=== PATIENT | male | born 1990 | race Caucasian/White ===

== ENCOUNTER → 2016-12-30 | Outpatient (CLI) | payer MEDICARE, OTHER ==
--- NOTE | 2016-12-30 11:53 | FL ---
EXAMINATION TYPE: FL barium swallow w video DATE OF EXAM ORDERED: 12/30/2016 HISTORY: R13.10 dysphagia. COMPARISON: None. TECHNIQUE: The patient was challenged with varying food substances ranging from thin liquids through solids. FINDINGS: The patient handled all foodstuffs well. There is no penetration or aspiration. IMPRESSION: NORMAL MODIFIED BARIUM SWALLOW.
== END | disposition home or self-care (01) ==
LOC: RADFLMAIN 11:03
PROVIDERS: ATTEND Internal Medicine
DX: R13.10 Dysphagia, unspecified (principal)
CPT/HCPCS: 74230

== ENCOUNTER 2020-10-28 09:23 | Inpatient (IN) | payer MEDICARE, OTHER ==
[2020-10-28 09:34] LABS: Glucose,Whole Blood 112 mg/dL (75-99)
[2020-10-28] MEDS ORDERED: SODIUM CHLORIDE 0.9% 1,000 ML IV ONE (09:34)
[2020-10-28] MEDS ORDERED: SODIUM CHLORIDE 0.9% 500 ML 500 ML IV ONE (09:34)
[2020-10-28 09:40] LABS: Basophils % (A) 1 %; Eosinophils % (A) 1 %; HCT 42.7 % (39.0-53.0); HGB 14.8 gm/dL (13.0-17.5); Lymphocytes # (A) 1.2 k/uL (1.0-4.8); Lymphocytes % (A) 25 %; MCHC 34.7 g/dL (31.0-37.0); MCV 86.6 fL (80.0-100.0); Mean Platelet Volume 7.4; Monocytes # (A) 0.3 k/uL (0-1.0); Monocytes % (A) 7 %; Neutrophils # (A) 3.1 k/uL (1.3-7.7); Neutrophils % (A) 65 %; Platelet Count 215 k/uL (150-450); RBC 4.93 m/uL (4.30-5.90); RDW 11.7 % (11.5-15.5); WBC 4.8 k/uL (3.8-10.6)
--- NOTE | 2020-10-28 09:47 | ED ---
General Adult HPI - General Chief complaint: Altered Mental Status Stated complaint: altered mental status Time Seen by Provider: 10/28/20 09:26 Source: EMS, RN notes reviewed, old records reviewed Mode of arrival: EMS Limitations: language barrier, altered mental status, physical limitation - History of Present Illness Initial comments: 30-year-old male presenting with EMS with altered mental status. Patient is coming from a alf, history of cerebral palsy. This morning the patient had been administered the wrong patient's medications which included fluphenazine, Pepcid, Claritin, and Lamictal. He was given these medications instead of his own. He was found to be more lethargic and was transported by EMS for evaluation. During transport he was lethargic, maintaining his airway with mild cough. Stable vitals. - Related Data Home Medications Medication Instructions Recorded Confirmed Albuterol Sulfate [Ventolin HFA] 2 puff INHALATION RT-QID PRN 10/28/20 10/28/20 Baclofen [Lioresal] 50 mg PO BID@0600,199910/28/20 10/28/20 Bismuth Subsalicylate 1 dose PO DIRECTED PRN 10/28/20 10/28/20 [Pepto-Bismol] Chlorhexidine Gluconate [Peridex] 15 ml PO BID@0800,199910/28/20 10/28/20 Cholecalciferol [Vitamin D3 (25 25 mcg PO DAILY@59910/28/20 10/28/20 Mcg = 1000 Iu)] Denta Paste 1 dose DENTAL BID@0800,199910/28/20 10/28/20 HYDROcodone/APAP 5-325MG [[place] 1 tab PO QID PRN 10/28/20 10/28/20 5-325] Hydrocortisone Cream 1 applic TOPICAL DIRECTED PRN 10/28/20 10/28/20 [Hydrocortisone 1% Cream] Ibuprofen [Motrin Ib] 200 mg PO TID PRN 10/28/20 10/28/20 Loperamide [Imodium] 2 - 4 mg PO DIRECTED PRN 10/28/20 10/28/20 Magnesium Hydroxide [Milk of 2,400 mg PO Q72H PRN 10/28/20 10/28/20 Magnesia] Omeprazole 20 mg PO DAILY@59910/28/20 10/28/20 Pseudoephedrine [Sudafed] 30 - 60 mg PO Q6H PRN 10/28/20 10/28/20 diphenhydrAMINE [Benadryl] 25 mg PO DIRECTED PRN 10/28/20 10/28/20 lisinopriL [Zestril] 10 mg PO DAILY@0600 10/28/20 10/28/20 tiZANidine [Zanaflex] 4 mg PO BID@599,199910/28/20 10/28/20 Allergies Allergy/AdvReac Type Severity Reaction Status Date / Time No Known Allergies Allergy Verified 10/28/20 10:00 Review of Systems ROS Statement: Those systems with pertinent positive or pertinent negative responses have been documented in the HPI. ROS Other: All systems not noted in ROS Statement are negative. Past Medical History Past Medical History: Unable to Obtain Additional Past Medical History / Comment(s): mentally challenged, cerbral palsy History of Any Multi-Drug Resistant Organisms: Unobtainable Past Surgical History: Unable to Obtain Past Psychological History: Unable to Obtain Smoking Status: Unknown if ever smoked Past Alcohol Use History: Unable to Obtain Past Drug Use History: Unable to Obtain General Exam Limitations: language barrier, altered mental status, physical limitation General appearance: in no apparent distress, obtunded Head exam: Present: atraumatic, normocephalic Eye exam: Present: normal appearance, PERRL ENT exam: Present: mucous membranes dry Neck exam: Present: normal inspection. Absent: tenderness, meningismus Respiratory exam: Present: rales, rhonchi. Absent: respiratory distress Cardiovascular Exam: Present: normal rhythm, tachycardia GI/Abdominal exam: Present: soft. Absent: distended, tenderness, guarding, r ebound Extremities exam: Present: other (Contracted extremities) Skin exam: Present: warm, dry, intact Course Vital Signs 10/28/20 10/28/20 09:25 09:34 Temperature 97.7 F Pulse Rate 112 H Respiratory 18 Rate Blood Pressure 124/89 O2 Sat by Pulse 94 L 92 L Oximetry EKG Findings - EKG Comments: EKG Findings:: EKG: Normal sinus rhythm, rate 97, [place] interval 126, QRS duration 92, QTC 419, no ST segment elevation. Medical Decision Making - Medical Decision Making 30 -year-old male with cerebral palsy, presents with decreased level consciousness, altered mental status after being administered the antipsychotic fluphenazine and Lamictal which are not his normal medications. He did have some tachypnea and hypoxia likely secondary to sedation. He has a strong gag reflex and a good cough. He does not require intubation while in the emergency department. He had been administered these medications at approximately 6 AM. Patient has normal laboratory testing. The chest x-ray does reveal severe scoliosis and a large hiatal hernia with no focal pneumonia no pneumothorax. He will be admitted for close observation. Case discussed with Dr. An who will admit. - Lab Data Result diagrams: 10/28/20 09:36 10/28/20 09:36 Lab Results 10/28/20 10/28/20 10/28/20 Range/Units 09:28 09:36 09:36 WBC 4.8 (3.8-10.6) k/uL RBC 4.93 (4.30-5.90) m/uL Hgb 14.8 (13.0-17.5) gm/dL Hct 42.7 (39.0-53.0) % MCV 86.6 (80.0-100.0) fL MCH 30.0 (25.0-35.0) pg MCHC 34.7 (31.0-37.0) g/dL RDW 11.7 (11.5-15.5) % Plt Count 215 (150-450) k/uL MPV 7.4 Neutrophils % 65 % Lymphocytes % 25 % Monocytes % 7 % Eosinophils % 1 % Basophils % 1 % Neutrophils # 3.1 (1.3-7.7) k/uL Lymphocytes # 1.2 (1.0-4.8) k/uL Monocytes # 0.3 (0-1.0) k/uL Eosinophils # 0.0 (0-0.7) k/uL Basophils # 0.0 (0-0.2) k/uL PT 11.5 (9.0-12.0) sec INR 1.1 (<1.2) APTT 23.6 (22.0-30.0) sec Sodium (137-145) mmol/L Potassium (3.5-5.1) mmol/L Chloride (98-107) mmol/L Carbon Dioxide (22-30) mmol/L Anion Gap mmol/L BUN (9-20) mg/dL Creatinine (0.66-1.25) mg/dL Est GFR (CKD-EPI)AfAm (>60 ml/min/1.73 sqM) Est GFR (CKD-EPI)NonAf (>60 ml/min/1.73 sqM) Glucose (74-99) mg/dL POC Glucose (mg/dL) 112 H (75-99) mg/dL POC Glu Inpatient Coder ID Mckenzie Cook Calcium (8.4-10.2) mg/dL Total Bilirubin (0.2-1.3) mg/dL AST (17-59) U/L ALT (4-49) U/L Alkaline Phosphatase (38-126) U/L Total Protein (6.3-8.2) g/dL Albumin (3.5-5.0) g/dL Urine Color Urine Appearance (Clear) Urine pH (5.0-8.0) Ur Specific [place] (1.001-1.035) Urine Protein (Negative) Urine Glucose (UA) (Negative) Urine Ketones (Negative) Urine Blood (Negative) Urine Nitrite (Negative) Urine Bilirubin (Negative) Urine Urobilinogen (<2.0) mg/dL Ur Leukocyte Esterase (Negative) Urine Opiates Screen (NotDetected) Ur Oxycodone Screen (NotDetected) Urine Methadone Screen (NotDetected) Ur Propoxyphene Screen (NotDetected) Ur Barbiturates Screen (NotDetected) U Tricyclic Antidepress (NotDetected) Ur Phencyclidine Scrn (NotDetected) Ur Amphetamines Screen (NotDetected) U Methamphetamines Scrn (NotDetected) U Benzodiazepines Scrn (NotDetected) Urine Cocaine Screen (NotDetected) U Marijuana (THC) Screen (NotDetected) 10/28/20 10/28/20 Range/Units 09:36 09:42 WBC (3.8-10.6) k/uL RBC (4.30-5.90) m/uL Hgb (13.0-17.5) gm/dL Hct (39.0-53.0) % MCV (80.0-100.0) fL MCH (25.0-35.0) pg MCHC (31.0-37.0) g/dL RDW (11.5-15.5) % Plt Count (150-450) k/uL MPV Neutrophils % % Lymphocytes % % Monocytes % % Eosinophils % % Basophils % % Neutrophils # (1.3-7.7) k/uL Lymphocytes # (1.0-4.8) k/uL Monocytes # (0-1.0) k/uL Eosinophils # (0-0.7) k/uL Basophils # (0-0.2) k/uL PT (9.0-12.0) sec INR (<1.2) APTT (22.0-30.0) sec Sodium 139 (137-145) mmol/L Potassium 4.0 (3.5-5.1) mmol/L Chloride 105 (98-107) mmol/L Carbon Dioxide 28 (22-30) mmol/L Anion Gap 6 mmol/L BUN 19 (9-20) mg/dL Creatinine 0.52 L (0.66-1.25) mg/dL Est GFR (CKD-EPI)AfAm >90 (>60 ml/min/1.73 sqM) Est GFR (CKD-EPI)NonAf >90 (>60 ml/min/1.73 sqM) Glucose 126 H (74-99) mg/dL POC Glucose (mg/dL) (75-99) mg/dL POC Glu Inpatient Coder ID Calcium 8.9 (8.4-10.2) mg/dL Total Bilirubin 0.5 (0.2-1.3) mg/dL AST 25 (17-59) U/L ALT 25 (4-49) U/L Alkaline Phosphatase 73 (38-126) U/L Total Protein 6.6 (6.3-8.2) g/dL Albumin 4.2 (3.5-5.0) g/dL Urine Color Yellow Urine Appearance Clear (Clear) Urine pH 6.5 (5.0-8.0) Ur Specific [place] 1.027 (1.001-1.035) Urine Protein Negative (Negative) Urine Glucose (UA) Negative (Negative) Urine Ketones Negative (Negative) Urine Blood Negative (Negative) Urine Nitrite Negative (Negative) Urine Bilirubin Negative (Negative) Urine Urobilinogen 3.0 (<2.0) mg/dL Ur Leukocyte Esterase Negative (Negative) Urine Opiates Screen Not Detected (NotDetected) Ur Oxycodone Screen Not Detected (NotDetected) Urine Methadone Screen Not Detected (NotDetected) Ur Propoxyphene Screen Not Detected (NotDetected) Ur Barbiturates Screen Not Detected (NotDetected) U Tricyclic Antidepress Not Detected (NotDetected) Ur Phencyclidine Scrn Not Detected (NotDetected) Ur Amphetamines Screen Not Detected (NotDetected) U Methamphetamines Scrn Not Detected (NotDetected) U Benzodiazepines Scrn Not Detected (NotDetected) Urine Cocaine Screen Not Detected (NotDetected) U Marijuana (THC) Screen Detected H (NotDetected) Disposition Clinical Impression: Altered mental status, Medication administered in error Disposition: ADMITTED IP TO THIS [facility] Condition: Stable Is patient prescribed a controlled substance at d/c from ED?: No Referrals: Javon Gunter MD [Primary Care Provider] - 1-2 days Decision to Admit Reason: Admit from EC Decision Date: 10/28/20 Decision Time: 10:34
[2020-10-28 09:49] LABS: ALT 25 U/L (4-49); AST 25 U/L (17-59); African American GFR (CKD) >90 (>60 ml/min/1.73 sqM); Albumin 4.2 g/dL (3.5-5.0); Alkaline Phosphatase 73 U/L (38-126); Anion Gap 6 mmol/L; Blood Urea Nitrogen 19 mg/dL (9-20); Calcium 8.9 mg/dL (8.4-10.2); Carbon Dioxide 28 mmol/L (22-30); Chloride 105 mmol/L (98-107); Glucose 126 mg/dL (74-99); Non-African American GFR(CKD) >90 (>60 ml/min/1.73 sqM); Sodium 139 mmol/L (137-145); Total Bilirubin 0.5 mg/dL (0.2-1.3); Total Protein 6.6 g/dL (6.3-8.2)
[2020-10-28 09:51] LABS: Appearance,Urine Clear (Clear); Bilirubin,Urine Negative (Negative); Blood,Urine Negative (Negative); Color,Urine Yellow; Glucose,Urine (UA) Negative (Negative); Ketones,Urine Negative (Negative); Leukocyte Esterase,Urine Negative (Negative); Nitrite,Urine Negative (Negative); PH, Urine 6.5 (5.0-8.0); Protein,Urine Negative (Negative); Specific Gravity,Urine 1.027 (1.001-1.035)
[2020-10-28 09:53] LABS: INR 1.1 (<1.2); Partial Thromboplastin Time 23.6 sec (22.0-30.0); Prothrombin Time 11.5 sec (9.0-12.0)
[2020-10-28 10:04] LABS: Amphetamine Screen,Urine Not Detected (NotDetected); Barbiturate Screen,Urine Not Detected (NotDetected); Benzodiazepines Screen,Urine Not Detected (NotDetected); Cocaine Screen,Urine Not Detected (NotDetected); Methadone Screen, Urine Not Detected (NotDetected); Opiate Screen,Urine Not Detected (NotDetected); Oxycodone Screen, Urine Not Detected (NotDetected); Phencyclidine Screen,Urine Not Detected (NotDetected); Tricyclic Antidepressant,Urine Not Detected (NotDetected); Urn Cannabinoid Scrn Detected (NotDetected)
--- NOTE | 2020-10-28 10:07 | XR ---
EXAMINATION TYPE: XR chest 1V portable DATE OF EXAM: 10/28/2020 COMPARISON: 06/02/2018 HISTORY: Altered mental status TECHNIQUE: Single frontal view of the chest is obtained. FINDINGS: Large hiatal hernia. There is a severe scoliosis. Coarsened interstitium seen. No pleural effusion or pneumothorax. No focal pneumonia. Heart is enlarged. IMPRESSION: 1. Severe rotatory scoliosis with a large hiatal hernia.
[2020-10-28] MEDS ORDERED: NALOXONE 0.4 MG/ML 1 ML VIAL IV PRN ×2 (10:34→14:46)
[2020-10-28 12:53] LABS: ABG Base Excess -0.3 mmol/L; ABG HCO3 25 mmol/L (21-25); ABG Oxygen Saturation 91.9 % (94-97); ABG PCO2 42 mmHg (35-45); ABG PH 7.38 (7.35-7.45); ABG PO2 62 mmHg (83-108); ABG TCO2 26 mmol/L (19-24); Allen Test Performed? Yes
[2020-10-28] MEDS: SODIUM CHLORIDE 0.9% 1,000 ML IV SCH (13:25)
[2020-10-28] MEDS ORDERED: ACETAMINOPHEN TAB 325 MG TAB PO PRN (14:46)
[2020-10-28] MEDS ORDERED: MAGNESIUM HYDROXIDE 2,400 MG/10 ML CUP PO PRN (14:48)
[2020-10-28] MEDS ORDERED: HYDROcodone/APAP 5-325MG 1 EACH TAB PO PRN (14:48)
[2020-10-28] MEDS ORDERED: PSEUDOEPHEDRINE 30 MG TAB PO PRN (14:48)
[2020-10-28] MEDS ORDERED: IBUPROFEN 200 MG TAB PO PRN (14:48)
[2020-10-28] MEDS ORDERED: LOPERAMIDE 2 MG CAP PO PRN (14:48)
[2020-10-28] MEDS ORDERED: BISMUTH SUBSALICYLATE 4,192 MG/240 ML BOTTLE PO PRN (14:48)
[2020-10-28] MEDS ORDERED: ALBUTEROL HFA INHALER INHALATION PRN (14:48)
[2020-10-28] MEDS ORDERED: HYDROCORTISONE 1% CREAM 30 GM TUBE TOPICAL PRN (14:48)
[2020-10-28] MEDS ORDERED: diphenhydrAMINE 25 MG CAP PO PRN (14:48)
--- NOTE | 2020-10-28 15:47 | P.HPIM ---
History of Present Illness H&P Date: 10/28/20 Chief Complaint: Somnolence 30 year old man with cerebral palsy and quadriparesis presented for somnolence. He lives in a senior living and was in his usual state of health when he was given the wrong medication by care staff. Patient subsequently became altered and difficult to arouse, resulting in EMS being called. He was BIBA for medical observation and was noted to have new oxygen requirement. He was arousable to painful stimulus only. He took 20mg famotidine, 5mg fluphenazine, and 350mg lamictal. He did not take his own medications as a consequence, which were b aclofen, tizanidine, atenolol, glimepiride, levothyroxine. Patient is not able to particpate in ROS of interview due to somnolence. Review of Systems See HPI Past Medical History Past Medical History: Unable to Obtain Additional Past Medical History / Comment(s): mentally challenged, cerbral palsy History of Any Multi-Drug Resistant Organisms: Unobtainable Past Surgical History: Unable to Obtain Past Psychological History: Unable to Obtain Smoking Status: Unknown if ever smoked Past Alcohol Use History: Unable to Obtain Past Drug Use History: Unable to Obtain Medications and Allergies Home Medications Medication Instructions Recorded Confirmed Type Albuterol Sulfate [Ventolin HFA] 2 puff INHALATION RT-QID PRN 10/28/20 10/28/20 History Baclofen [Lioresal] 50 mg PO BID@0600,199910/28/20 10/28/20 History Bismuth Subsalicylate 1 dose PO DIRECTED PRN 10/28/20 10/28/20 History [Pepto-Bismol] Chlorhexidine Gluconate [Peridex] 15 ml PO BID@0800,199910/28/20 10/28/20 History Cholecalciferol [Vitamin D3 (25 25 mcg PO DAILY@59910/28/20 10/28/20 History Mcg = 1000 Iu)] Denta Paste 1 dose DENTAL BID@0800,199910/28/20 10/28/20 History HYDROcodone/APAP 5-325MG [[place] 1 tab PO QID PRN 10/28/20 10/28/20 History 5-325] Hydrocortisone Cream 1 applic TOPICAL DIRECTED PRN 10/28/20 10/28/20 History [Hydrocortisone 1% Cream] Ibuprofen [Motrin Ib] 200 mg PO TID PRN 10/28/20 10/28/20 History Loperamide [Imodium] 2 - 4 mg PO DIRECTED PRN 10/28/20 10/28/20 History Magnesium Hydroxide [Milk of 2,400 mg PO Q72H PRN 10/28/20 10/28/20 History Magnesia] Omeprazole 20 mg PO DAILY@59910/28/20 10/28/20 History Pseudoephedrine [Sudafed] 30 - 60 mg PO Q6H PRN 10/28/20 10/28/20 History diphenhydrAMINE [Benadryl] 25 mg PO DIRECTED PRN 10/28/20 10/28/20 History lisinopriL [Zestril] 10 mg PO DAILY@59910/28/20 10/28/20 History tiZANidine [Zanaflex] 4 mg PO BID@599,199910/28/20 10/28/20 History Allergies Allergy/AdvReac Type Severity Reaction Status Date / Time No Known Allergies Allergy Verified 10/28/20 10:00 Physical Exam Osteopathic Statement: *. No significant issues noted on an osteopathic structural exam other than those noted in the History and Physical/Consult. Vitals: Vital Signs Temp Pulse Resp BP Pulse Ox 10/28/20 12:30 118 H 129/81 10/28/20 12:08 94 L 10/28/20 12:00 106 H 20 138/97 94 L 10/28/20 11:30 117 H 20 164/92 10/28/20 11:00 117 H 20 150/92 98 10/28/20 10:30 99 20 116/76 98 10/28/20 10:05 98 10/28/20 10:00 101 H 18 113/66 10/28/20 09:34 92 L 10/28/20 09:30 109 H 20 135/89 88 L 10/28/20 09:25 97.7 F 112 H 18 124/89 94 L Intake and Output 10/28/20 10/28/20 10/28/20 06:59 14:59 22:59 Other: Weight 43.091 kg Gen: Arousable to painful stimulus only HEENT: normocephalic, atraumatic, good hearing acuity, moist mucous membranes Resp: good air exchange, breathing comfortably with no accessory muscle use CVS: good distal perfusion x 4, GI: soft, NTTP, ND : no SPT, no CVAT, mccrary catheter is present MSK: no pitting edema, no clubbing Neuro: Cachectic lower and upper extremities, not following commands Results CBC & Chem 7: 10/28/20 09:36 10/28/20 09:36 Labs: Abnormal Lab Results - Last 24 Hours (Table) 10/28/20 10/28/20 10/28/20 Range/Units 09:28 09:36 09:42 ABG pO2 (83-108) mmHg ABG Total CO2 (19-24) mmol/L ABG O2 Saturation (94-97) % Creatinine 0.52 L (0.66-1.25) mg/dL Glucose 126 H (74-99) mg/dL POC Glucose (mg/dL) 112 H (75-99) mg/dL U Marijuana (THC) Screen Detected H (NotDetected) 10/28/20 Range/Units 12:50 ABG pO2 62 L (83-108) mmHg ABG Total CO2 26 H (19-24) mmol/L ABG O2 Saturation 91.9 L (94-97) % Creatinine (0.66-1.25) mg/dL Glucose (74-99) mg/dL POC Glucose (mg/dL) (75-99) mg/dL U Marijuana (THC) Screen (NotDetected) Assessment and Plan Assessment: Acute hypoxemic respiratory failure Acute toxic/metabolic encephalopathy -Admit to observation -Oxygen when necessary -ABG demonstrates hypoxemic respiratory failure without hypercarbia -Hold home tizanidine, baclofen -Repeat chest x-ray tomorrow a.m. to ensure no aspiration -For now, patient is protecting his airway, reassess frequently Cerebral palsy Hypothyroidism Chronic pain -Home medications reviewed and reconciled -Hold home glimepiride; qAC/HS sugar checks, low-dose sliding scale insulin -Hold home tizanidine, baclofen, [place] -Continue home atenolol, levothyroxine Patient is a full code Heparin 3 times a day for DVT prophylaxis
[2020-10-28] MEDS ORDERED: [UNRECOGNIZED DRUG - OTHER] DENTAL SCH (20:00)
[2020-10-28] MEDS ORDERED: ACETAMINOPHEN IV (For NPO) 1,000 MG in EMPTY BAG 1 BAG IVPB STA (22:48)
[2020-10-28] MEDS ORDERED: ACETAMINOPHEN IV (For NPO) 500 MG in EMPTY BAG 1 BAG IVPB STA (22:49)
[2020-10-29] MEDS ORDERED: SODIUM CHLORIDE 0.9% 500 ML 500 ML IV ONE (06:04)
[2020-10-29] MEDS: SODIUM CHLORIDE 0.9% 1,000 ML IV SCH ×2 (09:15→18:01)
[2020-10-29] MEDS: CHOLECALCIFEROL 25 MCG (1000 IU) TABLET PO SCH (09:16)
[2020-10-29] MEDS: PANTOPRAZOLE 40 MG TABLET PO SCH (09:16)
[2020-10-29] MEDS: lisinopriL 10 MG TAB PO SCH (09:16)
[2020-10-29 10:20] LABS: Basophils # (A) 0.03 X 10*3/uL (0.00-0.10); Basophils % (A) 0.2 %; Eosinophils # (A) 0 X 10*3/uL (0.04-0.35); Eosinophils % (A) 0 %; HCT 42.9 % (39.6-50.0); HGB 14.4 g/dL (13.0-17.0); Lymphocytes # (A) 0.66 X 10*3/uL (0.90-5.00); Lymphocytes % (A) 5.5 %; MCH 29.7 pg (27.0-32.0); MCHC 33.6 g/dL (32.0-37.0); MCV 88.5 fL (80.0-97.0); Mean Platelet Volume 10.9 fL (9.5-12.2); Monocytes # (A) 0.69 X 10*3/uL (0.20-1.00); Monocytes % (A) 5.7 %; Neutrophils # (A) 10.67 X 10*3/uL (1.80-7.70); Neutrophils % (A) 88.4 %; Platelet Count 205 X 10*3/uL (140-440); RBC 4.85 X 10*6/uL (4.40-5.60); RDW 11.9 % (11.5-14.5); WBC 12.08 X 10*3/uL (4.50-10.00)
[2020-10-29 10:55] LABS: African American GFR (CKD) 148.8 (60.0-200.0); Anion Gap 13.3 mmol/L (4.00-12.00); BUN/Creat Ratio 18.57 Ratio (12.00-20.00); Calcium 8.7 mg/dL (8.7-10.3); Carbon Dioxide 20.7 mmol/L (21.6-31.8); Magnesium 1.7 mg/dL (1.5-2.4); Non-African American GFR(CKD) 128.4 (60.0-200.0); Potassium 3.8 mmol/L (3.5-5.5)
--- NOTE | 2020-10-29 11:29 | XR ---
EXAMINATION TYPE: XR chest 1V portable DATE OF EXAM: 10/29/2020 COMPARISON: 10/28/2020 HISTORY: Fever TECHNIQUE: Single frontal view of the chest is obtained. FINDINGS: There is new patchy infiltrate in the left perihilar region. Nodule in the right upper lob e measuring 8 mm now seen on today's exam but not clearly seen on prior exam. Therefore could be jesus factual related to chest lead. Severe rotatory scoliosis. Large hiatal hernia cardiomegaly stable. IMPRESSION: 1. Interval development of patchy left upper lobe infiltrate correlate for developing pneumonia. 2. 8 mm nodule right upper lobe was not seen on recent previous exam could be artifactual. Follow-up chest x-ray recommended short-term basis.
[2020-10-29] MEDS ORDERED: SODIUM CHLORIDE 0.9% 1,000 ML IV ONE ×2 (11:39→11:40)
[2020-10-29 11:50] LABS: Appearance,Urine Clear (Clear); Bacteria,Urine Rare /hpf; Bilirubin,Urine Negative (Negative); Blood,Urine Moderate (Negative); Color,Urine Light Yellow; Glucose,Urine (UA) 3+ (Negative); Ketones,Urine 1+ (Negative); Leukocyte Esterase,Urine Moderate (Negative); Mucus,Urine Rare /hpf; Nitrite,Urine Negative (Negative); PH, Urine 7.5 (5.0-8.0); Protein,Urine Negative (Negative); RBC,Urine 3 /hpf (0-5); Urobilinogen,Urine <2.0 mg/dL (<2.0); WBC,Urine 16 /hpf (0-5)
[2020-10-29] MEDS: AZITHROMYCIN 500 MG in SODIUM CHLORIDE 0.9% 250 ML IVPB SCH (14:13)
--- NOTE | 2020-10-29 18:34 | P.PN ---
<Tito Canseco - Last Filed: 10/29/20 18:22> Subjective Progress Note Date: 10/29/20 Hospital course: Patient is a very pleasant 30-year-old male with a past medical history of cer ebral palsy with quadriparesis, developmentally delayed, hypothyroidism, and hypertension. Patient presented on 10/28/20 from a snf secondary to chief complaint of somnolence after reportedly receiving the wrong medication by care staff. Patient was reportedly given famotidine, fluphenazine, and Lamictal and was later found difficult to arouse resulting in EMS being called out to the snf. Upon arrival to Hospital patient was found to have significant new oxygen requirement and was arousable only to painful stimuli. Physical exam: Upon arrival to the bedside this morning patient was found to be awake and alert able to answer simple yes and no questions. Patient was found to be tachycardic with heart rate in 140s, diaphoretic, febrile, and upon examination had noted diffuse rhonchi. Orders placed for a lactate, chest x-ray, blood cultures, and urine culture. Lamictal and TSH levels also drawn. Lactate 2.6. Patient was given a 2 L bolus along with Tylenol for fever. Repeat lactate 1.6. Chest x- ray resulted revealing development of patchy left upper lobe infiltrate correlated for developing pneumonia along with 8 mm nodule in right upper lobe that was not seen on previous exam and could be identified as artifact as a repeat follow-up x-ray as recommended. Patient started on IV antibiotics azithromycin and Rocephin. He remains on 6 L O2 via nasal cannula with SpO2 of 95%. Patient denies having any headache, chest pain, palpitations, or feeling short of breath. General: non toxic, no distress, appears at stated age Derm: warm, dry Head: atraumatic, normocephalic, symmetric Eyes: EOMI, no lid lag, anicteric sclera Mouth: no lip lesion, mucus membranes moist Cardiovascular: S1S2 reg, no murmur, positive posterior tibial pulse bilateral, Lungs: CTA bilateral, no rhonchi, no rales , no accessory muscle use Abdominal: soft, nontender to palpation, no guarding, no appreciable organomegaly Ext: no gross muscle atrophy, no edema, no contractures Neuro: CN II-XI grossly intact, no focal neuro deficits Psych: Alert, oriented, appropriate affect Plan of care: Sepsis secondary to Left upper lobe pneumonia -Patient received sepsis bolus followed by maintenance infusion of IV fluids. -IV antibiotics: Rocephin and azithromycin. -Symptomatic care and pain management. -Tylenol for fever. Acute toxic/metabolic encephalopathy with somnolence possibly secondary to acute infection versus adverse medication reaction, resolved Cerebral palsy with quadriparesis -Resume baclofen and Zanaflex -Safe and supportive measures. Provide assistance as needed. -Aspiration precautions, one-to-one feed. Hypothyroidism -Continue daily medication regimen. CODE STATUS: Full code DVT prophylaxis: SCDs Discussed with: Patient and RN Anticipated discharge date: Clinical course to determine Anticipated discharge place: Back to snf A total of 45 minutes was spent on the care of this complex patient more than 50% of the time was spent in counseling and care coordination. Objective - Vital Signs Vital signs: Vital Signs Temp 98.9 F 10/29/20 09:46 Pulse 141 H 10/29/20 08:00 Resp 18 10/29/20 08:00 BP 147/112 10/29/20 08:00 Pulse Ox 96 10/29/20 08:59 Intake & Output 10/28/20 10/29/20 10/29/20 18:59 06:59 18:59 Intake Total 100 Output Total 400 700 400 Balance -400 -700 -300 Weight 43.091 kg 42 kg Intake: Oral 100 Output: Urine 400 700 400 Uretheral (Vu) 400 Other: Voiding Method Indwelling Catheter Indwelling Catheter - Labs CBC & Chem 7: 10/29/20 06:04 10/29/20 06:04 Labs: Abnormal Lab Results - Last 24 Hours (Table) 10/28/20 10/29/20 10/29/20 Range/Units 12:50 06:04 06:04 WBC 12.08 H (4.50-10.00) X 10*3/uL Neutrophils # 10.67 H (1.80-7.70) X 10*3/uL Lymphocytes # 0.66 L (0.90-5.00) X 10*3/uL Eosinophils # 0 L (0.04-0.35) X 10*3/uL ABG pO2 62 L (83-108) mmHg ABG Total CO2 26 H (19-24) mmol/L ABG O2 Saturation 91.9 L (94-97) % Carbon Dioxide 20.7 L (21.6-31.8) mmol/L Anion Gap 13.30 H (4.00-12.00) mmol/L Plasma Lactic Acid [place] (0.7-2.0) mmol/L Urine Glucose (UA) (Negative) Urine Ketones (Negative) Urine Blood (Negative) Ur Leukocyte Esterase (Negative) Urine WBC (0-5) /hpf Urine Bacteria (None) /hpf Urine Mucus (None) /hpf 10/29/20 10/29/20 Range/Units 10:09 11:00 WBC (4.50-10.00) X 10*3/uL Neutrophils # (1.80-7.70) X 10*3/uL Lymphocytes # (0.90-5.00) X 10*3/uL Eosinophils # (0.04-0.35) X 10*3/uL ABG pO2 (83-108) mmHg ABG Total CO2 (19-24) mmol/L ABG O2 Saturation (94-97) % Carbon Dioxide (21.6-31.8) mmol/L Anion Gap (4.00-12.00) mmol/L Plasma Lactic Acid [place] 2.6 H* (0.7-2.0) mmol/L Urine Glucose (UA) 3+ H (Negative) Urine Ketones 1+ H (Negative) Urine Blood Moderate H (Negative) Ur Leukocyte Esterase Moderate H (Negative) Urine WBC 16 H (0-5) /hpf Urine Bacteria Rare H (None) /hpf Urine Mucus Rare H (None) /hpf <Esther Guevara - Last Filed: 10/29/20 19:52> Objective - Vital Signs Vital signs: Vital Signs Temp 98.8 F 10/29/20 19:44 Pulse 127 H 10/29/20 19:44 Resp 18 10/29/20 19:44 BP 137/90 10/29/20 19:44 Pulse Ox 98 10/29/20 19:44 Intake & Output 10/29/20 10/29/20 10/30/20 06:59 18:59 06:59 Intake Total 100 Output Total 700 1900 Balance -700 -1800 Weight 42 kg 42 kg Intake: Oral 100 Output: Urine 700 1900 Other: Voiding Method Indwelling Catheter Indwelling Catheter - Labs CBC & Chem 7: 10/29/20 06:04 10/29/20 06:04 Labs: Abnormal Lab Results - Last 24 Hours (Table) 10/29/20 10/29/20 10/29/20 Range/Units 06:04 06:04 10:09 WBC 12.08 H (4.50-10.00) X 10*3/uL Neutrophils # 10.67 H (1.80-7.70) X 10*3/uL Lymphocytes # 0.66 L (0.90-5.00) X 10*3/uL Eosinophils # 0 L (0.04-0.35) X 10*3/uL Carbon Dioxide 20.7 L (21.6-31.8) mmol/L Anion Gap 13.30 H (4.00-12.00) mmol/L Plasma Lactic Acid [place] 2.6 H* (0.7-2.0) mmol/L Urine Glucose (UA) (Negative) Urine Ketones (Negative) Urine Blood (Negative) Ur Leukocyte Esterase (Negative) Urine WBC (0-5) /hpf Urine Bacteria (None) /hpf Urine Mucus (None) /hpf 10/29/20 Range/Units 11:00 WBC (4.50-10.00) X 10*3/uL Neutrophils # (1.80-7.70) X 10*3/uL Lymphocytes # (0.90-5.00) X 10*3/uL Eosinophils # (0.04-0.35) X 10*3/uL Carbon Dioxide (21.6-31.8) mmol/L Anion Gap (4.00-12.00) mmol/L Plasma Lactic Acid [place] (0.7-2.0) mmol/L Urine Glucose (UA) 3+ H (Negative) Urine Ketones 1+ H (Negative) Urine Blood Moderate H (Negative) Ur Leukocyte Esterase Moderate H (Negative) Urine WBC 16 H (0-5) /hpf Urine Bacteria Rare H (None) /hpf Urine Mucus Rare H (None) /hpf Assessment and Plan Assessment: Patient seen and examined independently. Patient was also seen by Tito Canseco NP and case was discussed. I am in agreement with subjective, physical exam, assessment and plan as written above and amended below. He denies any pain or shortness of breath. His never been hospitalized overn [facility] before. He states he got his tattoo for his birthday. Check Lamictal and TSH levels General: non toxic, no distress, appears at stated age Derm: warm, dry Head: atraumatic, normocephalic, symmetric Eyes: EOMI, no lid lag, anicteric sclera Mouth: no lip lesion, mucus membranes dry Cardiovascular: S1S2 reg, no murmur, positive posterior tibial pulse bilateral, Lungs: Decreased breath sounds bilateral, no rhonchi, no rales , no accessory muscle use Abdominal: soft, nontender to palpation, no guarding, no appreciable organomegaly Ext: no gross muscle atrophy, no edema, no contractures Neuro: CN II-XI grossly intact, bilateral upper and lower extremity contractures Psych: Alert, oriented, appropriate affect
[2020-10-29] MEDS: BACLOFEN 10 MG TAB PO SCH (20:10)
[2020-10-29] MEDS: tiZANidine 4 MG TAB PO SCH (20:11)
[2020-10-30] MEDS: tiZANidine 4 MG TAB PO SCH ×2 (05:45→19:33)
[2020-10-30] MEDS: SODIUM CHLORIDE 0.9% 1,000 ML IV SCH (05:45)
[2020-10-30] MEDS: BACLOFEN 10 MG TAB PO SCH ×2 (05:45→19:33)
[2020-10-30] MEDS: CHOLECALCIFEROL 25 MCG (1000 IU) TABLET PO SCH (07:34)
[2020-10-30] MEDS: lisinopriL 10 MG TAB PO SCH (07:34)
[2020-10-30] MEDS: PANTOPRAZOLE 40 MG TABLET PO SCH (07:34)
[2020-10-30] MEDS: AZITHROMYCIN 500 MG in SODIUM CHLORIDE 0.9% 250 ML IVPB SCH (08:19)
[2020-10-30 11:05] LABS: HCT 38.1 % (39.6-50.0); HGB 12.6 g/dL (13.0-17.0); MCHC 33.1 g/dL (32.0-37.0); MCV 90.7 fL (80.0-97.0); Mean Platelet Volume 10.9 fL (9.5-12.2); Platelet Count 212 X 10*3/uL (140-440); RDW 12.2 % (11.5-14.5); WBC 10.68 X 10*3/uL (4.50-10.00)
[2020-10-30 11:11] LABS: African American GFR (CKD) 148.8 (60.0-200.0); Anion Gap 9.2 mmol/L (4.00-12.00); BUN/Creat Ratio 11.43 Ratio (12.00-20.00); Calcium 8.3 mg/dL (8.7-10.3); Carbon Dioxide 23.8 mmol/L (21.6-31.8); Non-African American GFR(CKD) 128.4 (60.0-200.0); Potassium 3.8 mmol/L (3.5-5.5)
--- NOTE | 2020-10-30 11:16 | P.PN ---
<Tito Canseco - Last Filed: 10/30/20 12:30> Subjective Progress Note Date: 10/30/20 Hospital course: Patient is a very pleasant 30-year-old male with a past medical history of cer ebral palsy with quadriparesis, developmentally delayed, hypothyroidism, and hypertension. Patient presented on 10/28/20 from a retirement secondary to chief complaint of somnolence after reportedly receiving the wrong medication by care staff. Patient was reportedly given famotidine, fluphenazine, and Lamictal and was later found difficult to arouse resulting in EMS being called out to the retirement. Upon arrival to Hospital patient was found to have significant new oxygen requirement and was arousable only to painful stimuli. His urine drug screen was positive for marijuana. 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 He was admitted under our services for acute toxic/metabolic encephalopathy and later found to have signs and symptoms of sepsis with elevated lactate and repeat chest x-ray revealing development of patchy left upper lobe infiltrate correlating for developing pneumonia. Patient given sepsis bolus and started on azithromycin and Rocephin at this time. Blood cultures and urine cultures obtained. Lamictal level at 6.5. Physical exam: Upon arrival to the bedside this morning patient appears to be doing much better this morning. Tachycardia significantly improved from previous 140s and heart rate now down to 90s to 110s. He remains on 6 L O2 via nasal cannula will attempt to wean down as his SpO2 is 96%. He has remained afebrile for 24 hours since initiation of antibiotics and WBC count decreasing from 12.08-10.68. Patient with good appetite and eating breakfast via one-to-one feed and is doing well. Patient smiling and answering yes and no questions and continues to deny having any complaints including headache, chest pain, palpitations, or feeling short of breath. General: non toxic, no distress, appears at stated age Derm: warm, dry Head: atraumatic, normocephalic, symmetric Eyes: EOMI, no lid lag, anicteric sclera Mouth: no lip lesion, mucus membranes moist Cardiovascular: S1S2 reg, no murmur, positive posterior tibial pulse bilateral, Lungs: CTA bilateral, no rhonchi, no rales, or wheezes noted this morning. No accessory muscle use Abdominal: soft, nontender to palpation, no guarding, no appreciable organomegaly Ext: no gross muscle atrophy, no edema, no contractures Neuro: CN II-XI grossly intact, no focal neuro deficits Psych: Alert, oriented, appropriate affect Plan of care: Sepsis secondary to Left upper lobe pneumonia -Patient received sepsis bolus followed by maintenance infusion of IV fluids. -IV antibiotics: Rocephin and azithromycin. -Symptomatic care and pain management. -Tylenol as needed for fever. -Pulmonology consulted for possible aspiration pneumonia. Acute toxic/metabolic encephalopathy with somnolence possibly secondary to acute infection versus adverse medication reaction, resolved Cerebral palsy with quadriparesis -Continue baclofen and Zanaflex -Safe and supportive measures. Provide assistance as needed. -Aspiration precautions, one-to-one feed. Hypothyroidism -Continue daily medication regimen. CODE STATUS: Full code DVT prophylaxis: SCDs Discussed with: Patient and RN Anticipated discharge date: Clinical course to determine Anticipated discharge place: Back to retirement A total of 45 minutes was spent on the care of this complex patient more than 50% of the time was spent in counseling and care coordination. Objective - Vital Signs Vital signs: Vital Signs Temp 98.8 F 10/30/20 07:55 Pulse 97 10/30/20 07:55 Resp 15 10/30/20 07:55 BP 97/63 10/30/20 07:55 Pulse Ox 98 10/30/20 07:55 Intake & Output 10/29/20 10/30/20 10/30/20 18:59 06:59 18:59 Intake Total 100 300 Output Total 1900 Balance -1800 300 Weight 42 kg 42.2 kg Intake: Intake, IV Titration 300 Amount Azithromycin 500 mg In 250 Sodium Chloride 0.9% 250 ml @ 250 mls/hr IVPB DAILY [facility] Rx#:[id number] cefTRIAXone 1 gm In 50 Sodium Chloride 0.9% 50 ml @ 100 mls/hr IVPB Q24HR [facility] Rx#:[id number] Oral 100 Output: Urine 1900 Other: Voiding Method Indwelling Catheter Diaper Diaper Incontinent Incontinent # Voids 1 # Bowel Movements 1 - Labs CBC & Chem 7: 10/29/20 06:04 10/29/20 06:04 Labs: Abnormal Lab Results - Last 24 Hours (Table) 10/29/20 Range/Units 11:00 Urine Glucose (UA) 3+ H (Negative) Urine Ketones 1+ H (Negative) Urine Blood Moderate H (Negative) Ur Leukocyte Esterase Moderate H (Negative) Urine WBC 16 H (0-5) /hpf Urine Bacteria Rare H (None) /hpf Urine Mucus Rare H (None) /hpf Microbiology - Last 24 Hours (Table) 10/29/20 11:00 Urine Culture - Preliminary Urine,Voided <Edison An - Last Filed: 10/30/20 14:17> Objective - Vital Signs Vital signs: Vital Signs Temp 98.8 F 10/30/20 07:55 Pulse 97 10/30/20 07:55 Resp 15 10/30/20 07:55 BP 97/63 10/30/20 07:55 Pulse Ox 98 10/30/20 07:55 Intake & Output 10/29/20 10/30/20 10/30/20 18:59 06:59 18:59 Intake Total 100 300 Output Total 1900 Balance -1800 300 Weight 42 kg 42.2 kg Intake: Intake, IV Titration 300 Amount Azithromycin 500 mg In 250 Sodium Chloride 0.9% 250 ml @ 250 mls/hr IVPB DAILY [facility] Rx#:[id number] cefTRIAXone 1 gm In 50 Sodium Chloride 0.9% 50 ml @ 100 mls/hr IVPB Q24HR [facility] Rx#:[id number] Oral 100 Output: Urine 1900 Other: Voiding Method Indwelling Catheter Diaper Diaper Incontinent Incontinent # Voids 1 # Bowel Movements 1 - Labs CBC & Chem 7: 10/30/20 06:44 10/30/20 06:44 Labs: Abnormal Lab Results - Last 24 Hours (Table) 10/30/20 10/30/20 Range/Units 06:44 06:44 WBC 10.68 H (4.50-10.00) X 10*3/uL RBC 4.20 L (4.40-5.60) X 10*6/uL Hgb 12.6 L (13.0-17.0) g/dL Hct 38.1 L (39.6-50.0) % BUN 8.0 L (9.0-27.0) mg/dL BUN/Creatinine Ratio 11.43 L (12.00-20.00) Ratio Glucose 149 H (70-110) mg/dL Calcium 8.3 L (8.7-10.3) mg/dL Microbiology - Last 24 Hours (Table) 10/29/20 10:09 Blood Culture - Preliminary Blood No Growth after 24 hours 10/29/20 11:00 Urine Culture - Preliminary Urine,Voided Assessment and Plan Assessment: I reviewed the documentation as provided by the YUNG above, who is the original author of this note. I agree with the documented assessment and plan, with the following changes: none
--- NOTE | 2020-10-30 11:40 | P.CNPUL ---
History of Present Illness Consult date: 10/30/20 Reason for consult: cough, hypoxemia, pneumonia Chief complaint: Altered mental status History of present illness: Patient is a 30-year-old with cerebral palsy resident of [facility] brought into emergency department with altered mental status thought to be medication effect, review of the chart revealed that mental status alteration were related to medication not of his on, due to increased lethargy eventually transported to emergency department of further evaluation, patient on arrival noted to have slight cough congestion, with stable vitals, he does have prior history of bronchial asthma cerebral palsy mentally challenged, hypertension and GERD generalized aches and pains, admit x-ray shows scoliosis with large hiatal hernia no focal infiltrate was seen white cell count at that time 48,000 BUN/creatinine were normal sugars were stable 126, in-hospital patient was more arousable and awake however noted to be desaturating currently on 6 L oxygen, a follow-up chest x-ray showed developing left upper lobe infiltrate and nodule in right upper lobe could be artifact not seen in prior x-rays, patient has been started on IV Rocephin, tachycardia has improved white cell count also improved as well, he is arousable opens eyes follow simple commands, denies any chest pain does have cough and mild shortness of breath Review of Systems All systems: negative Past Medical History Past Medical History: Unable to Obtain Additional Past Medical History / Comment(s): mentally challenged, cerbral palsy History of Any Multi-Drug Resistant Organisms: Unobtainable Past Surgical History: Unable to Obtain Past Psychological History: Unable to Obtain Smoking Status: Unknown if ever smoked Past Alcohol Use History: Unable to Obtain Past Drug Use History: Unable to Obtain Medications and Allergies Home Medications Medication Instructions Recorded Confirmed Type Albuterol Sulfate [Ventolin HFA] 2 puff INHALATION RT-QID PRN 10/28/20 10/28/20 History Baclofen [Lioresal] 50 mg PO BID@0600,199910/28/20 10/28/20 History Bismuth Subsalicylate 1 dose PO DIRECTED PRN 10/28/20 10/28/20 History [Pepto-Bismol] Chlorhexidine Gluconate [Peridex] 15 ml PO BID@0800,199910/28/20 10/28/20 History Cholecalciferol [Vitamin D3 (25 25 mcg PO DAILY@00 10/28/20 10/28/20 History Mcg = 1000 Iu)] Denta Paste 1 dose DENTAL BID@799,199910/28/20 10/28/20 History HYDROcodone/APAP 5-325MG [Mobile 1 tab PO QID PRN 10/28/20 10/28/20 History 5-325] Hydrocortisone Cream 1 applic TOPICAL DIRECTED PRN 10/28/20 10/28/20 History [Hydrocortisone 1% Cream] Ibuprofen [Motrin Ib] 200 mg PO TID PRN 10/28/20 10/28/20 History Loperamide [Imodium] 2 - 4 mg PO DIRECTED PRN 10/28/20 10/28/20 History Magnesium Hydroxide [Milk of 2,400 mg PO Q72H PRN 10/28/20 10/28/20 History Magnesia] Omeprazole 20 mg PO DAILY@59910/28/20 10/28/20 History Pseudoephedrine [Sudafed] 30 - 60 mg PO Q6H PRN 10/28/20 10/28/20 History diphenhydrAMINE [Benadryl] 25 mg PO DIRECTED PRN 10/28/20 10/28/20 History lisinopriL [Zestril] 10 mg PO DAILY@59910/28/20 10/28/20 History tiZANidine [Zanaflex] 4 mg PO BID@599,199910/28/20 10/28/20 History Allergies Allergy/AdvReac Type Severity Reaction Status Date / Time No Known Allergies Allergy Verified 10/28/20 10:00 Physical Exam Vitals: Vital Signs Temp Pulse Resp BP Pulse Ox 10/30/20 07:55 98.8 F 97 15 97/63 98 10/30/20 02:48 98.9 F 111 H 19 125/63 96 10/29/20 19:44 98.8 F 127 H 18 137/90 98 10/29/20 15:03 99.6 F 135 H 18 167/113 91 L 10/29/20 12:47 136 H Intake and Output 10/29/20 10/30/20 10/30/20 22:59 06:59 14:59 Intake Total 300 Output Total 1100 Balance -1100 300 Intake: Intake, IV Titration 300 Amount Azithromycin 500 mg In 250 Sodium Chloride 0.9% 250 ml @ 250 mls/hr IVPB DAILY [facility] Rx#:[id number] cefTRIAXone 1 gm In 50 Sodium Chloride 0.9% 50 ml @ 100 mls/hr IVPB Q24HR [facility] Rx#:[id number] Output: Urine 1100 Other: Voiding Method Diaper Diaper Incontinent Incontinent # Voids 1 1 # Bowel Movements 1 Weight 42.2 kg - Constitutional General appearance: cooperative, disheveled - EENT Eyes: EOMI, PERRLA Ears: bilateral: normal - Neck Carotids: bilateral: upstroke normal - Respiratory Respiratory: bilateral: diminished - Cardiovascular Rhythm: regular Heart sounds: normal: S1, S2 - Gastrointestinal General gastrointestinal: normal bowel sounds, soft - Integumentary Integumentary: normal turgor - Musculoskeletal Unable to assess full neurological system, contractures of all 4 extremity, however more awake and alert and following simple commands Musculoskeletal: generalized weakness Results - Laboratory Findings CBC and BMP: 10/30/20 06:44 10/30/20 06:44 ABG ABG pH 7.38 (7.35-7.45) 10/28/20 12:50 ABG pCO2 42 mmHg (35-45) 10/28/20 12:50 ABG pO2 62 mmHg (83-108) L 10/28/20 12:50 ABG O2 Saturation 91.9 % (94-97) L 10/28/20 12:50 PT/INR, D-dimer PT 11.5 sec (9.0-12.0) 10/28/20 09:36 INR 1.1 (<1.2) 10/28/20 09:36 Abnormal lab findings: Abnormal Labs 10/28/20 10/28/20 10/28/20 09:28 09:36 09:42 WBC RBC Hgb Hct Neutrophils # Lymphocytes # Eosinophils # ABG pO2 ABG Total CO2 ABG O2 Saturation Carbon Dioxide Anion Gap BUN Creatinine 0.52 L BUN/Creatinine Ratio Glucose 126 H POC Glucose (mg/dL) 112 H Plasma Lactic Acid Amando Calcium Urine Glucose (UA) Urine Ketones Urine Blood Ur Leukocyte Esterase Urine WBC Urine Bacteria Urine Mucus U Marijuana (THC) Screen Detected H 10/28/20 10/29/20 10/29/20 12:50 06:04 06:04 WBC 12.08 H RBC Hgb Hct Neutrophils # 10.67 H Lymphocytes # 0.66 L Eosinophils # 0 L ABG pO2 62 L ABG Total CO2 26 H ABG O2 Saturation 91.9 L Carbon Dioxide 20.7 L Anion Gap 13.30 H BUN Creatinine BUN/Creatinine Ratio Glucose POC Glucose (mg/dL) Plasma Lactic Acid Amando Calcium Urine Glucose (UA) Urine Ketones Urine Blood Ur Leukocyte Esterase Urine WBC Urine Bacteria Urine Mucus U Marijuana (THC) Screen 10/29/20 10/29/20 10/30/20 10:09 11:00 06:44 WBC 10.68 H RBC 4.20 L Hgb 12.6 L Hct 38.1 L Neutrophils # Lymphocytes # Eosinophils # ABG pO2 ABG Total CO2 ABG O2 Saturation Carbon Dioxide Anion Gap BUN Creatinine BUN/Creatinine Ratio Glucose POC Glucose (mg/dL) Plasma Lactic Acid Amando 2.6 H* Calcium Urine Glucose (UA) 3+ H Urine Ketones 1+ H Urine Blood Moderate H Ur Leukocyte Esterase Moderate H Urine WBC 16 H Urine Bacteria Rare H Urine Mucus Rare H U Marijuana (THC) Screen 10/30/20 06:44 WBC RBC Hgb Hct Neutrophils # Lymphocytes # Eosinophils # ABG pO2 ABG Total CO2 ABG O2 Saturation Carbon Dioxide Anion Gap BUN 8.0 L Creatinine BUN/Creatinine Ratio 11.43 L Glucose 149 H POC Glucose (mg/dL) Plasma Lactic Acid Amando Calcium 8.3 L Urine Glucose (UA) Urine Ketones Urine Blood Ur Leukocyte Esterase Urine WBC Urine Bacteria Urine Mucus U Marijuana (THC) Screen - Diagnostic Findings Chest x-ray: report reviewed, image reviewed (As noted above) Assessment and Plan Assessment: Sepsis related to aspiration pneumonia involving left upper lobe Acute hypoxic respiratory failure due to above and left upper lobe pneumonia Left upper lobe pneumonia aspiration related appropriately being treated with supplemental oxygen broad-spectrum IV antibiotics however we will add Flagyl also Altered mental status encephalopathy multifactorial appeared to be predominantly related to medication affect however continued patient from pneumonia cannot be excluded Right upper lobe nodule versus artifact subcentimeter in size Cerebral palsy with quadriplegia Hypertension Hypothyroidism Plan: Plan as dictated above continue 6 L oxygen slowly titrated down to keep saturati on above 90-92%, aspiration precautions, broad-spectrum antibiotics follow clinical course closely we'll repeat chest x-ray in next 24-48 hours Time with Patient: Greater than 30
[2020-10-30] MEDS: metroNIDAZOLE-NS PMX 500 MG in SALINE 1 100ML.BAG IVPB SCH ×2 (15:25→23:27)
[2020-10-31] MEDS: SODIUM CHLORIDE 0.9% 1,000 ML IV SCH (05:45)
[2020-10-31] MEDS: BACLOFEN 10 MG TAB PO SCH ×2 (05:45→20:36)
[2020-10-31] MEDS: tiZANidine 4 MG TAB PO SCH ×2 (05:46→20:36)
[2020-10-31] MEDS: metroNIDAZOLE-NS PMX 500 MG in SALINE 1 100ML.BAG IVPB SCH ×2 (07:29→16:20)
[2020-10-31] MEDS: PANTOPRAZOLE 40 MG TABLET PO SCH (07:30)
[2020-10-31] MEDS: CHOLECALCIFEROL 25 MCG (1000 IU) TABLET PO SCH (07:30)
[2020-10-31] MEDS: lisinopriL 10 MG TAB PO SCH (07:30)
[2020-10-31 08:26] LABS: Basophils % (A) 0 %; Eosinophils # (A) 0.2 k/uL (0-0.7); Eosinophils % (A) 2 %; HCT 38.1 % (39.0-53.0); HGB 13.2 gm/dL (13.0-17.5); Lymphocytes # (A) 0.7 k/uL (1.0-4.8); Lymphocytes % (A) 9 %; MCH 30.5 pg (25.0-35.0); MCHC 34.6 g/dL (31.0-37.0); MCV 88.2 fL (80.0-100.0); Mean Platelet Volume 7.5; Monocytes # (A) 0.5 k/uL (0-1.0); Monocytes % (A) 6 %; Neutrophils % (A) 82 %; Platelet Count 186 k/uL (150-450); RBC 4.33 m/uL (4.30-5.90); WBC 7.4 k/uL (3.8-10.6)
[2020-10-31 08:45] LABS: African American GFR (CKD) >90 (>60 ml/min/1.73 sqM); Anion Gap 8 mmol/L; Blood Urea Nitrogen 14 mg/dL (9-20); Calcium 8.8 mg/dL (8.4-10.2); Carbon Dioxide 25 mmol/L (22-30); Chloride 104 mmol/L (98-107); Glucose 103 mg/dL (74-99); Non-African American GFR(CKD) >90 (>60 ml/min/1.73 sqM); Potassium 3.9 mmol/L (3.5-5.1); Sodium 137 mmol/L (137-145)
--- NOTE | 2020-10-31 09:06 | P.PN ---
<Tito Canseco - Last Filed: 10/31/20 14:22> Subjective Progress Note Date: 10/31/20 Hospital course: Patient is a very pleasant 30-year-old male with a past medical history of cer ebral palsy with quadriparesis, developmentally delayed, hypothyroidism, and hypertension. [facility] to chief complaint of somnolence after reportedly receiving the wrong medication by care staff. Patient was reportedly given famotidine, fluphenazine, and Lamictal and was later found difficult to arouse resulting in EMS being called [facility] to the [facility]. Upon arrival to Hospital patient was found to have significant new oxygen requirement and was arousable only to painful stimuli. His urine drug screen was positive for marijuana. 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 He was admitted under our services for acute toxic/metabolic encephalopathy and later found to have signs and symptoms of sepsis with elevated lactate and repeat chest x-ray revealing development of patchy left upper lobe infiltrate correlating for developing pneumonia. Patient was given sepsis bolus and started on IV antibiotics: azithromycin and Rocephin. Blood cultures and urine cultures obtained. Lamictal level at 6.5. Blood cultures showing no growth after 48 hours. Urine culture positive for gram- negative bacilli, patient currently on Rocephin which provides cross coverage for pneumonia and UTI. Physical exam: Patient seen and fully evaluated at the bedside this morning. He appears to be in good spirits smiling and states he is looking forward to going back to his home. Patient denies having any headache, chest pain, palpitations, shortness of breath, or cough. General: non toxic, no distress Derm: warm, dry Head: atraumatic, normocephalic, symmetric Eyes: EOMI, no lid lag, anicteric sclera Mouth: no lip lesion, mucus membranes moist Cardiovascular: S1S2 reg, no murmur, positive posterior tibial pulse bilateral, Lungs: CTA bilateral, no rhonchi, no rales, or wheezes noted this morning. No accessory muscle use Abdominal: soft, nontender to palpation, no guarding, no appreciable organomegaly Ext: Muscle atrrophy with underdeveloped lower exremities and upper extremity contractures. No edema. Neuro: CN II-XI grossly intact, no focal neuro deficits Psych: Alert, oriented, appropriate affect Plan of care: Sepsis secondary to Left upper lobe pneumonia -Patient received sepsis bolus followed by maintenance infusion of IV fluids. -IV antibiotics: Rocephin and azithromycin. -Symptomatic care and pain management. -Tylenol as needed for fever. -Pulmonology consulted for possible aspiration pneumonia. -Continue to wean off oxygen, currently on 2 L. Acute toxic/metabolic encephalopathy with somnolence possibly secondary to acute infection versus adverse medication reaction, resolved Cerebral palsy with quadriparesis -Continue baclofen and Zanaflex -Safe and supportive measures. Provide assistance as needed. -Aspiration precautions, one-to-one feed. Hypothyroidism -Continue daily medication regimen. CODE STATUS: Full code DVT prophylaxis: SCDs Discussed with: Patient and RN Anticipated discharge date: Possibly tomorrow Anticipated discharge place: Back to [facility]it[facility]iary A total of 45 minutes was spent on the care of this complex patient more than 50% of the time was spent in counseling and care coordination. Objective - Vital Signs Vital signs: Vital Signs Temp 98.4 F 10/31/20 08:00 Pulse 85 10/31/20 08:00 Resp 18 10/31/20 08:00 BP 100/69 10/31/20 08:00 Pulse Ox 98 10/31/20 08:18 Intake & Output 10/30/20 10/31/20 10/31/20 18:59 06:59 18:59 Intake Total 300 Balance 300 Intake: Intake, IV Titration 300 Amount Azithromycin 500 mg In 250 Sodium Chloride 0.9% 250 ml @ 250 mls/hr IVPB DAILY [facility] Rx#:[id number] cefTRIAXone 1 gm In 50 Sodium Chloride 0.9% 50 ml @ 100 mls/hr IVPB Q24HR [facility] Rx#:[id number] Other: Voiding Method Diaper Diaper Incontinent Incontinent # Voids 4 3 # Bowel Movements 1 1 - Labs CBC & Chem 7: 10/31/20 07:55 10/31/20 07:55 Labs: Abnormal Lab Results - Last 24 Hours (Table) 10/30/20 10/30/20 10/31/20 Range/Units 06:44 06:44 07:55 WBC 10.68 H (4.50-10.00) X 10*3/uL RBC 4.20 L (4.40-5.60) X 10*6/uL Hgb 12.6 L (13.0-17.0) g/dL Hct 38.1 L 38.1 L (39.6-50.0) % Lymphocytes # 0.7 L (1.0-4.8) k/uL BUN 8.0 L (9.0-27.0) mg/dL Creatinine (0.66-1.25) mg/dL BUN/Creatinine Ratio 11.43 L (12.00-20.00) Ratio Glucose 149 H (70-110) mg/dL Calcium 8.3 L (8.7-10.3) mg/dL 10/31/20 Range/Units 07:55 WBC (4.50-10.00) X 10*3/uL RBC (4.40-5.60) X 10*6/uL Hgb (13.0-17.0) g/dL Hct (39.6-50.0) % Lymphocytes # (1.0-4.8) k/uL BUN (9.0-27.0) mg/dL Creatinine 0.51 L (0.66-1.25) mg/dL BUN/Creatinine Ratio (12.00-20.00) Ratio Glucose 103 H (70-110) mg/dL Calcium (8.7-10.3) mg/dL Microbiology - Last 24 Hours (Table) 10/29/20 11:00 Urine Culture - Preliminary Urine,Voided Gram Neg Bacilli 10/29/20 13:10 Blood Culture - Preliminary Blood No Growth after 24 hours 10/29/20 10:09 Blood Culture - Preliminary Blood No Growth after 24 hours <Esther Guevara - Last Filed: 10/31/20 18:15> Objective - Vital Signs Vital signs: Vital Signs Temp 99.1 F 10/31/20 14:00 Pulse 110 H 10/31/20 14:00 Resp 20 10/31/20 14:00 BP 111/63 10/31/20 14:00 Pulse Ox 96 10/31/20 14:00 Intake & Output 10/30/20 10/31/20 10/31/20 18:59 06:59 18:59 Intake Total 300 400 Balance 300 400 Weight 42.2 kg Intake: Intake, IV Titration 300 400 Amount Azithromycin 500 mg In 250 250 Sodium Chloride 0.9% 250 ml @ 250 mls/hr IVPB DAILY [facility] Rx#:[id number] cefTRIAXone 1 gm In 50 50 Sodium Chloride 0.9% 50 ml @ 100 mls/hr IVPB Q24HR [facility] Rx#:[id number] metroNIDAZOLE-NS PMX 500 100 mg In Saline 1 100ml.bag @ 100 mls/hr IVPB Q8HR [facility] Rx#:[id number] Other: Voiding Method Diaper Diaper Diaper Incontinent Incontinent Incontinent # Voids 4 3 # Bowel Movements 1 1 - Labs CBC & Chem 7: 10/31/20 07:55 10/31/20 07:55 Labs: Abnormal Lab Results - Last 24 Hours (Table) 10/31/20 10/31/20 Range/Units 07:55 07:55 Hct 38.1 L (39.0-53.0) % Lymphocytes # 0.7 L (1.0-4.8) k/uL Creatinine 0.51 L (0.66-1.25) mg/dL Glucose 103 H (74-99) mg/dL Microbiology - Last 24 Hours (Table) 10/29/20 13:10 Blood Culture - Preliminary Blood No Growth after 48 hours 10/29/20 10:09 Blood Culture - Preliminary Blood No Growth after 48 hours 10/29/20 11:00 Urine Culture - Preliminary Urine,Voided Gram Neg Bacilli Assessment and Plan Assessment: Patient seen and examined independently. Patient was also seen by Tito Canseco NP and case was discussed. I am in agreement with subjective, physical exam, assessment and plan as written above and amended below. He denies pain and shortness of breath, appears happy and without complaints. General: non toxic, no distress, appears at stated age Derm: warm, dry Head: atraumatic, normocephalic, symmetric Eyes: EOMI, no lid lag, anicteric sclera Mouth: no lip lesion, mucus membranes moist Cardiovascular: S1S2 reg, no murmur, positive posterior tibial pulse bilateral, Lungs: Course bs bilateral, no rhonchi, no rales , no accessory muscle use Abdominal: soft, nontender to palpation, no guarding, no appreciable organomegaly Ext: + gross muscle atrophy, no edema, + contractures Psych: awake, happy
--- NOTE | 2020-10-31 09:22 | XR ---
EXAMINATION TYPE: XR chest 1V portable DATE OF EXAM: 10/31/2020 COMPARISON: 10/29/2020 HISTORY: Cough TECHNIQUE: Single frontal view of the chest is obtained. FINDINGS: Large hiatal hernia. There is a severe scoliosis. Coarsened interstitium seen. No pleural effusion or pneumothorax. No focal pneumonia. Heart is enlarged. IMPRESSION: Patchy left upper lobe infiltrate stable.
[2020-10-31] MEDS: AZITHROMYCIN 500 MG in SODIUM CHLORIDE 0.9% 250 ML IVPB SCH (09:40)
--- NOTE | 2020-10-31 10:51 | P.PN ---
Subjective Progress Note Date: 10/31/20 Principal diagnosis: Sepsis related to aspiration pneumonia involving left upper lobe Acute hypoxic respiratory failure due to above and left upper lobe pneumonia Left upper lobe pneumonia aspiration related appropriately being treated with supplemental oxygen broad-spectrum IV antibiotics however we will add Flagyl also Altered mental status encephalopathy multifactorial appeared to be predominantly related to medication affect however continued patient from pneumonia cannot be excluded Right upper lobe nodule versus artifact subcentimeter in size Cerebral palsy with quadriplegia Hypertension Hypothyroidism 10/31/2020, patient seen eval examined during the rounds labs reviewed medications reviewed, respiratory status significantly improved chest x-ray on Tuesday this morning reviewed left upper lobe infiltrates are stable, white cell count decreased, no artifact or nodule seen on this chest x-ray Patient is a 30-year-old with cerebral palsy resident of [facility] brought into emergency department with altered mental status thought to be medication effect, review of the chart revealed that mental status alteration were related to medication not of his on, due to increased lethargy eventually transported to emergency department of further evaluation, patient on arrival noted to have slight cough congestion, with stable vitals, he does have prior history of bronchial asthma cerebral palsy mentally challenged, hypertension and GERD generalized aches and pains, admit x-ray shows scoliosis with large hiatal hernia no focal infiltrate was seen white cell count at that time 48,000 BUN/creatinine were normal sugars were stable 126, in-hospital patient was more arousable and awake however noted to be desaturating currently on 6 L oxygen, a follow-up chest x-ray showed developing left upper lobe infiltrate and nodule in right upper lobe could be artifact not seen in prior x-rays, patient has been started on IV Rocephin, tachycardia has improved white cell count also improved as well, he is arousable opens eyes follow simple commands, denies any chest pain does have cough and mild shortness of breath Objective - Vital Signs Vital signs: Vital Signs Temp 98.4 F 10/31/20 08:00 Pulse 85 10/31/20 08:00 Resp 18 10/31/20 08:00 BP 100/69 10/31/20 08:00 Pulse Ox 98 10/31/20 08:18 Intake & Output 10/30/20 10/31/20 10/31/20 18:59 06:59 18:59 Intake Total 300 Balance 300 Intake: Intake, IV Titration 300 Amount Azithromycin 500 mg In 250 Sodium Chloride 0.9% 250 ml @ 250 mls/hr IVPB DAILY [facility] Rx#:[id number] cefTRIAXone 1 gm In 50 Sodium Chloride 0.9% 50 ml @ 100 mls/hr IVPB Q24HR [facility] Rx#:[id number] Other: Voiding Method Diaper Diaper Incontinent Incontinent # Voids 4 3 # Bowel Movements 1 1 - Exam - Constitutional General appearance: cooperative, disheveled - EENT Eyes: EOMI, PERRLA Ears: bilateral: normal - Neck Carotids: bilateral: upstroke normal - Respiratory Respiratory: bilateral: diminished - Cardiovascular Rhythm: regular Heart sounds: normal: S1, S2 - Gastrointestinal General gastrointestinal: normal bowel sounds, soft - Integumentary Integumentary: normal turgor - Musculoskeletal Unable to assess full neurological system, contractures of all 4 extremity, however more awake and alert and following simple commands Musculoskeletal: generalized weakness - Labs CBC & Chem 7: 10/31/20 07:55 10/31/20 07:55 Labs: Abnormal Lab Results - Last 24 Hours (Table) 10/30/20 10/30/20 10/31/20 Range/Units 06:44 06:44 07:55 WBC 10.68 H (4.50-10.00) X 10*3/uL RBC 4.20 L (4.40-5.60) X 10*6/uL Hgb 12.6 L (13.0-17.0) g/dL Hct 38.1 L 38.1 L (39.6-50.0) % Lymphocytes # 0.7 L (1.0-4.8) k/uL BUN 8.0 L (9.0-27.0) mg/dL Creatinine (0.66-1.25) mg/dL BUN/Creatinine Ratio 11.43 L (12.00-20.00) Ratio Glucose 149 H (70-110) mg/dL Calcium 8.3 L (8.7-10.3) mg/dL 10/31/20 Range/Units 07:55 WBC (4.50-10.00) X 10*3/uL RBC (4.40-5.60) X 10*6/uL Hgb (13.0-17.0) g/dL Hct (39.6-50.0) % Lymphocytes # (1.0-4.8) k/uL BUN (9.0-27.0) mg/dL Creatinine 0.51 L (0.66-1.25) mg/dL BUN/Creatinine Ratio (12.00-20.00) Ratio Glucose 103 H (70-110) mg/dL Calcium (8.7-10.3) mg/dL Microbiology - Last 24 Hours (Table) 10/29/20 11:00 Urine Culture - Preliminary Urine,Voided Gram Neg Bacilli 10/29/20 13:10 Blood Culture - Preliminary Blood No Growth after 24 hours 10/29/20 10:09 Blood Culture - Preliminary Blood No Growth after 24 hours Assessment and Plan Assessment: Sepsis related to aspiration pneumonia involving left upper lobe Acute hypoxic respiratory failure due to above and left upper lobe pneumonia Left upper lobe pneumonia aspiration related appropriately being treated with supplemental oxygen broad-spectrum IV antibiotics however we will add Flagyl also Altered mental status encephalopathy multifactorial appeared to be predominantly related to medication affect however continued patient from pneumonia cannot be excluded Right upper lobe nodule versus artifact subcentimeter in size Cerebral palsy with quadriplegia Hypertension Hypothyroidism Plan: Plan as dictated above continue titrated down to keep saturation above 90-92% as tolerated, aspiration precautions, broad-spectrum antibiotics follow clinical course closely repeat chest x-ray performed this morning reviewed once patient is on room air agree with discharge planning on oral antibiotics Time with Patient: Greater than 30
--- NOTE | 2020-10-31 12:33 | CDI ---
Documentation Clarification Form Date: 10/31/2020 12:22:25 PM From: Julia Domingo RN, CCDS Admit Date: 10/29/2020 01:24:00 PM Patient Name: Martin Lombardi Visit Number: [id number] ATTENTION: The Clinical Documentation Specialists (CDI) and [facility] Coding Staff appreciate your assistance in clarifying documentation. Please respond to the clarification below the line at the bottom and electronically sign. The CDI & [facility] Coding staff will review the response and follow-up if needed. Please note: Queries are made part of the Legal Health Record. If you have any questions, please contact the author of this message via ITS. Dr. Esther Guevara The Registered Dietitian assessment on 10/29 indicates this patient meets criteria for an additional diagnosis. Based on this information and the findings below, is there an additional diagnosis that is clinically appropriate for this patient? History/Risk Factors: CP, Quadriplegia, Encephalopathy, Sepsis Clinical Indicators: RD Consult Assessment: Completed 10/29- see comments and recommendations in below body of query Current BMI: 15.9 Insufficient energy intake: "Difficulty Swallowing with aspiration pneumonia, decreased appetite, AMS" 10/29 Dietary Consult: Loss muscle mass: "Moderate temporalis and pectoralis muscle wasting, legs curled up and small" 10/29 Dietary Consult Loss of subcutaneous fat: "Underweight, emaciated" Decreased hand marine consultant strength: paralysis w/ atrophy and contractures per nursing assessments Treatment: Dietary Consult: completed 10/29 Supplements: Magic cups TID Lab monitoring: AM daily 1:1 Feed Is there an additional diagnosis that is clinically appropriate for this patient? [ ] Mild Protein-Calorie Malnutrition [ ] Moderate Protein-Calorie Malnutrition [ ] Severe Protein-Calorie Malnutrition [ ] Other condition, please specify [ ] Unable to Determine (Template Last Revised: June 2020) Moderate Protein-Calorie Malnutrition MTDD
[2020-10-31 13:05] VITALS: BMI 16.0
[2020-11-01] MEDS: metroNIDAZOLE-NS PMX 500 MG in SALINE 1 100ML.BAG IVPB SCH ×2 (00:13→07:53)
[2020-11-01] MEDS: BACLOFEN 10 MG TAB PO SCH (05:45)
[2020-11-01] MEDS: tiZANidine 4 MG TAB PO SCH (05:46)
[2020-11-01] MEDS: SODIUM CHLORIDE 0.9% 1,000 ML IV SCH (05:58)
[2020-11-01] MEDS: lisinopriL 10 MG TAB PO SCH (07:53)
[2020-11-01] MEDS: CHOLECALCIFEROL 25 MCG (1000 IU) TABLET PO SCH (07:53)
[2020-11-01] MEDS: PANTOPRAZOLE 40 MG TABLET PO SCH (07:53)
[2020-11-01 08:12] VITALS: BP 112/72; PULSE 89; RESP 18; TEMP 98.6
[2020-11-01] MEDS: AZITHROMYCIN 500 MG in SODIUM CHLORIDE 0.9% 250 ML IVPB SCH (09:24)
--- NOTE | 2020-11-01 11:24 | P.DS ---
<Tito Canseco - Last Filed: 11/01/20 12:18> Providers Expected date of discharge: 11/01/20 Hospital Course: Discharge Diagnosis: Sepsis secondary to Left upper lobe pneumonia UTI with culture positive for Proteus mirabilis Acute toxic/metabolic encephalopathy with somnolence possibly secondary to acute infection versus adverse medication reaction, resolved Cerebral palsy with quadriparesis Hypothyroidism Hospital Course: Patient is a very pleasant 30-year-old male with a past medical history of cerebral palsy with quadriparesis, developmentally delayed, hypothyroidism, and hypertension. Patient presented on 10/28/20 from a detention secondary to chief complaint of somnolence after reportedly receiving the wrong medication by care staff. Patient was reportedly given famotidine, fluphenazine, and Lamictal and was later found difficult to arouse resulting in EMS being called out to the detention. Upon arrival to Hospital patient was found to have significant new oxygen requirement and was arousable only to painful stimuli. His urine drug screen was positive for marijuana. 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 He was admitted under our services for acute toxic/metabolic encephalopathy and later found to have signs and symptoms of sepsis with elevated lactate and repeat chest x-ray revealing development of patchy left upper lobe infiltrate correlating for developing pneumonia. Patient was given sepsis bolus and started on IV antibiotics: azithromycin and Rocephin. Blood cultures and urine cultures obtained. Lamictal level at 6.5. Blood c ultures showing no growth after 48 hours. Urine culture positive for Proteus mirabilis. Patient's condition improving daily. Leukocytosis resolved WBC count of 7.4. Patient has remained afebrile for greater than 72 hours and has been weaned completely off of oxygen and now on room air. Vital signs stable. Patient is stable for discharge back to detention. Patient is being discharged home on Ceftin and Vibramycin 4 days totaling 7 days of antibiotic coverage for treatment of his pneumonia and UTI. Physical exam: Patient seen and fully evaluated at the bedside this morning. He appears to be in good spirits smiling and states he is looking forward to going back to his home. Patient denies having any headache, chest pain, palpitations, shortness of breath, or cough. General: non toxic, no distress Derm: warm, dry Head: atraumatic, normocephalic, symmetric Eyes: EOMI, no lid lag, anicteric sclera Mouth: no lip lesion, mucus membranes moist Cardiovascular: S1S2 reg, no murmur, positive posterior tibial pulse bilateral, Lungs: CTA bilateral, no rhonchi, no rales, or wheezes noted this morning. No accessory muscle use Abdominal: soft, nontender to palpation, no guarding, no appreciable organomegaly Ext: Muscle atrrophy with underdeveloped lower exremities and upper extremity contractures. No edema. Neuro: CN II-XI grossly intact, no focal neuro deficits Psych: Alert, oriented, appropriate affect A total of 45 minutes of time were spent preparing this complex discharge summary. Patient Condition at Discharge: Stable Plan - Discharge Summary Discharge Rx Participant: No New Discharge Prescriptions: New Cefuroxime [Ceftin] 500 mg PO BID 4 Days #8 tab Doxycycline [Vibramycin] 100 mg PO BID 4 Days #2 capsule Continue Pseudoephedrine [Sudafed] 30 - 60 mg PO Q6H PRN PRN Reason: Cold Symptoms Hydrocortisone Cream [Hydrocortisone 1% Cream] 1 applic TOPICAL DIRECTED PRN PRN Reason: INSECT BITES Loperamide [Imodium] 2 - 4 mg PO DIRECTED PRN PRN Reason: Loose Stool diphenhydrAMINE [Benadryl] 25 mg PO DIRECTED PRN PRN Reason: Allergy Symptoms Magnesium Hydroxide [Milk of Magnesia] 2,400 mg PO Q72H PRN PRN Reason: Constipation tiZANidine [Zanaflex] 4 mg PO BID@599,1999 Cholecalciferol [Vitamin D3 (25 Mcg = 1000 Iu)] 25 mcg PO DAILY@0600 lisinopriL [Zestril] 10 mg PO DAILY@0600 Omeprazole 20 mg PO DAILY@0600 Chlorhexidine Gluconate [Peridex] 15 ml PO BID@08,1999 Baclofen [Lioresal] 50 mg PO BID@599,1999 Denta Paste 1 dose DENTAL BID@00,1999 Bismuth Subsalicylate [Pepto-Bismol] 1 dose PO DIRECTED PRN PRN Reason: Vomiting Albuterol Sulfate [Ventolin HFA] 2 puff INHALATION RT-QID PRN PRN Reason: Shortness Of Breath Ibuprofen [Motrin Ib] 200 mg PO TID PRN PRN Reason: LOWER BACK PAIN HYDROcodone/APAP 5-325MG [Howe 5-325] 1 tab PO QID PRN PRN Reason: BACK PAIN Discharge Medication List Albuterol Sulfate [Ventolin HFA] 2 puff INHALATION RT-QID PRN 10/28/20 [History] Baclofen [Lioresal] 50 mg PO BID@599,199910/28/20 [History] Bismuth Subsalicylate [Pepto-Bismol] 1 dose PO DIRECTED PRN 10/28/20 [History] Chlorhexidine Gluconate [Peridex] 15 ml PO BID@799,199910/28/20 [History] Cholecalciferol [Vitamin D3 (25 Mcg = 1000 Iu)] 25 mcg PO DAILY@59910/28/20 [History] Denta Paste 1 dose DENTAL BID@799,199910/28/20 [History] HYDROcodone/APAP 5-325MG [Howe 5-325] 1 tab PO QID PRN 10/28/20 [History] Hydrocortisone Cream [Hydrocortisone 1% Cream] 1 applic TOPICAL DIRECTED PRN 10/28/20 [History] Ibuprofen [Motrin Ib] 200 mg PO TID PRN 10/28/20 [History] Loperamide [Imodium] 2 - 4 mg PO DIRECTED PRN 10/28/20 [History] Magnesium Hydroxide [Milk of Magnesia] 2,400 mg PO Q72H PRN 10/28/20 [History] Omeprazole 20 mg PO DAILY@59910/28/20 [History] Pseudoephedrine [Sudafed] 30 - 60 mg PO Q6H PRN 10/28/20 [History] diphenhydrAMINE [Benadryl] 25 mg PO DIRECTED PRN 10/28/20 [History] lisinopriL [Zestril] 10 mg PO DAILY@59910/28/20 [History] tiZANidine [Zanaflex] 4 mg PO BID@599,199910/28/20 [History] Cefuroxime [Ceftin] 500 mg PO BID 4 Days #8 tab 11/01/20 [Rx] Doxycycline [Vibramycin] 100 mg PO BID 4 Days #2 capsule 11/01/20 [Rx] Follow up Appointment(s)/Referral(s): Javon Gunter MD [Primary Care Provider] - 1-2 days [facility] [NON-STAFF] - () Ajay Burnett MD [STAFF PHYSICIAN] - 1 Week Patient Instructions/Handouts: Pneumonia (DC) Activity/Diet/Wound Care/Special Instructions: *Call Tre at [facility] at discharge: [phone] and give report. If they cannot transport home, set up at w/c van with [facility]: [phone] and have them send bill to public guardian's office. Discharge Disposition: HOME WITH HOME HEALTH SERVICES <Esther Guevara - Last Filed: 11/01/20 18:15> Providers Date of admission: 10/29/20 13:24 Attending physician: Edison An MD Consults: 10/30/20 11:04 Consult Physician Routine Consulting Provider: Ajay Burnett Consult Reason/Comments: Aspiration pneumonia Do you want consulting provider notified?: Yes Primary care physician: Javon Gunter MD Hospital Course: Patient seen and examined independently. Patient was also seen by Tito Canseco NP and case was discussed. I am in agreement with discharge diagnosis, hospital course, and physical exam as written above and amended below. Smiles when asked if he feels well and if he wants to go home. General: non toxic, no distress, appears at stated age Derm: warm, dry Head: atraumatic, normocephalic, symmetric Eyes: EOMI, no lid lag, anicteric sclera Mouth: no lip lesion, mucus membranes moist Cardiovascular: S1S2 reg, no murmur, positive posterior tibial pulse bilateral, Lungs: course bs bilateral, no rhonchi, no rales , no accessory muscle use Abdominal: soft, nontender to palpation, no guarding, no appreciable organomegaly
[2020-11-01] MEDS ORDERED: metroNIDAZOLE 500 MG TAB PO SCH (16:00)
[2020-11-02] MEDS ORDERED: AZITHROMYCIN 500 MG TAB PO SCH (09:00)
== END 2020-11-01 13:30 | disposition home health service (06) | DRG 871 ==
LOC: EEVIPCON 09:23 → EC 09:23 → 3SCARD 10:34 → 6NMEDSUR 14:55 → 4SSUR 16:39 → OBSVTOIN 10-29 13:24
PROVIDERS: ADMIT Internal Medicine; ATTEND Internal Medicine
DX: A41.9 Sepsis, unspecified organism (principal); G92 Toxic encephalopathy; J69.0 Pneumonitis due to inhalation of food and vomit; J96.01 Acute respiratory failure with hypoxia; N39.0 Urinary tract infection, site not specified; E87.2 Acidosis; E03.9 Hypothyroidism, unspecified; G80.9 Cerebral palsy, unspecified; G89.29 Other chronic pain; F79 Unspecified intellectual disabilities; R91.1 Solitary pulmonary nodule; T42.75XA Adverse effect of unspecified antiepileptic and sedative-hypnotic drugs, initial encounter; B96.4 Proteus (mirabilis) (morganii) as the cause of diseases classified elsewhere; I10 Essential (primary) hypertension; J45.909 Unspecified asthma, uncomplicated; K44.9 Diaphragmatic hernia without obstruction or gangrene; M41.9 Scoliosis, unspecified; Z20.822 Contact with and (suspected) exposure to COVID-19; Z79.899 Other long term (current) drug therapy
CPT/HCPCS: 36415; 36600; 71045; 80048; 80053; 80175; 80306; 81001; 81003; 82805; 83605; 83735; 84443; 85025; 85027; 85610; 85730; 87040; 87077; 87086; 87186; 87635; 93005; 94760; 99285

== ENCOUNTER 2023-06-13 04:56 | Emergency (ER) | payer MEDICARE, OTHER ==
[2023-06-13] MEDS: SODIUM CHLORIDE 0.9% 500 ML 500 ML IV STA (05:34)
[2023-06-13 05:55] LABS: Basophils # (A) 0.1 k/uL (0-0.2); Basophils % (A) 1 %; Eosinophils # (A) 0.1 k/uL (0-0.7); Eosinophils % (A) 0 %; HCT 45.7 % (39.0-53.0); HGB 15.1 gm/dL (13.0-17.5); Lymphocytes # (A) 1.9 k/uL (1.0-4.8); Lymphocytes % (A) 18 %; MCH 29.1 pg (25.0-35.0); MCHC 33.1 g/dL (31.0-37.0); Monocytes # (A) 0.7 k/uL (0-1.0); Monocytes % (A) 7 %; Neutrophils % (A) 74 %; Platelet Count 303 k/uL (150-450); RBC 5.19 m/uL (4.30-5.90); RDW 12.1 % (11.5-15.5); WBC 10.8 k/uL (3.8-10.6)
[2023-06-13 06:06] LABS: ALT 25 U/L (4-49); AST 38 U/L (17-59); African American GFR (CKD) >90 (>60 ml/min/1.73 sqM); Albumin 5.1 g/dL (3.5-5.0); Alkaline Phosphatase 96 U/L (38-126); Anion Gap 16 mmol/L; Blood Urea Nitrogen 44 mg/dL (9-20); Calcium 10.1 mg/dL (8.4-10.2); Carbon Dioxide 20 mmol/L (22-30); Chloride 106 mmol/L (98-107); Glucose 104 mg/dL (74-99); Non-African American GFR(CKD) >90 (>60 ml/min/1.73 sqM); Potassium 4.8 mmol/L (3.5-5.1); Sodium 142 mmol/L (137-145); Total Bilirubin 1.1 mg/dL (0.2-1.3); Total Protein 8.8 g/dL (6.3-8.2)
--- NOTE | 2023-06-13 07:14 | ED ---
General Adult HPI - General Source: EMS Mode of arrival: EMS Limitations: altered mental status, physical limitation - History of Present Illness Onset/Timin -: days(s) Severity scale (1-10): 0 Improves with: none Worsens with: none Associated Symptoms: confusion Treatments Prior to Arrival: none <Kameron Ayala - Last Filed: 06/21/23 06:43> - General Source: RN notes reviewed, old records reviewed <Conrado Garcia - Last Filed: 06/23/23 00:42> - General Chief complaint: Recheck/Abnormal Lab/Rx Stated complaint: AMS Time Seen by Provider: 06/13/23 04:58 - History of Present Illness Initial comments: This patient is a 33-year-old man, sent from [facility] home for having hallucinations. The patient had been diagnosed with COVID infection. When I interviewed the patient, he is denying complaints. He denies pains. No dyspnea. He does request soda to drink at history and physical. (Kameron Ayala) This is a 33-year-old male to ER for evaluation of altered mental status (Conrado Garcia) - Related Data Home Medications Medication Instructions Recorded Confirmed Albuterol Sulfate [Ventolin HFA] 2 puff INHALATION RT-QID PRN 10/28/20 10/28/20 Baclofen [Lioresal] 50 mg PO BID@0600,199910/28/20 10/28/20 Bismuth Subsalicylate 1 dose PO DIRECTED PRN 10/28/20 10/28/20 [Pepto-Bismol] Chlorhexidine Gluconate [Peridex] 15 ml PO BID@0800,199910/28/20 10/28/20 Cholecalciferol [Vitamin D3 (25 25 mcg PO DAILY@59910/28/20 10/28/20 Mcg = 1000 Iu)] Denta Paste 1 dose DENTAL BID@0800,199910/28/20 10/28/20 HYDROcodone/APAP 5-325MG [Edwards 1 tab PO QID PRN 10/28/20 10/28/20 5-325] Hydrocortisone Cream 1 applic TOPICAL DIRECTED PRN 10/28/20 10/28/20 [Hydrocortisone 1% Cream] Ibuprofen [Motrin Ib] 200 mg PO TID PRN 10/28/20 10/28/20 Loperamide [Imodium] 2 - 4 mg PO DIRECTED PRN 10/28/20 10/28/20 Magnesium Hydroxide [Milk of 2,400 mg PO Q72H PRN 10/28/20 10/28/20 Magnesia] Omeprazole 20 mg PO DAILY@59910/28/20 10/28/20 Pseudoephedrine [Sudafed] 30 - 60 mg PO Q6H PRN 10/28/20 10/28/20 diphenhydrAMINE [Benadryl] 25 mg PO DIRECTED PRN 10/28/20 10/28/20 lisinopriL [Zestril] 10 mg PO DAILY@59910/28/20 10/28/20 tiZANidine [Zanaflex] 4 mg PO BID@599,199910/28/20 10/28/20 Previous Rx's Medication Instructions Recorded Cefuroxime [Ceftin] 500 mg PO BID 4 Days #8 tab 11/01/20 Doxycycline [Vibramycin] 100 mg PO BID 4 Days #2 capsule 11/01/20 Nirmatrelvir/Ritonavir [Paxlovid 1 each PO ONCE #10 each 06/13/23 150-100 mg Dose Pack] Allergies Allergy/AdvReac Type Severity Reaction Status Date / Time No Known Allergies Allergy Verified 10/28/20 10:00 Review of Systems ROS Other: All systems not noted in ROS Statement are negative. Limitations: ROS unobtainable due to patients medical condition Respiratory: Denies: dyspnea Cardiovascular: Denies: chest pain Gastrointestinal: Denies: abdominal pain, vomiting Neurological: Denies: headache <Kameron Ayala - Last Filed: 06/21/23 06:43> ROS Other: All systems not noted in ROS Statement are negative. <Conrado Garcia - Last Filed: 06/23/23 00:42> ROS Statement: Those systems with pertinent positive or pertinent negative responses have been documented in the HPI. Past Medical History Past Medical History: Unable to Obtain Additional Past Medical History / Comment(s): mentally challenged, cerbral palsy History of Any Multi-Drug Resistant Organisms: Unobtainable Past Surgical History: Unable to Obtain Past Psychological History: Unable to Obtain Smoking Status: Unknown if ever smoked Past Alcohol Use History: Unable to Obtain Past Drug Use History: Unable to Obtain <Kameron Ayala Last Filed: 06/21/23 06:43> General Exam Limitations: altered mental status, physical limitation General appearance: alert, in no apparent distress Head exam: Present: atraumatic Eye exam: Present: normal appearance. Absent: scleral icterus, conjunctival injection ENT exam: Present: mucous membranes dry Neck exam: Present: normal inspection. Absent: tenderness, meningismus Respiratory exam: Present: normal lung sounds bilaterally. Absent: respiratory distress, wheezes, rales, rhonchi, stridor Cardiovascular Exam: Present: regular rate, normal rhythm, normal heart sounds. Absent: systolic murmur, diastolic murmur, rubs, gallop GI/Abdominal exam: Present: soft. Absent: distended, tenderness, guarding, rebound, rigid Extremities exam: Present: normal capillary refill. Absent: normal inspection (Metric muscle wasting lower extremities), pedal edema Back exam: Present: normal inspection Neurological exam: Present: alert Skin exam: Present: warm, dry, intact, normal color. Absent: rash <Kameron Ayala - Filed: 06/21/23 06:43> General appearance: alert, in no apparent distress Head exam: Present: atraumatic, normocephalic, normal inspection Eye exam: Present: normal appearance, PERRL, EOMI. Absent: scleral icterus, conjunctival injection, periorbital swelling ENT exam: Present: normal exam, mucous membranes moist Neck exam: Present: normal inspection. Absent: tenderness, meningismus, lymphadenopathy Respiratory exam: Present: normal lung sounds bilaterally. Absent: respiratory distress, wheezes, rales, rhonchi, stridor Cardiovascular Exam: Present: regular rate, normal rhythm, normal heart sounds. Absent: systolic murmur, diastolic murmur, rubs, gallop, clicks GI/Abdominal exam: Present: soft, normal bowel sounds. Absent: distended, tenderness, guarding, rebound, rigid Extremities exam: Present: normal inspection, full ROM, normal capillary refill. Absent: tenderness, pedal edema, joint swelling, calf tenderness Back exam: Present: normal inspection Neurological exam: Present: alert, oriented X3, CN II-XII intact Psychiatric exam: Present: normal affect, normal mood Skin exam: Present: warm, dry, intact, normal color. Absent: rash <Conrado Garcia - Last Filed: 06/23/23 00:42> Course <Conrado Garcia - Last Filed: 06/23/23 00:42> Vital Signs 06/13/23 06/13/23 06/13/23 05:06 06:18 06:47 Temperature 99.2 F 99.6 F Pulse Rate 101 H 110 H Respiratory 16 12 Rate Blood Pressure 135/99 115/99 O2 Sat by Pulse 96 95 Oximetry 06/13/23 06/13/23 06/13/23 07:52 09:58 11:26 Temperature 98.0 F 98.0 F Pulse Rate 130 H 109 H 78 Respiratory 18 18 16 Rate Blood Pressure 115/99 146/78 135/68 O2 Sat by Pulse 95 95 98 Oximetry - Reevaluation(s) Reevaluation #1: Medical records reviewed (Conrado Garcia) Reevaluation #2: Patient symptoms improved (Conrado Garcia) Medical Decision Making - Lab Data Result diagrams: 06/13/23 05:28 06/13/23 05:28 <Kameron Ayala - Last Filed: 06/21/23 06:43> - Lab Data Result diagrams: 06/13/23 05:28 06/13/23 05:28 - Radiology Data Radiology results: report reviewed (CT brain and chest x-ray are negative for acute disease interpreted by me), image reviewed <Conrado Gacria - Last Filed: 06/23/23 00:42> - Medical Decision Making Was pt. sent in by a medical professional or institution (, PA, FURNACE STOCK INSPECTOR, urgent care, hospital, or [place] health care facility...) When possible be specific @ -[No] Did you speak to anyone other than the patient for history (EMS, parent, family, police, friend...)? What history was obtained from this source @ -[No] Did you review nursing and triage notes (agree or disagree)? Why? @ -[I reviewed and agree with nursing and triage notes] Were old charts reviewed (outside hosp., previous admission, EMS record, old EKG, old radiological studies, urgent care reports/EKG's, [place] health care facility records)? Report findings @ -[No old charts were reviewed] Differential Diagnosis (chest pain, altered mental status, abdominal pain women, abdominal pain men, vaginal bleeding, weakness, fever, dyspnea, syncope, h eadache, dizziness, GI bleed, back pain, seizure, CVA, palpatations, mental health, musculoskeletal)? @ -[Differential Altered Mental Status: Hypoglycemia, DKA, hypercapnia, ETOH, overdose, CO poisoning, trauma, myxedema coma, HTN encephalopathy, infection, encephalitis, psychosis, intercranial he morrhage, hepatic encephalopathy, meningitis, CVA, this is not meant to be an all-inclusive list EKG interpreted by me (3pts min.). @ -[As above] X-rays interpreted by me (1pt min.). @ -[None done] CT interpreted by me (1pt min.). @ -[None done] U/S interpreted by me (1pt. min.). @ -[None done] What testing was considered but not performed or refused? (CT, X-rays, U/S, labs)? Why? @ -[None] What meds were considered but not given or refused? Why? @ -[None] Did you discuss the management of the patient with other professionals (professionals i.e. , PA, FURNACE STOCK INSPECTOR, lab, RT, psych nurse, social work instructor, corrective and manual arts therapist, teacher, chief human resources officer, bilingual case manager)? Give summary @ -[No] Was smoking cessation discussed for >3mins.? @ -[No] Was critical care preformed (if so, how long)? @ -[No] Were there social determinants of health that impacted care today? How? (Homelessness, low income, unemployed, alcoholism, drug addiction, transportation, low edu. Level, literacy, decrease access to med. care, assisted, rehab)? @ -[No] Was there de-escalation of care discussed even if they declined (Discuss DNR or withdrawal of care, Hospice)? DNR status @ -[No] What co-morbidities impacted this encounter? (DM, HTN, Smoking, COPD, CAD, Cancer, CVA, ARF, Chemo, Hep., AIDS, mental health diagnosis, sleep apnea, morbid obesity)? @ -[None] Was patient admitted / discharged? Hospital course, mention meds given and route, prescriptions, significant lab abnormalities, going to OR and other pertinent info. @ -[Patient is a 33-year-old who is sent from [facility] home to have evaluation after reporting some hallucinations. The patient's CT scan is pending at the time of shift change] (Kameron Ayala) 33 male positive for altered mental status and fevers with hallucinations positive for coronavirus and can be discharged home (Conrado Garcia) - Lab Data Lab Results 06/13/23 06/13/23 06/13/23 Range/Units 05:28 05:28 05:28 WBC 10.8 H (3.8-10.6) k/uL RBC 5.19 (4.30-5.90) m/uL Hgb 15.1 (13.0-17.5) gm/dL Hct 45.7 (39.0-53.0) % MCV 88.0 (80.0-100.0) fL MCH 29.1 (25.0-35.0) pg MCHC 33.1 (31.0-37.0) g/dL RDW 12.1 (11.5-15.5) % Plt Count 303 (150-450) k/uL MPV 8.0 Neutrophils % 74 % Lymphocytes % 18 % Monocytes % 7 % Eosinophils % 0 % Basophils % 1 % Neutrophils # 8.0 H (1.3-7.7) k/uL Lymphocytes # 1.9 (1.0-4.8) k/uL Monocytes # 0.7 (0-1.0) k/uL Eosinophils # 0.1 (0-0.7) k/uL Basophils # 0.1 (0-0.2) k/uL Sodium 142 (137-145) mmol/L Potassium 4.8 (3.5-5.1) mmol/L Chloride 106 (98-107) mmol/L Carbon Dioxide 20 L (22-30) mmol/L Anion Gap 16 mmol/L BUN 44 H (9-20) mg/dL Creatinine 1.05 (0.66-1.25) mg/dL Est GFR (CKD-EPI)AfAm >90 (>60 ml/min/1.73 sqM) Est GFR (CKD-EPI)NonAf >90 (>60 ml/min/1.73 sqM) Glucose 104 H (74-99) mg/dL Plasma Lactic Acid Amando 0.9 (0.7-2.0) mmol/L Calcium 10.1 (8.4-10.2) mg/dL Total Bilirubin 1.1 (0.2-1.3) mg/dL AST 38 (17-59) U/L ALT 25 (4-49) U/L Alkaline Phosphatase 96 (38-126) U/L Total Protein 8.8 H (6.3-8.2) g/dL Albumin 5.1 H (3.5-5.0) g/dL Urine Color Urine Appearance (Clear) Urine pH (5.0-8.0) Ur Specific [place] (1.001-1.035) Urine Protein (Negative) Urine Glucose (UA) (Negative) Urine Ketones (Negative) Urine Blood (Negative) Urine Nitrite (Negative) Urine Bilirubin (Negative) Urine Urobilinogen (<2.0) mg/dL Ur Leukocyte Esterase (Negative) Urine RBC (0-5) /hpf Urine WBC (0-5) /hpf Urine Bacteria (None) /hpf Hyaline Casts (0-2) /lpf Urine Mucus (None) /hpf 06/13/23 Range/Units 07:51 WBC (3.8-10.6) k/uL RBC (4.30-5.90) m/uL Hgb (13.0-17.5) gm/dL Hct (39.0-53.0) % MCV (80.0-100.0) fL MCH (25.0-35.0) pg MCHC (31.0-37.0) g/dL RDW (11.5-15.5) % Plt Count (150-450) k/uL MPV Neutrophils % % Lymphocytes % % Monocytes % % Eosinophils % % Basophils % % Neutrophils # (1.3-7.7) k/uL Lymphocytes # (1.0-4.8) k/uL Monocytes # (0-1.0) k/uL Eosinophils # (0-0.7) k/uL Basophils # (0-0.2) k/uL Sodium (137-145) mmol/L Potassium (3.5-5.1) mmol/L Chloride (98-107) mmol/L Carbon Dioxide (22-30) mmol/L Anion Gap mmol/L BUN (9-20) mg/dL Creatinine (0.66-1.25) mg/dL Est GFR (CKD-EPI)AfAm (>60 ml/min/1.73 sqM) Est GFR (CKD-EPI)NonAf (>60 ml/min/1.73 sqM) Glucose (74-99) mg/dL Plasma Lactic Acid Amando (0.7-2.0) mmol/L Calcium (8.4-10.2) mg/dL Total Bilirubin (0.2-1.3) mg/dL AST (17-59) U/L ALT (4-49) U/L Alkaline Phosphatase (38-126) U/L Total Protein (6.3-8.2) g/dL Albumin (3.5-5.0) g/dL Urine Color Yellow Urine Appearance Clear (Clear) Urine pH 5.5 (5.0-8.0) Ur Specific [place] 1.028 (1.001-1.035) Urine Protein 1+ H (Negative) Urine Glucose (UA) Negative (Negative) Urine Ketones 1+ H (Negative) Urine Blood Negative (Negative) Urine Nitrite Negative (Negative) Urine Bilirubin Negative (Negative) Urine Urobilinogen <2.0 (<2.0) mg/dL Ur Leukocyte Esterase Small H (Negative) Urine RBC 1 (0-5) /hpf Urine WBC 11 H (0-5) /hpf Urine Bacteria Few H (None) /hpf Hyaline Casts 12 H (0-2) /lpf Urine Mucus Occasional H (None) /hpf Disposition <Kameron Ayala - Last Filed: 06/21/23 06:43> Is patient prescribed a controlled substance at d/c from ED?: No Time of Disposition: 10:00 <Conrado Garcia - Last Filed: 06/23/23 00:42> Clinical Impression: Altered mental status, Tachycardia, Coronavirus infection, Fever, Delirium Disposition: HOME SELF-CARE Condition: Fair Instructions (If sedation given, give patient instructions): Altered Mental Status (ED) Prescriptions: Nirmatrelvir/Ritonavir [Paxlovid 150-100 mg Dose Pack] 1 each PO ONCE #10 each Referrals: Javon Gunter MD [Primary Care Provider] - 1-2 days
--- NOTE | 2023-06-13 07:44 | CT ---
EXAMINATION TYPE: CT brain wo con DATE OF EXAM: 06/13/2023 COMPARISON: None HISTORY: 33 year-old male mental status changes TECHNIQUE: Examination was done in axial plane without intravenous contrast. Coronal and sagittal r econstructions performed. CT DLP: 1197.4 mGycm Automated exposure control for dose reduction was used. FINDINGS: There is no evidence of acute intracranial hemorrhage, acute ischemic changes, mass, mass-effect, or extra-axial fluid collection. There is no effacement of cerebral sulci or basal subarachnoid cister ns. There is marked hydrocephalus, Arturo's ratio calculated at 0.48. There is no midline shift. Salter- white matter distinction is preserved. Scattered mild mucosal thickening ethmoid air cells. On delayed nasal septum. Mastoid air cells are w ell pneumatized. Orbits and globes are intact. Some motion limiting the exam. IMPRESSION: Marked hydrocephalus. King ratio calculated at 0.48. Consider neurosurgical evaluation and the poten tial need for shunting. No acute intracranial hemorrhage, midline shift, or herniation.
--- NOTE | 2023-06-13 07:58 | XR ---
EXAMINATION TYPE: XR chest 1V DATE OF EXAM: 06/13/2023 COMPARISON: 10/31/2020 HISTORY: 33 year-old male, with infection, hallucinations TECHNIQUE: Single frontal view of the chest is obtained. FINDINGS: Severe dextroconvex scoliosis and associated thoracic deformity. Hazy densities at the mid lungs likely relating to overlying soft tissue. Unable to exclude some patchy retrocardiac opacity. Remainder of the lungs and pleural spaces appear clear. IMPRESSION: Severe dextroconvex scoliosis redemonstrated. There seems to be some patchy atelectasis versus mild infiltrate in the retrocardiac region.
[2023-06-13 08:03] VITALS: TEMP 98
[2023-06-13] MEDS: SODIUM CHLORIDE 0.9% 1,000 ML IV STA ×2 (08:16→10:34)
[2023-06-13] MEDS: ACETAMINOPHEN IV (For NPO) 600 MG in EMPTY BAG 1 BAG IVPB STA (08:19)
[2023-06-13] MEDS: IBUPROFEN IV 400 MG in SODIUM CHLORIDE 0.9% 100 ML IV ONE (08:20)
[2023-06-13 08:24] LABS: Appearance,Urine Clear (Clear); Bacteria,Urine Few /hpf; Bilirubin,Urine Negative (Negative); Blood,Urine Negative (Negative); Color,Urine Yellow; Glucose,Urine (UA) Negative (Negative); Hyaline Casts,Urine 12 /lpf (0-2); Ketones,Urine 1+ (Negative); Leukocyte Esterase,Urine Small (Negative); Mucus,Urine Occasional /hpf; Nitrite,Urine Negative (Negative); PH, Urine 5.5 (5.0-8.0); Protein,Urine 1+ (Negative); RBC,Urine 1 /hpf (0-5); Specific Gravity,Urine 1.028 (1.001-1.035); Urobilinogen,Urine <2.0 mg/dL (<2.0); WBC,Urine 11 /hpf (0-5)
[2023-06-13] MEDS: BACLOFEN 10 MG TAB PO STA (10:27)
[2023-06-13] MEDS: tiZANidine 4 MG TAB PO STA (10:27)
[2023-06-13 11:34] VITALS: BP 135/68; PULSE 78; RESP 16
== END 2023-06-13 11:27 | disposition home or self-care (01) ==
LOC: EC 04:56
DX: R41.82 Altered mental status, unspecified (principal); R00.0 Tachycardia, unspecified; F05 Delirium due to known physiological condition; B34.2 Coronavirus infection, unspecified
CPT/HCPCS: 36415; 80053; 83605; 85025; 81001; 71045; 70450; 99285; 96365; 96368; 96361 ×4; J0131; J1741

== ENCOUNTER 2023-06-30 13:28 | Inpatient (IN) | payer MEDICARE, OTHER ==
--- NOTE | 2023-06-30 13:38 | ED ---
Fever HPI - General Chief Complaint: Fever Stated Complaint: fever,tachy Time Seen by Provider: 06/30/23 13:30 Source: patient, RN notes reviewed, old records reviewed Mode of arrival: EMS Limitations: no limitations - History of Present Illness Initial Comments: This is a 33-year-old male to the ER for evaluation, patient presents today for evaluation regards to fever. Patient has fever elevated heart rate with NSAID and for altered mental status. Patient is a poor historian unable to give history MD Complaint: fever, malaise, weakness -: days(s) Temperature Source: subjective Context: sick contacts Associated Symptoms: chills, rigors, myalgias Treatments Prior to Arrival: none - Related Data Home Medications Medication Instructions Recorded Confirmed Baclofen [Lioresal] 20 mg PO BID@0800,199910/28/20 06/30/23 Bismuth Subsalicylate 1 dose PO DIRECTED PRN 10/28/20 06/30/23 [Pepto-Bismol] Ibuprofen [Motrin Ib] 400 mg PO TID PRN 10/28/20 06/30/23 Loperamide [Imodium] 1 dose PO DIRECTED PRN 10/28/20 06/30/23 Magnesium Hydroxide [Milk of 1 dose PO DIRECTED PRN 10/28/20 06/30/23 Magnesia] Omeprazole 20 mg PO DAILY@0800 10/28/20 06/30/23 Pseudoephedrine [Sudafed] 30 - 60 mg PO Q6H PRN 10/28/20 06/30/23 diphenhydrAMINE [Benadryl] 25 mg PO DIRECTED PRN 10/28/20 06/30/23 Atorvastatin [Lipitor] 10 mg PO HS@199906/30/23 06/30/23 Carbamide Peroxide [Debrox Otic] 1 dose BOTH EARS DIRECTED PRN 06/30/23 06/30/23 Icy Hot Advanced Pain Relief 1 applic TOPICAL DIRECTED PRN 06/30/23 06/30/23 16-11% Cream Metoprolol Succinate (ER) [Toprol 25 mg PO DAILY@0800 06/30/23 06/30/23 XL] QUEtiapine FUMARATE [SEROquel] 25 mg PO BID@08,199906/30/23 06/30/23 Tums E-X 750mg Chew 2 - 4 tab PO DIRECTED PRN 06/30/23 06/30/23 Previous Rx's Medication Instructions Recorded cefUROXime axetiL [Ceftin] 500 mg PO BID #14 tab 07/03/23 Allergies Allergy/AdvReac Type Severity Reaction Status Date / Time No Known Allergies Allergy Verified 06/30/23 14:42 Review of Systems ROS Statement: Those systems with pertinent positive or pertinent negative responses have been documented in the HPI. ROS Other: All systems not noted in ROS Statement are negative. Past Medical History Past Medical History: Unable to Obtain Additional Past Medical History / Comment(s): mentally challenged, cerbral palsy History of Any Multi-Drug Resistant Organisms: Unobtainable Past Surgical History: Unable to Obtain Past Psychological History: Unable to Obtain Smoking Status: Unknown if ever smoked Past Alcohol Use History: Unable to Obtain Past Drug Use History: Unable to Obtain General Exam Limitations: no limitations General appearance: alert, anxious, in distress Head exam: Present: atraumatic, normocephalic, normal inspection Eye exam: Present: normal appearance, PERRL, EOMI. Absent: scleral icterus, conjunctival injection, periorbital swelling ENT exam: Present: normal exam, mucous membranes dry Neck exam: Present: normal inspection. Absent: tenderness, meningismus, lymphadenopathy Respiratory exam: Present: normal lung sounds bilaterally. Absent: respiratory distress, wheezes, rales, rhonchi, stridor Cardiovascular Exam: Present: normal rhythm, tachycardia, normal heart sounds. Absent: systolic murmur, diastolic murmur, rubs, gallop, clicks GI/Abdominal exam: Present: soft, normal bowel sounds. Absent: distended, tenderness, guarding, rebound, rigid Extremities exam: Present: normal inspection, full ROM, normal capillary refill. Absent: tenderness, pedal edema, joint swelling, calf tenderness Back exam: Present: normal inspection Neurological exam: Present: alert, oriented X3, CN II-XII intact Psychiatric exam: Present: normal affect, normal mood Skin exam: Present: warm, dry, intact, normal color. Absent: rash Course Vital Signs 06/30/23 06/30/23 06/30/23 13:34 15:08 18:40 Temperature 100.5 F H 99.8 F H 98.4 F Pulse Rate 123 H 113 H 108 H Respiratory 18 18 18 Rate Blood Pressure 104/85 125/73 99/64 O2 Sat by Pulse 95 95 95 Oximetry 06/30/23 06/30/23 06/30/23 19:55 22:00 23:30 Temperature 98.9 F 102.7 F H Pulse Rate 111 H 111 H 126 H Respiratory 18 18 18 Rate Blood Pressure 130/76 120/88 O2 Sat by Pulse 95 96 96 Oximetry 07/01/23 07/01/23 07/01/23 01:33 02:00 02:35 Temperature 100.2 F H 99.8 F H Pulse Rate 116 H Respiratory 20 Rate Blood Pressure 110/58 O2 Sat by Pulse 95 Oximetry 07/01/23 07/01/23 07/01/23 03:30 06:00 08:59 Temperature 99.1 F Pulse Rate 105 H 114 H 118 H Respiratory 18 18 18 Rate Blood Pressure 112/64 109/57 104/66 O2 Sat by Pulse 95 95 94 L Oximetry 07/01/23 07/01/23 07/01/23 09:26 10:00 11:00 Temperature 97.9 F Pulse Rate 118 H 120 H Respiratory 18 18 Rate Blood Pressure 104/66 108/64 O2 Sat by Pulse 96 94 L Oximetry 07/01/23 07/01/23 07/01/23 12:00 13:00 13:56 Temperature Pulse Rate 116 H 120 H 120 H Respiratory 18 18 18 Rate Blood Pressure 106/63 118/72 118/72 O2 Sat by Pulse 95 94 L 95 Oximetry 07/01/23 07/01/23 07/01/23 14:00 15:00 16:00 Temperature Pulse Rate 122 H 125 H 122 H Respiratory 16 16 18 Rate Blood Pressure 118/72 118/72 106/73 O2 Sat by Pulse 94 L 93 L 94 L Oximetry 07/01/23 07/01/23 07/01/23 17:00 18:23 18:56 Temperature 99.2 F Pulse Rate 117 H 111 H 104 H Respiratory 16 18 18 Rate Blood Pressure 117/72 134/102 O2 Sat by Pulse 94 L 98 98 Oximetry 07/01/23 07/01/23 07/02/23 20:18 23:45 01:38 Temperature 99.6 F 99.2 F Pulse Rate 113 H 93 116 H Respiratory 18 16 16 Rate Blood Pressure 126/81 116/60 114/70 O2 Sat by Pulse 93 L 95 93 L Oximetry 03/02/24 02:35 Temperature Pulse Rate 67 Respiratory 18 Rate Blood Pressure 117/75 O2 Sat by Pulse 94 L Oximetry - Reevaluation(s) Reevaluation #1: 06/30/23 19:33 Medical records reviewed Reevaluation #2: 06/30/23 19:33 Patient has mild improvement in symptoms and heart rate, symptomatic control Reevaluation #3: 06/30/23 19:34 Patient informed of results and questions answered Reevaluation #4: Was pt. sent in by a medical professional or institution ([facility], BUSINESS CONSULT, urgent care, hospital, or senior living...) When possible be specific @ -no Did you speak to anyone other than the patient for history (EMS, parent, family, police, friend...)? What history was obtained from this source @ -no Did you review nursing and triage notes (agree or disagree)? Why? @ -agree Are old charts reviewed (outside hosp., previous admission, EMS record, old EKG, old radiological studies, urgent care reports/EKG's, senior living records)? Report findings @ -yes Differential Diagnosis (chest pain, altered mental status, abdominal pain women, abdominal pain men, vaginal bleeding, weakness, fever, dyspnea, syncope, headache, dizziness, GI bleed, back pain, seizure, CVA, palpatations, mental health, musculoskeletal)? @ -prior EKG interpreted by me (3pts min.). @ -yes X-rays interpreted by me (1pt min.). @ -yes negative for acute disease CT interpreted by me (1pt min.). @ -no U/S interpreted by me (1pt. min.). @ -no What testing was considered but not performed or refused? (CT, X-rays, U/S, l abs)? Why? @ -none What meds were considered but not given or refused? Why? @ -none Did you discuss the management of the patient with other professionals (professionals i.e. [facility], BUSINESS CONSULT, lab, RT, psych nurse, social services analyst, gym supervisor, teacher, public affairs officer, nurse outreach case manager)? Give summary @ -no Was smoking cessation discussed for >3mins.? @ -no Was critical care preformed (if so, how long)? @ -no Were there social determinants of health that impacted care today? How? (Homelessness, low income, unemployed, alcoholism, drug addiction, transportation, low edu. Level, literacy, decrease access to med. care, alf, rehab)? @ -none Was there de-escalation of care discussed even if they declined (Discuss DNR or withdrawal of care, Hospice)? DNR status @ -no What co-morbidities impacted this encounter? (DM, HTN, Smoking, COPD, CAD, Cancer, CVA, ARF, Chemo, Hep., AIDS, mental health diagnosis, sleep apnea, morbid obesity)? @ -none Was patient admitted / discharged? Hospital course, mention meds given and route, prescriptions, significant lab abnormalities, going to OR and other pertinent info. @ - 33 male to the ER for evaluation, patient will be admitted for persistent fever here in the emergency department Admitted Undiagnosed new problem with uncertain prognosis? @ -no Drug Therapy requiring intensive monitoring for toxicity (Heparin, Nitro, Insulin, Cardizem)? @ -no Were any procedures done? @ -no Diagnosis/symptom? @ -Persistent fever rule out bacteremia Acute, or Chronic, or Acute on Chronic? @ -Acute Uncomplicated (without systemic symptoms) or Complicated (systemic symptoms)? @ -Complicated Side effects of treatment? @ -no Exacerbation, Progression, or Severe Exacerbation? @ -exacerbation Poses a threat to life or bodily function? How? (Chest pain, [place], [place], pneumonia, PE, COPD, DKA, ARF, appy, cholecystitis, CVA, Diverticulitis, Homicidal, Suicidal, threat to staff... and all critical care pts) @ -yes yes with fever possible sepsis Reevaluation #5: Differential Fever: Pneumonia, viral URI, endocarditis, myocarditis, pericarditis, otitis, sinusitis, peritonsillar Abscess, retropharyngeal Abscess, epiglottitis, peritonitis, appendicitis, Trina cystitis, diverticulitis, hepatitis, colitis, UTI, PID, TOA, pyelonephritis, prostatitis, epididymitis, meningitis, encephalitis, pulmonary embolism, CVA, thyroid storm, pancreatitis, adrenal crisis, cavernous sinus thrombosis, this is not meant to be an all-inclusive list. - Consultations Consultation #1: Spoke with admitting physician who agrees to admit this patient Medical Decision Making - Medical Decision Making 33 male to the ER for evaluation, patient will be admitted for persistent fever here in the emergency department - Lab Data Result diagrams: 07/03/23 05:55 07/01/23 07:32 Lab Results 06/30/23 06/30/23 06/30/23 Range/Units 14:01 14:01 14:01 WBC 15.5 H (3.8-10.6) k/uL RBC 4.10 L (4.30-5.90) m/uL Hgb 12.2 L (13.0-17.5) gm/dL Hct 37.3 L (39.0-53.0) % MCV 90.9 (80.0-100.0) fL MCH 29.8 (25.0-35.0) pg MCHC 32.7 (31.0-37.0) g/dL RDW 12.6 (11.5-15.5) % Plt Count 482 H (150-450) k/uL MPV 7.9 Neutrophils % 84 % Lymphocytes % 8 % Monocytes % 6 % Eosinophils % 0 % Basophils % 0 % Neutrophils # 13.0 H (1.3-7.7) k/uL Lymphocytes # 1.3 (1.0-4.8) k/uL Monocytes # 0.9 (0-1.0) k/uL Eosinophils # 0.0 (0-0.7) k/uL Basophils # 0.1 (0-0.2) k/uL Sodium 142 (137-145) mmol/L Potassium 5.9 H (3.5-5.1) mmol/L Chloride 103 (98-107) mmol/L Carbon Dioxide 31 H (22-30) mmol/L Anion Gap 8 mmol/L BUN 28 H (9-20) mg/dL Creatinine 1.05 (0.66-1.25) mg/dL Est GFR (CKD-EPI)AfAm >90 (>60 ml/min/1.73 sqM) Est GFR (CKD-EPI)NonAf >90 (>60 ml/min/1.73 sqM) Glucose 106 H (74-99) mg/dL Lactic Ac Sepsis Rflx Plasma Lactic Acid Amando 2.2 H* (0.7-2.0) mmol/L Calcium 9.2 (8.4-10.2) mg/dL Total Bilirubin 0.7 (0.2-1.3) mg/dL AST 27 (17-59) U/L ALT 26 (4-49) U/L Alkaline Phosphatase 104 (38-126) U/L Total Protein 7.5 (6.3-8.2) g/dL Albumin 4.2 (3.5-5.0) g/dL Urine Color Urine Appearance (Clear) Urine pH (5.0-8.0) Ur Specific Kempner (1.001-1.035) Urine Protein (Negative) Urine Glucose (UA) (Negative) Urine Ketones (Negative) Urine Blood (Negative) Urine Nitrite (Negative) Urine Bilirubin (Negative) Urine Urobilinogen (<2.0) mg/dL Ur Leukocyte Esterase (Negative) Urine RBC (0-5) /hpf Urine WBC (0-5) /hpf Urine WBC Clumps (None) /hpf Urine Bacteria (None) /hpf Influenza Type A (PCR) (Not Detectd) Influenza Type B (PCR) (Not Detectd) RSV (PCR) (Not Detectd) SARS-CoV-2 (PCR) (Not Detectd) Group A Strep (PCR) (Not Detectd) 06/30/23 06/30/23 06/30/23 Range/Units 14:01 15:07 15:10 WBC (3.8-10.6) k/uL RBC (4.30-5.90) m/uL Hgb (13.0-17.5) gm/dL Hct (39.0-53.0) % MCV (80.0-100.0) fL MCH (25.0-35.0) pg MCHC (31.0-37.0) g/dL RDW (11.5-15.5) % Plt Count (150-450) k/uL MPV Neutrophils % % Lymphocytes % % Monocytes % % Eosinophils % % Basophils % % Neutrophils # (1.3-7.7) k/uL Lymphocytes # (1.0-4.8) k/uL Monocytes # (0-1.0) k/uL Eosinophils # (0-0.7) k/uL Basophils # (0-0.2) k/uL Sodium (137-145) mmol/L Potassium (3.5-5.1) mmol/L Chloride (98-107) mmol/L Carbon Dioxide (22-30) mmol/L Anion Gap mmol/L BUN (9-20) mg/dL Creatinine (0.66-1.25) mg/dL Est GFR (CKD-EPI)AfAm (>60 ml/min/1.73 sqM) Est GFR (CKD-EPI)NonAf (>60 ml/min/1.73 sqM) Glucose (74-99) mg/dL Lactic Ac Sepsis Rflx Y Plasma Lactic Acid Amando (0.7-2.0) mmol/L Calcium (8.4-10.2) mg/dL Total Bilirubin (0.2-1.3) mg/dL AST (17-59) U/L ALT (4-49) U/L Alkaline Phosphatase (38-126) U/L Total Protein (6.3-8.2) g/dL Albumin (3.5-5.0) g/dL Urine Color Urine Appearance (Clear) Urine pH (5.0-8.0) Ur Specific Kempner (1.001-1.035) Urine Protein (Negative) Urine Glucose (UA) (Negative) Urine Ketones (Negative) Urine Blood (Negative) Urine Nitrite (Negative) Urine Bilirubin (Negative) Urine Urobilinogen (<2.0) mg/dL Ur Leukocyte Esterase (Negative) Urine RBC (0-5) /hpf Urine WBC (0-5) /hpf Urine WBC Clumps (None) /hpf Urine Bacteria (None) /hpf Influenza Type A (PCR) Not Detected (Not Detectd) Influenza Type B (PCR) Not Detected (Not Detectd) RSV (PCR) Not Detected (Not Detectd) SARS-CoV-2 (PCR) Not Detected (Not Detectd) Group A Strep (PCR) NOT DETECTED (Not Detectd) 06/30/23 Range/Units 15:58 WBC (3.8-10.6) k/uL RBC (4.30-5.90) m/uL Hgb (13.0-17.5) gm/dL Hct (39.0-53.0) % MCV (80.0-100.0) fL MCH (25.0-35.0) pg MCHC (31.0-37.0) g/dL RDW (11.5-15.5) % Plt Count (150-450) k/uL MPV Neutrophils % % Lymphocytes % % Monocytes % % Eosinophils % % Basophils % % Neutrophils # (1.3-7.7) k/uL Lymphocytes # (1.0-4.8) k/uL Monocytes # (0-1.0) k/uL Eosinophils # (0-0.7) k/uL Basophils # (0-0.2) k/uL Sodium (137-145) mmol/L Potassium (3.5-5.1) mmol/L Chloride (98-107) mmol/L Carbon Dioxide (22-30) mmol/L Anion Gap mmol/L BUN (9-20) mg/dL Creatinine (0.66-1.25) mg/dL Est GFR (CKD-EPI)AfAm (>60 ml/min/1.73 sqM) Est GFR (CKD-EPI)NonAf (>60 ml/min/1.73 sqM) Glucose (74-99) mg/dL Lactic Ac Sepsis Rflx Plasma Lactic Acid Amando (0.7-2.0) mmol/L Calcium (8.4-10.2) mg/dL Total Bilirubin (0.2-1.3) mg/dL AST (17-59) U/L ALT (4-49) U/L Alkaline Phosphatase (38-126) U/L Total Protein (6.3-8.2) g/dL Albumin (3.5-5.0) g/dL Urine Color Colorless Urine Appearance Cloudy (Clear) Urine pH 6.0 (5.0-8.0) Ur Specific Kempner 1.019 (1.001-1.035) Urine Protein 1+ H (Negative) Urine Glucose (UA) 1+ H (Negative) Urine Ketones Negative (Negative) Urine Blood Moderate H (Negative) Urine Nitrite Positive (Negative) Urine Bilirubin Negative (Negative) Urine Urobilinogen <2.0 (<2.0) mg/dL Ur Leukocyte Esterase Moderate H (Negative) Urine RBC >182 H (0-5) /hpf Urine WBC 136 H (0-5) /hpf Urine WBC Clumps Occasional H (None) /hpf Urine Bacteria Occasional H (None) /hpf Influenza Type A (PCR) (Not Detectd) Influenza Type B (PCR) (Not Detectd) RSV (PCR) (Not Detectd) SARS-CoV-2 (PCR) (Not Detectd) Group A Strep (PCR) (Not Detectd) Disposition Clinical Impression: UTI (urinary tract infection), Fever, Altered mental status Disposition: ADMITTED IP TO THIS HOSP Is patient prescribed a controlled substance at d/c from ED?: No Time of Disposition: 18:00
[2023-06-30] MEDS: SODIUM CHLORIDE 0.9% 1,000 ML IV STA ×2 (14:02)
[2023-06-30] MEDS: SODIUM CHLORIDE 0.9% 500 ML 500 ML IV STA (14:03)
[2023-06-30] MEDS: ACETAMINOPHEN IV (For NPO) 600 MG in EMPTY BAG 1 BAG IVPB STA (14:16)
[2023-06-30 14:26] LABS: Basophils # (A) 0.1 k/uL (0-0.2); Basophils % (A) 0 %; Eosinophils % (A) 0 %; HCT 37.3 % (39.0-53.0); HGB 12.2 gm/dL (13.0-17.5); Lymphocytes # (A) 1.3 k/uL (1.0-4.8); Lymphocytes % (A) 8 %; MCH 29.8 pg (25.0-35.0); MCHC 32.7 g/dL (31.0-37.0); MCV 90.9 fL (80.0-100.0); Mean Platelet Volume 7.9; Monocytes # (A) 0.9 k/uL (0-1.0); Monocytes % (A) 6 %; Neutrophils % (A) 84 %; Platelet Count 482 k/uL (150-450); RDW 12.6 % (11.5-15.5); WBC 15.5 k/uL (3.8-10.6)
[2023-06-30 14:38] LABS: ALT 26 U/L (4-49); African American GFR (CKD) >90 (>60 ml/min/1.73 sqM); Albumin 4.2 g/dL (3.5-5.0); Anion Gap 8 mmol/L; Blood Urea Nitrogen 28 mg/dL (9-20); Calcium 9.2 mg/dL (8.4-10.2); Carbon Dioxide 31 mmol/L (22-30); Chloride 103 mmol/L (98-107); Glucose 106 mg/dL (74-99); Non-African American GFR(CKD) >90 (>60 ml/min/1.73 sqM); Sodium 142 mmol/L (137-145); Total Bilirubin 0.7 mg/dL (0.2-1.3); Total Protein 7.5 g/dL (6.3-8.2)
[2023-06-30 14:40] LABS: AST 27 U/L (17-59); Alkaline Phosphatase 104 U/L (38-126); Potassium 5.9 mmol/L (3.5-5.1)
[2023-06-30] MEDS: IBUPROFEN IV 400 MG in SODIUM CHLORIDE 0.9% 100 ML IV ONE (14:40)
--- NOTE | 2023-06-30 15:21 | XR ---
EXAMINATION TYPE: XR chest 1V portable DATE OF EXAM: 06/30/2023 3:09 PM CLINICAL INDICATION:Male, 33 years old with history of weak; [facility] COMPARISON: Chest radiographs from 06/13/2023 TECHNIQUE: XR chest 1V portable Frontal view of the chest. FINDINGS: Lungs/Pleura: There is no evidence of pleural effusion, focal consolidation, or pneumothorax. Pulmonary vascularity: Unremarkable. Heart/mediastinum: Cardiomediastinal silhouette is unremarkable. Air and Opacity projects over the he art.Represent a hiatal hernia. Musculoskeletal: No acute osseous pathology. Severe scoliosis changes of the spine with dextro scolio tic curvature of the thoracic and levoscoliotic curvature of the lumbar spine. Other findings: None IMPRESSION: Similar suspected hiatal hernia with severe scoliosis changes.
[2023-06-30 16:25] LABS: Appearance,Urine Cloudy (Clear); Bacteria,Urine Occasional /hpf; Bilirubin,Urine Negative (Negative); Blood,Urine Moderate (Negative); Color,Urine Colorless; Glucose,Urine (UA) 1+ (Negative); Ketones,Urine Negative (Negative); Leukocyte Esterase,Urine Moderate (Negative); Nitrite,Urine Positive (Negative); Protein,Urine 1+ (Negative); RBC,Urine >182 /hpf (0-5); Specific Gravity,Urine 1.019 (1.001-1.035); Urobilinogen,Urine <2.0 mg/dL (<2.0); WBC,Urine 136 /hpf (0-5)
[2023-06-30] MEDS ORDERED: MORPHINE SULFATE 4 MG/ML SYRINGE IV PRN (18:01)
[2023-06-30] MEDS ORDERED: NALOXONE 0.4 MG/ML 1 ML VIAL IV PRN (18:01)
[2023-06-30] MEDS ORDERED: ONDANSETRON 4 MG/2 ML VIAL IVP PRN (18:01)
[2023-06-30] MEDS: SODIUM CHLORIDE 0.9% 1,000 ML IV SCH (18:29)
[2023-07-01] MEDS: ACETAMINOPHEN TAB 500 MG TAB PO PRN (00:27)
[2023-07-01 08:12] LABS: Basophils % (A) 0 %; Eosinophils # (A) 0.1 k/uL (0-0.7); Eosinophils % (A) 0 %; HCT 33.9 % (39.0-53.0); HGB 11.1 gm/dL (13.0-17.5); Lymphocytes # (A) 1.6 k/uL (1.0-4.8); Lymphocytes % (A) 10 %; MCH 29.7 pg (25.0-35.0); MCHC 32.8 g/dL (31.0-37.0); MCV 90.4 fL (80.0-100.0); Mean Platelet Volume 8.1; Monocytes # (A) 1.1 k/uL (0-1.0); Monocytes % (A) 7 %; Neutrophils # (A) 13.5 k/uL (1.3-7.7); Neutrophils % (A) 82 %; Platelet Count 356 k/uL (150-450); RBC 3.76 m/uL (4.30-5.90); RDW 12.3 % (11.5-15.5); WBC 16.5 k/uL (3.8-10.6)
[2023-07-01 08:17] LABS: ALT 24 U/L (4-49); AST 22 U/L (17-59); African American GFR (CKD) >90 (>60 ml/min/1.73 sqM); Albumin 3.6 g/dL (3.5-5.0); Albumin/Globulin Ratio 1.2; Alkaline Phosphatase 103 U/L (38-126); Anion Gap 7 mmol/L; Blood Urea Nitrogen 16 mg/dL (9-20); Calcium 9.1 mg/dL (8.4-10.2); Carbon Dioxide 26 mmol/L (22-30); Chloride 105 mmol/L (98-107); Globulin 2.9 g/dL; Glucose 99 mg/dL (74-99); Magnesium 1.7 mg/dL (1.6-2.3); Non-African American GFR(CKD) >90 (>60 ml/min/1.73 sqM); Phosphorus 3.7 mg/dL (2.5-4.5); Potassium 5.1 mmol/L (3.5-5.1); Sodium 138 mmol/L (137-145); Total Bilirubin 0.5 mg/dL (0.2-1.3); Total Protein 6.5 g/dL (6.3-8.2)
[2023-07-01] MEDS: PANTOPRAZOLE 40 MG/10 ML VIAL IV SCH (08:47)
[2023-07-01] MEDS ORDERED: IBUPROFEN 400 MG TAB PO PRN (12:35)
[2023-07-01] MEDS: METOPROLOL SUCCINATE (ER) 25 MG TAB.ER.24H PO SCH (13:57)
[2023-07-01] MEDS: ENOXAPARIN 40 MG/0.4 ML SYRINGE SQ SCH (17:41)
--- NOTE | 2023-07-01 18:31 | P.HPIM ---
History of Present Illness H&P Date: 07/01/23 Chief Complaint: Fever This is a 33-year-old patient, follows with visiting physicians Dr. Gunter. Patient has underlying cerebral palsy. Patient himself not able to furnish any history. EMS report: EMS was called out because of patient having fever. Increased heart rate. Fevers been present for about a week. Patient has all 4 limbs contractions. Patient is alert to self and place. Fever recorded at 100.1. Patient has been reported to be restless. Patient denied any back pain or shortness of breath. Patient has an external catheter in the ER. Patient is found to have a UTI started on IV ceftriaxone. Review of systems: Patient cannot give history Social history: Had a half-way. Physical examination: VITAL SIGNS: 102.7, 126, 18, 110 x 58, 95% room air upon presentation GENERAL: BMI 16.5, reclining in bed, loss of muscle mass awake. EYES: Pupils equal. Conjunctiva rosa elena l. HEENT: External appearance of nose and ears normal, oral cavity grossly normal. NECK: JVD not raised; masses not palpable. HEART: First and second heart sounds are normal; no edema. LUNGS: Respiratory rate normal; clear to auscultation. ABDOMEN: Soft, nontender, liver spleen not palpable, no masses palpable. External catheter to suction PSYCH: Unable to assess. Patient does not appear to be in any distress l. MUSCULOSKELETAL: Contracture of all 4 limbs. Loss of muscle mass. NEUROLOGICAL: Patient may attempt to speak a word or 2. All 4 limbs contracted. LYMPHATICS: No lymph nodes palpable in the axilla and neck INVESTIGATIONS, reviewed in the clinical context: July 01, 2023: White count 16.5 hemoglobin 11.1 platelets 356 potassium 5.1 BUN 16 creatinine 0.77 lactic acid 0.8 UA: Nitrite positive. Leukoesterase moderate. WBC 136. Influenza type A, type B, RSV, COVID-19: Group A strep: Not detected June: White count 15.5 hemoglobin 12.2 platelets 482 potassium 5.9 BUN 28 creatinine 1.05 lactic acid 2.2 Chest x-ray film personally reviewed by me-no obvious infiltrate. Severe scoliosis. Assessment plan: -Acute UTI with cystitis causing sepsis, POA IV ceftriaxone. IV fluids. 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 Past Medical History Past Medical History: Unable to Obtain Additional Past Medical History / Comment(s): mentally challenged, cerbral palsy History of Any Multi-Drug Resistant Organisms: Unobtainable Past Surgical History: Unable to Obtain Past Psychological History: Unable to Obtain Smoking Status: Unknown if ever smoked Past Alcohol Use History: Unable to Obtain Past Drug Use History: Unable to Obtain Medications and Allergies Home Medications Medication Instructions Recorded Confirmed Type Baclofen [Lioresal] 20 mg PO BID@0800,199910/28/20 06/30/23 History Bismuth Subsalicylate 1 dose PO DIRECTED PRN 10/28/20 06/30/23 History [Pepto-Bismol] Ibuprofen [Motrin Ib] 400 mg PO TID PRN 10/28/20 06/30/23 History Loperamide [Imodium] 1 dose PO DIRECTED PRN 10/28/20 06/30/23 History Magnesium Hydroxide [Milk of 1 dose PO DIRECTED PRN 10/28/20 06/30/23 History Magnesia] Omeprazole 20 mg PO DAILY@0800 10/28/20 06/30/23 History Pseudoephedrine [Sudafed] 30 - 60 mg PO Q6H PRN 10/28/20 06/30/23 History diphenhydrAMINE [Benadryl] 25 mg PO DIRECTED PRN 10/28/20 06/30/23 History Atorvastatin [Lipitor] 10 mg PO HS@199906/30/23 06/30/23 History Carbamide Peroxide [Debrox Otic] 1 dose BOTH EARS DIRECTED PRN 06/30/23 06/30/23 History Icy Hot Advanced Pain Relief 1 applic TOPICAL DIRECTED PRN 06/30/23 06/30/23 History 16-11% Cream Metoprolol Succinate (ER) [Toprol 25 mg PO DAILY@0800 06/30/23 06/30/23 History Xl] QUEtiapine FUMARATE [SEROquel] 25 mg PO BID@08,199906/30/23 06/30/23 History Tums E-X 750mg Chew 2 - 4 tab PO DIRECTED PRN 06/30/23 06/30/23 History hydroCHLOROthiazide [Hydrodiuril] 25 mg PO DAILY@79906/30/23 06/30/23 History lisinopriL [Zestril] 40 mg PO DAILY@79906/30/23 06/30/23 History Allergies Allergy/AdvReac Type Severity Reaction Status Date / Time No Known Allergies Allergy Verified 06/30/23 14:42 Physical Exam Vitals: Vital Signs Temp Pulse Resp BP Pulse Ox 07/01/23 09:26 97.9 F 07/01/23 08:59 118 H 18 104/66 94 L 07/01/23 06:00 114 H 18 109/57 95 07/01/23 03:30 99.1 F 105 H 18 112/64 95 07/01/23 02:35 99.8 F H 07/01/23 02:00 116 H 20 110/58 95 07/01/23 01:33 100.2 F H 06/30/23 23:30 102.7 F H 126 H 18 96 06/30/23 22:00 111 H 18 120/88 96 06/30/23 19:55 98.9 F 111 H 18 130/76 95 06/30/23 18:40 98.4 F 108 H 18 99/64 95 06/30/23 15:08 99.8 F H 113 H 18 125/73 95 06/30/23 13:34 100.5 F H 123 H 18 104/85 95 Results CBC & Chem 7: 07/01/23 07:32 07/01/23 07:32 Labs: Abnormal Lab Results - Last 24 Hours (Table) 06/30/23 06/30/23 06/30/23 Range/Units 14:01 14:01 14:01 WBC 15.5 H (3.8-10.6) k/uL RBC 4.10 L (4.30-5.90) m/uL Hgb 12.2 L (13.0-17.5) gm/dL Hct 37.3 L (39.0-53.0) % Plt Count 482 H (150-450) k/uL Neutrophils # 13.0 H (1.3-7.7) k/uL Monocytes # (0-1.0) k/uL Potassium 5.9 H (3.5-5.1) mmol/L Carbon Dioxide 31 H (22-30) mmol/L BUN 28 H (9-20) mg/dL Glucose 106 H (74-99) mg/dL Plasma Lactic Acid Amando 2.2 H* (0.7-2.0) mmol/L Urine Protein (Negative) Urine Glucose (UA) (Negative) Urine Blood (Negative) Ur Leukocyte Esterase (Negative) Urine RBC (0-5) /hpf Urine WBC (0-5) /hpf Urine WBC Clumps (None) /hpf Urine Bacteria (None) /hpf 06/30/23 07/01/23 Range/Units 15:58 07:32 WBC 16.5 H (3.8-10.6) k/uL RBC 3.76 L (4.30-5.90) m/uL Hgb 11.1 L (13.0-17.5) gm/dL Hct 33.9 L (39.0-53.0) % Plt Count (150-450) k/uL Neutrophils # 13.5 H (1.3-7.7) k/uL Monocytes # 1.1 H (0-1.0) k/uL Potassium (3.5-5.1) mmol/L Carbon Dioxide (22-30) mmol/L BUN (9-20) mg/dL Glucose (74-99) mg/dL Plasma Lactic Acid Amando (0.7-2.0) mmol/L Urine Protein 1+ H (Negative) Urine Glucose (UA) 1+ H (Negative) Urine Blood Moderate H (Negative) Ur Leukocyte Esterase Moderate H (Negative) Urine RBC >182 H (0-5) /hpf Urine WBC 136 H (0-5) /hpf Urine WBC Clumps Occasional H (None) /hpf Urine Bacteria Occasional H (None) /hpf
[2023-07-01] MEDS: LACTATED RINGERS 1,000 ML IV SCH (18:55)
[2023-07-01] MEDS: ATORVASTATIN 10 MG TAB PO SCH (20:16)
[2023-07-01] MEDS: QUEtiapine 25 MG TAB PO SCH (20:16)
[2023-07-01] MEDS: BACLOFEN 10 MG TAB PO SCH (20:17)
[2023-07-02] MEDS: PANTOPRAZOLE 40 MG TABLET PO SCH (06:40)
[2023-07-02 12:25] VITALS: BMI 16.5
--- NOTE | 2023-07-02 14:05 | P.PN ---
Progress Note - Text Progress Note Date: 07/02/23 Chief Complaint: Fever This is a 33-year-old patient, follows with visiting physicians Dr. Gunter. Patient has underlying cerebral palsy. Patient himself not able to furnish any history. EMS report: EMS was called out because of patient having fever. Increased heart rate. Fevers been present for about a week. Patient has all 4 limbs contractions. Patient is alert to self and place. Fever recorded at 100.1. Patient has been reported to be restless. Patient denied any back pain or shortness of breath. Patient has an external catheter in the ER. Patient is found to have a UTI started on IV ceftriaxone. July 01: Ate about 50% of his breakfast. On external catheter suction. Urine slightly concentrated but clear. Patient appears comfortable. IV ceftriaxone. Patient does attempt to speak slowly. Active Medications Acetaminophen (Acetaminophen Tab 500 Mg Tab) 500 mg PO Q6HR PRN PRN Reason: Fever and/ or Pain Last Admin: 07/01/23 00:27 Dose: 500 mg Atorvastatin Calcium (Atorvastatin 10 Mg Tab) 10 mg PO HS@1999 [facility] Last Admin: 07/01/23 20:16 Dose: 10 mg Baclofen (Baclofen 10 Mg Tab) 20 mg PO BID@ [facility] Last Admin: 07/02/23 09:14 Dose: 20 mg Ceftriaxone Sodium 2 gm/ (Sodium Chloride) 50 mls @ 100 mls/hr IVPB Q24H [facility]; Protocol Last Admin: 07/01/23 18:18 Dose: 100 mls/hr Lactated Ringer's (Lactated Ringers) 1,000 mls @ 130 mls/hr IV .[id number] [facility] Last Admin: 07/02/23 11:39 Dose: 130 mls/hr Ibuprofen (Ibuprofen 400 Mg Tab) 400 mg PO TID PRN PRN Reason: Pain Metoprolol Succinate (Metoprolol Succinate (Er) 25 Mg Tab.Er.24h) 25 mg PO DAILY@0800 [facility] Last Admin: 07/02/23 09:14 Dose: 25 mg Naloxone HCl (Naloxone 0.4 Mg/Ml 1 Ml Vial) 0.2 mg IV Q2M PRN PRN Reason: Opioid Reversal Ondansetron HCl (Ondansetron 4 Mg/2 Ml Vial) 4 mg IVP Q8HR PRN PRN Reason: Nausea And Vomiting Pantoprazole Sodium (Pantoprazole 40 Mg Tablet) 40 mg PO 0730 [facility] Last Admin: 07/02/23 06:40 Dose: 40 mg Quetiapine Fumarate (Quetiapine 25 Mg Tab) 25 mg PO BID@0800,1999 [facility] Last Admin: 07/02/23 09:14 Dose: 25 mg Social history: Had a snf. Physical examination: VITAL SIGNS: 98.4, 65, 18, 99 x 74, 94% room air GENERAL: BMI 16.5, reclining in bed, loss of muscle mass awake. Comfortable EYES: Pupils equal. Conjunctiva rosa elena l. HEENT: External appearance of nose and ears normal, oral cavity grossly normal. NECK: JVD not raised; masses not palpable. HEART: First and second heart sounds are normal; no edema. LUNGS: Respiratory rate normal; clear to auscultation. ABDOMEN: Soft, nontender, liver spleen not palpable, no masses palpable. External catheter to suction PSYCH: Unable to assess. Patient does not appear to be in any distress l. MUSCULOSKELETAL: Contracture of all 4 limbs. Loss of muscle mass. NEUROLOGICAL: Patient may attempt to speak a word or 2. All 4 limbs contracted. INVESTIGATIONS, reviewed in the clinical context: July 01, 2023: White count 16.5 hemoglobin 11.1 platelets 356 potassium 5.1 BUN 16 creatinine 0.77 lactic acid 0.8 UA: Nitrite positive. Leukoesterase moderate. WBC 136. Influenza type A, type B, RSV, COVID-19: Group A strep: Not detected June: White count 15.5 hemoglobin 12.2 platelets 482 potassium 5.9 BUN 28 creatinine 1.05 lactic acid 2.2 Chest x-ray film personally reviewed by me-no obvious infiltrate. Severe scoliosis. Assessment plan: -Acute UTI with cystitis causing sepsis, POA IV ceftriaxone. IV fluids. 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 Continue IV ceftriaxone. I cannot see urine culture. Will repeat the same. Past Medical History Past Medical History: Unable to Obtain Additional Past Medical History / Comment(s): mentally challenged, cerbral palsy History of Any Multi-Drug Resistant Organisms: Unobtainable Past Surgical History: Unable to Obtain Past Psychological History: Unable to Obtain Smoking Status: Unknown if ever smoked Past Alcohol Use History: Unable to Obtain Past Drug Use History: Unable to Obtain
[2023-07-02 21:27] LABS: Appearance,Urine Clear (Clear); Bilirubin,Urine Negative (Negative); Blood,Urine Negative (Negative); Color,Urine Colorless; Glucose,Urine (UA) 1+ (Negative); Ketones,Urine Negative (Negative); Leukocyte Esterase,Urine Negative (Negative); Nitrite,Urine Negative (Negative); PH, Urine 7.5 (5.0-8.0); Protein,Urine Negative (Negative); Specific Gravity,Urine 1.011 (1.001-1.035); Urobilinogen,Urine <2.0 mg/dL (<2.0)
[2023-07-03 06:35] LABS: Basophils % (A) 0 %; Eosinophils # (A) 0.2 k/uL (0-0.7); Eosinophils % (A) 2 %; HCT 31.2 % (39.0-53.0); HGB 10.1 gm/dL (13.0-17.5); Lymphocytes % (A) 19 %; MCH 29.2 pg (25.0-35.0); MCHC 32.4 g/dL (31.0-37.0); Mean Platelet Volume 7.7; Monocytes # (A) 0.6 k/uL (0-1.0); Monocytes % (A) 6 %; Neutrophils # (A) 7.3 k/uL (1.3-7.7); Neutrophils % (A) 71 %; Platelet Count 384 k/uL (150-450); RBC 3.47 m/uL (4.30-5.90); RDW 12.4 % (11.5-15.5); WBC 10.3 k/uL (3.8-10.6)
[2023-07-03 09:03] VITALS: BP 100/62; PULSE 97; RESP 19; TEMP 98.1
--- NOTE | 2023-07-03 16:35 | P.DS ---
Providers Date of admission: 06/30/23 18:03 Expected date of discharge: 07/03/23 Attending physician: Saúl Houser Primary care physician: Javon Gunter MD Hospital Course: Chief Complaint: Fever This is a 33-year-old patient, follows with visiting physicians Dr. Gunter. Patient has underlying cerebral palsy. Patient himself not able to furnish any history. EMS report: EMS was called out because of patient having fever. Increased heart rate. Fevers been present for about a week. Patient has all 4 limbs contractions. Patient is alert to self and place. Fever recorded at 100.1. Patient has been reported to be restless. Patient denied any back pain or shortness of breath. Patient has an external catheter in the ER. Patient is found to have a UTI started on IV ceftriaxone. July 01: Ate about 50% of his breakfast. On external catheter suction. Urine slightly concentrated but clear. Patient appears comfortable. IV ceftriaxone. Patient does attempt to speak slowly. July 02: Eating well. No fever. Urine clear. Will discharge on 7 days of Ceftin. Social history: Had a snf. Physical examination: VITAL SIGNS: 98.1, 97, 19, 100/62, 93% room air GENERAL: BMI 16.5, reclining in bed, loss of muscle mass awake. Comfortable EYES: Pupils equal. Conjunctiva rosa elena l. HEENT: External appearance of nose and ears normal, oral cavity grossly normal. NECK: JVD not raised; masses not palpable. HEART: First and second heart sounds are normal; no edema. LUNGS: Respiratory rate normal; clear to auscultation. ABDOMEN: Soft, nontender, liver spleen not palpable, no masses palpable. External catheter to suction PSYCH: Unable to assess. Patient does not appear to be in any distress l. MUSCULOSKELETAL: Contracture of all 4 limbs. Loss of muscle mass. NEUROLOGICAL: Patient may attempt to speak a word or 2. All 4 limbs contracted. INVESTIGATIONS, reviewed in the clinical context: July 02: White count 10.3 hemoglobin 10.1 July 01, 2023: White count 16.5 hemoglobin 11.1 platelets 356 potassium 5.1 BUN 16 creatinine 0.77 lactic acid 0.8 UA: Nitrite positive. Leukoesterase moderate. WBC 136. Influenza type A, type B, RSV, COVID-19: Group A strep: Not detected June: White count 15.5 hemoglobin 12.2 platelets 482 potassium 5.9 BUN 28 creatinine 1.05 lactic acid 2.2 Chest x-ray film personally reviewed by me-no obvious infiltrate. Severe scoliosis. Assessment plan: -Acute UTI with cystitis causing sepsis, POA IV ceftriaxone. IV fluids. Ceftin 5 mg twice daily for 7 more days -Severe sepsis secondary to acute UTI with cystitis: Resolved IV antibiotics, IV fluids -Lactic acidosis on presentation from sepsis -Chronic cerebral palsy -Chronic quadriparesis from cerebral palsy, patient nonambulatory -Chronic dysarthria, patient may attempt to speak about -Chronic muscle spasms Baclofen -Essential hypertension Toprol-XL, Zestril -GERD Omeprazole -Hyperlipidemia Lipitor -Severe protein calorie malnutrition Consult dietitian -Full code. Disposition: long term Past Medical History Past Medical History: Unable to Obtain Additional Past Medical History / Comment(s): mentally challenged, cerbral palsy History of Any Multi-Drug Resistant Organisms: Unobtainable Past Surgical History: Unable to Obtain Past Psychological History: Unable to Obtain Smoking Status: Unknown if ever smoked Past Alcohol Use History: Unable to Obtain Past Drug Use History: Unable to Obtain Plan - Discharge Summary Discharge Rx Participant: Yes New Discharge Prescriptions: New cefUROXime axetiL [Ceftin] 500 mg PO BID #14 tab Continue Pseudoephedrine [Sudafed] 30 - 60 mg PO Q6H PRN PRN Reason: Cold Symptoms Loperamide [Imodium] 1 dose PO DIRECTED PRN PRN Reason: Loose Stool diphenhydrAMINE [Benadryl] 25 mg PO DIRECTED PRN PRN Reason: Allergy Symptoms Magnesium Hydroxide [Milk of Magnesia] 1 dose PO DIRECTED PRN PRN Reason: Constipation Omeprazole 20 mg PO DAILY@0800 Baclofen [Lioresal] 20 mg PO BID@0800,2000 Icy Hot Advanced Pain Relief 16-11% Cream 1 applic TOPICAL DIRECTED PRN PRN Reason: Pain Carbamide Peroxide [Debrox Otic] 1 dose BOTH EARS DIRECTED PRN PRN Reason: EXCESSIVE EAR WAX Atorvastatin [Lipitor] 10 mg PO HS@2000 Metoprolol Succinate (ER) [Toprol XL] 25 mg PO DAILY@0800 Bismuth Subsalicylate [Pepto-Bismol] 1 dose PO DIRECTED PRN PRN Reason: Vomiting/Nausea Ibuprofen [Motrin Ib] 400 mg PO TID PRN PRN Reason: Pain QUEtiapine FUMARATE [SEROquel] 25 mg PO BID@799,1999 Tums E-X 750mg Chew 2 - 4 tab PO DIRECTED PRN PRN Reason: Heartburn Discontinued lisinopriL [Zestril] 40 mg PO DAILY@0800 hydroCHLOROthiazide [Hydrodiuril] 25 mg PO DAILY@0800 Discharge Medication List Baclofen [Lioresal] 20 mg PO BID@799,199910/28/20 [History] Bismuth Subsalicylate [Pepto-Bismol] 1 dose PO DIRECTED PRN 10/28/20 [History] Ibuprofen [Motrin Ib] 400 mg PO TID PRN 10/28/20 [History] Loperamide [Imodium] 1 dose PO DIRECTED PRN 10/28/20 [History] Magnesium Hydroxide [Milk of Magnesia] 1 dose PO DIRECTED PRN 10/28/20 [History] Omeprazole 20 mg PO DAILY@0810/28/20 [History] Pseudoephedrine [Sudafed] 30 - 60 mg PO Q6H PRN 10/28/20 [History] diphenhydrAMINE [Benadryl] 25 mg PO DIRECTED PRN 10/28/20 [History] Atorvastatin [Lipitor] 10 mg PO HS@199906/30/23 [History] Carbamide Peroxide [Debrox Otic] 1 dose BOTH EARS DIRECTED PRN 06/30/23 [History] Icy Hot Advanced Pain Relief 16-11% Cream 1 applic TOPICAL DIRECTED PRN 06/30/23 [History] Metoprolol Succinate (ER) [Toprol XL] 25 mg PO DAILY@0806/30/23 [History] QUEtiapine FUMARATE [SEROquel] 25 mg PO BID@799,199906/30/23 [History] Tums E-X 750mg Chew 2 - 4 tab PO DIRECTED PRN 06/30/23 [History] cefUROXime axetiL [Ceftin] 500 mg PO BID #14 tab 07/03/23 [Rx] Follow up Appointment(s)/Referral(s): Javon Gunter MD [Primary Care Provider] - 1-2 days Patient Instructions/Handouts: Urinary Tract Infection in Men (DC) Discharge Disposition: TRANSFER TO SNF/ECF
== END 2023-07-03 14:56 | disposition home or self-care (01) | DRG 871 ==
LOC: EC 13:28 → 4SSUR 18:03
PROVIDERS: ADMIT Hospitalist; ATTEND Hospitalist
DX: A41.9 Sepsis, unspecified organism (principal); E43 Unspecified severe protein-calorie malnutrition; N30.00 Acute cystitis without hematuria; Z68.1 Body mass index [BMI] 19.9 or less, adult; E87.20 Acidosis, unspecified; R65.20 Severe sepsis without septic shock; M41.86 Other forms of scoliosis, lumbar region; M41.84 Other forms of scoliosis, thoracic region; G80.8 Other cerebral palsy; I10 Essential (primary) hypertension; F79 Unspecified intellectual disabilities; R47.1 Dysarthria and anarthria; M62.838 Other muscle spasm; K21.9 Gastro-esophageal reflux disease without esophagitis; E78.5 Hyperlipidemia, unspecified; Z79.899 Other long term (current) drug therapy
CPT/HCPCS: 36415; 71045; 80053; 81001; 81003; 83605; 83735; 84100; 85025; 87040; 87636; 87651; 96361; 96365; 96366; 96367; 96368; 96372; 99285

== ENCOUNTER 2023-09-10 13:48 | Emergency (ER) | payer MEDICARE, OTHER ==
[2023-09-10] MEDS: ACETAMINOPHEN TAB 500 MG TAB PO STA (14:53)
[2023-09-10] MEDS: SODIUM CHLORIDE 0.9% 500 ML 500 ML IV STA (14:56)
[2023-09-10 15:06] LABS: Basophils # (A) 0.1 k/uL (0-0.2); Basophils % (A) 1 %; Eosinophils % (A) 0 %; HCT 47.3 % (39.0-53.0); HGB 15.1 gm/dL (13.0-17.5); Lymphocytes # (A) 1.6 k/uL (1.0-4.8); Lymphocytes % (A) 16 %; MCH 27.3 pg (25.0-35.0); MCHC 31.8 g/dL (31.0-37.0); MCV 85.6 fL (80.0-100.0); Mean Platelet Volume 8.6; Monocytes # (A) 0.6 k/uL (0-1.0); Monocytes % (A) 6 %; Neutrophils # (A) 7.8 k/uL (1.3-7.7); Neutrophils % (A) 76 %; Platelet Count 245 k/uL (150-450); RBC 5.53 m/uL (4.30-5.90); RDW 13.2 % (11.5-15.5); WBC 10.2 k/uL (3.8-10.6)
[2023-09-10 15:17] LABS: ALT 23 U/L (4-49); AST 22 U/L (17-59); African American GFR (CKD) >90 (>60 ml/min/1.73 sqM); Albumin 4.7 g/dL (3.5-5.0); Alcohol <10 mg/dL; Alkaline Phosphatase 89 U/L (38-126); Anion Gap 12 mmol/L; Blood Urea Nitrogen 23 mg/dL (9-20); Calcium 9.5 mg/dL (8.4-10.2); Carbon Dioxide 23 mmol/L (22-30); Chloride 107 mmol/L (98-107); Glucose 100 mg/dL (74-99); Non-African American GFR(CKD) >90 (>60 ml/min/1.73 sqM); Potassium 4.2 mmol/L (3.5-5.1); Sodium 142 mmol/L (137-145); Total Bilirubin 0.8 mg/dL (0.2-1.3); Total Protein 7.6 g/dL (6.3-8.2)
[2023-09-10 15:30] LABS: Appearance,Urine Clear (Clear); Bilirubin,Urine Negative (Negative); Blood,Urine Negative (Negative); Color,Urine Yellow; Glucose,Urine (UA) Negative (Negative); Ketones,Urine 1+ (Negative); Leukocyte Esterase,Urine Negative (Negative); Mucus,Urine Many /hpf; Nitrite,Urine Negative (Negative); Protein,Urine 1+ (Negative); RBC,Urine 2 /hpf (0-5); Specific Gravity,Urine 1.036 (1.001-1.035); Squamous Epithelial Cell,Urine <1 /hpf (0-4); WBC,Urine 2 /hpf (0-5)
[2023-09-10 15:32] LABS: Amphetamine Screen,Urine Not Detected (NotDetected); Barbiturate Screen,Urine Not Detected (NotDetected); Benzodiazepines Screen,Urine Not Detected (NotDetected); Cocaine Screen,Urine Not Detected (NotDetected); Methadone Screen, Urine Not Detected (NotDetected); Opiate Screen,Urine Not Detected (NotDetected); Oxycodone Screen, Urine Not Detected (NotDetected); Phencyclidine Screen,Urine Not Detected (NotDetected); Tricyclic Antidepressant,Urine Not Detected (NotDetected); Urn Cannabinoid Scrn Not Detected (NotDetected)
--- NOTE | 2023-09-10 15:36 | XR ---
EXAMINATION TYPE: XR chest 2V DATE OF EXAM: 09/10/2023 3:24 PM CLINICAL INDICATION:Male, 33 years old with history of abdominal pain; [facility] COMPARISON: Chest radiographs from 06/30/2023. TECHNIQUE: XR chest 2V Frontal and lateral views of the chest. FINDINGS: Lungs/Pleura: There is no evidence of pleural effusion, focal consolidation, or pneumothorax. Pulmonary vascularity: Unremarkable. Heart/mediastinum: Cardiomediastinal silhouette is enlarged and stable. Musculoskeletal: No acute osseous pathology. Scoliosis changes of the spine. IMPRESSION: Scoliosis with cardiomegaly. No obvious acute process.
--- NOTE | 2023-09-10 15:38 | ED ---
General Adult HPI - General Chief complaint: Psychiatric Symptoms Stated complaint: Hallucinations Time Seen by Provider: 09/10/23 14:05 Source: patient, EMS, RN notes reviewed, old records reviewed Mode of arrival: EMS Limitations: no limitations - History of Present Illness Initial comments: Patient is a 33-year-old male who presents emergency department for vivid dreams that are upsetting to the patient after being started on new medication. Presents from his [facility] home. Started on mirtazapine recently. Patient also has a low-grade fever at this time with a history of recurrent UTIs. Has a history of cerebral palsy as well as mental disability. Denies any cough, fevers that were known to them prior to arrival, nausea, vomiting, abdominal pain, chest pain. No other acute complaints this time. No drug use. Presents for further evaluation.According to patient's mother, patient is otherwise at baseline mental status.His mother did convey to me that patient stated he wanted to kill himself. Agrees that he has a limited ability to do this however she is concerned regarding this. - Related Data Home Medications Medication Instructions Recorded Confirmed Baclofen [Lioresal] 20 mg PO BID@08,199910/28/20 09/10/23 Bismuth Subsalicylate 1 dose PO DIRECTED PRN 10/28/20 09/10/23 [Pepto-Bismol] Ibuprofen [Motrin Ib] 400 mg PO TID PRN 10/28/20 09/10/23 Loperamide [Imodium] 1 dose PO DIRECTED PRN 10/28/20 09/10/23 Magnesium Hydroxide [Milk of 1 dose PO DIRECTED PRN 10/28/20 09/10/23 Magnesia] Omeprazole 20 mg PO DAILY@0800 10/28/20 09/10/23 Pseudoephedrine [Sudafed] 30 - 60 mg PO Q6H PRN 10/28/20 09/10/23 diphenhydrAMINE [Benadryl] 25 mg PO DIRECTED PRN 10/28/20 09/10/23 Atorvastatin [Lipitor] 10 mg PO HS@199906/30/23 09/10/23 Carbamide Peroxide [Debrox Otic] 1 dose BOTH EARS DIRECTED PRN 06/30/23 09/10/23 Icy Hot Advanced Pain Relief 1 applic TOPICAL DIRECTED PRN 06/30/23 09/10/23 16-11% Cream Metoprolol Succinate (ER) [Toprol 25 mg PO DAILY@0800 06/30/23 09/10/23 XL] Tums E-X 750mg Chew 2 - 4 tab PO DIRECTED PRN 06/30/23 09/10/23 Acetaminophen [Tylenol] 650 mg PO Q4H PRN 09/10/23 09/10/23 Mirtazapine [Remeron] 15 mg PO HS PRN 09/10/23 09/10/23 Allergies Allergy/AdvReac Type Severity Reaction Status Date / Time No Known Allergies Allergy Verified 09/10/23 16:49 Review of Systems ROS Statement: Those systems with pertinent positive or pertinent negative responses have been documented in the HPI. Review of Systems: CONST: Denies known fever EYES: Denies blurry vision ENT: Denies nasal congestion C/V: Denies Chest pain RESP: Denies shortness of breath GI: Denies abdominal pain : Denies dysuria SKIN: Denies rash. MSK: Denies joint pain. NEURO: Denies headache ROS Other: All systems not noted in ROS Statement are negative. Past Medical History Past Medical History: Unable to Obtain Additional Past Medical History / Comment(s): mentally challenged, cerbral palsy History of Any Multi-Drug Resistant Organisms: Unobtainable Past Surgical History: Unable to Obtain Past Anesthesia/Blood Transfusion Reactions: Unable to Obtain Past Psychological History: Unable to Obtain Smoking Status: Unknown if ever smoked Past Alcohol Use History: Unable to Obtain Past Drug Use History: Unable to Obtain General Exam - General Exam Comments Initial Comments: General: Appears in no acute distress. Low-grade fever. HEAD: Normal with no signs of head trauma. EYES: PERRLA, EOMI ENT: Hearing grossly intact, normal oropharynx. RESPIRATORY: Clear breath sounds bilaterally. No wheezes, rales, or rhonchi. C/V: Regular rate and rhythm. S1 and S2 auscultated, no edema, peripheral pulses 2+ and intact throughout ABD: Abd is soft, nontender, nondistended EXT: Normal range of motion, no obvious deformity. Chronic contractions from CP history. SKIN: No rashes or lesions observed on exposed skin. NEURO: Alert and oriented x 2-3 which is his baseline. No obvious focal acute deficits. Limitations: no limitations Course Vital Signs 09/10/23 09/10/23 13:50 19:49 Temperature 100.4 F H 98.9 F Pulse Rate 99 87 Respiratory 20 16 Rate Blood Pressure 140/110 150/98 O2 Sat by Pulse 95 97 Oximetry Medical Decision Making - Medical Decision Making Was pt. sent in by a medical professional or institution ([facility], [employer]ENDER, urgent care, hospital, or longterm...) When possible be specific @ -No Did you speak to anyone other than the patient for history (EMS, parent, family, police, friend...)? What history was obtained from this source @ -Spoke with patient's mother who is at bedside who provides patient's past medical history. Did you review nursing and triage notes (agree or disagree)? Why? @ -I reviewed and agree with nursing and triage notes Were old charts reviewed (outside hosp., previous admission, EMS record, old EKG, old radiological studies, urgent care reports/EKG's, longterm records)? Report findings @ -No old charts were reviewed Differential Diagnosis (chest pain, altered mental status, abdominal pain women, abdominal pain men, vaginal bleeding, weakness, fever, dyspnea, syncope, headache, dizziness, GI bleed, back pain, seizure, CVA, palpatations, mental health, musculoskeletal)? @ -UTI, weakness, infection, medication side effect, hallucinations. This list is not all inclusive. EKG interpreted by me (3pts min.). @ -As above X-rays interpreted by me (1pt min.). @ -Chest x-ray reveals no obvious acute process. CT interpreted by me (1pt min.). @ -None done U/S interpreted by me (1pt. min.). @ -None done What testing was considered but not performed or refused? (CT, X-rays, U/S, labs)? Why? @ -None What meds were considered but not given or refused? Why? @ -None Did you discuss the management of the patient with other professionals (professionals i.e. [facility], NEEDLE LOOM TENDER, lab, RT, psych nurse, social group worker, video effects editor, teacher, tax compliance officer, case management assistant)? Give summary @ -No Was smoking cessation discussed for >3mins.? @ -No Was critical care preformed (if so, how long)? @ -No Were there social determinants of health that impacted care today? How? (Homelessness, low income, unemployed, alcoholism, drug addiction, transportation, low edu. Level, literacy, decrease access to med. care, shelter, rehab)? @ -No Was there de-escalation of care discussed even if they declined (Discuss DNR or withdrawal of care, Hospice)? DNR status @ -No What co-morbidities impacted this encounter? (DM, HTN, Smoking, COPD, CAD, Cancer, CVA, ARF, Chemo, Hep., AIDS, mental health diagnosis, sleep apnea, morbid obesity)? @ -None Was patient admitted / discharged? Hospital course, mention meds given and route, prescriptions, significant lab abnormalities, going to OR and other pertinent info. @ -Patient presents with a fever and vivid dreams after starting a new medication recently. Vital signs are otherwise within acceptable limits. He wi ll be given a small fluid bolus as well as Tylenol for the fever. We will screen him for any form of infection at this time as well. Family in agreement this plan.No concern for serotonin syndrome as patient is not on any other serotonin agents. She is only on the new TCA agent. Patient's laboratory studies all returned within acceptable limits. No obvious acute infection. Likely is having a viral syndrome at this time. Chest x-ray unremarkable. Alcohol level is undetectable. At this time, patient's mother was updated via phone patient is medically cleared for evaluation by psychiatry. She notified me of the suicidal ideation at this time, suicide precautions and sitter was ordered. EPS evaluated the patient. Determined that he does not meet inpatient criteria. Patient be discharged home at this time. Family updated. They were in agreement this plan. Patient appears to be having vivid dreams. No active hallucinations. He wakes up upset following the dreams. Discharged home with a safety plan. Undiagnosed new problem with uncertain prognosis? @ -No Drug Therapy requiring intensive monitoring for toxicity (Heparin, Nitro, Insulin, Cardizem)? @ -No Were any procedures done? @ -No Diagnosis/symptom? @ -Viral syndrome, vivid dreams, encounter for psychiatric evaluation Acute, or Chronic, or Acute on Chronic? @ -Acute Uncomplicated (without systemic symptoms) or Complicated (systemic symptoms)? @ -Uncomplicated Side effects of treatment? @ -None Exacerbation, Progression, or Severe Exacerbation] @ -No Poses a threat to life or bodily function? @ -Unlikely - Lab Data Result diagrams: 09/10/23 14:30 09/10/23 14:30 Lab Results 09/10/23 09/10/23 09/10/23 Range/Units 14:30 14:30 14:30 WBC 10.2 (3.8-10.6) k/uL RBC 5.53 (4.30-5.90) m/uL Hgb 15.1 (13.0-17.5) gm/dL Hct 47.3 (39.0-53.0) % MCV 85.6 (80.0-100.0) fL MCH 27.3 (25.0-35.0) pg MCHC 31.8 (31.0-37.0) g/dL RDW 13.2 (11.5-15.5) % Plt Count 245 (150-450) k/uL MPV 8.6 Neutrophils % 76 % Lymphocytes % 16 % Monocytes % 6 % Eosinophils % 0 % Basophils % 1 % Neutrophils # 7.8 H (1.3-7.7) k/uL Lymphocytes # 1.6 (1.0-4.8) k/uL Monocytes # 0.6 (0-1.0) k/uL Eosinophils # 0.0 (0-0.7) k/uL Basophils # 0.1 (0-0.2) k/uL Sodium 142 (137-145) mmol/L Potassium 4.2 (3.5-5.1) mmol/L Chloride 107 (98-107) mmol/L Carbon Dioxide 23 (22-30) mmol/L Anion Gap 12 mmol/L BUN 23 H (9-20) mg/dL Creatinine 0.66 (0.66-1.25) mg/dL Est GFR (CKD-EPI)AfAm >90 (>60 ml/min/1.73 sqM) Est GFR (CKD-EPI)NonAf >90 (>60 ml/min/1.73 sqM) Glucose 100 H (74-99) mg/dL Calcium 9.5 (8.4-10.2) mg/dL Total Bilirubin 0.8 (0.2-1.3) mg/dL AST 22 (17-59) U/L ALT 23 (4-49) U/L Alkaline Phosphatase 89 (38-126) U/L Total Protein 7.6 (6.3-8.2) g/dL Albumin 4.7 (3.5-5.0) g/dL Urine Color Yellow Urine Appearance Clear (Clear) Urine pH 6.0 (5.0-8.0) Ur Specific [place] 1.036 H (1.001-1.035) Urine Protein 1+ H (Negative) Urine Glucose (UA) Negative (Negative) Urine Ketones 1+ H (Negative) Urine Blood Negative (Negative) Urine Nitrite Negative (Negative) Urine Bilirubin Negative (Negative) Urine Urobilinogen 2.0 (<2.0) mg/dL Ur Leukocyte Esterase Negative (Negative) Urine RBC 2 (0-5) /hpf Urine WBC 2 (0-5) /hpf Ur Squamous Epith Cells <1 (0-4) /hpf Urine Mucus Many H (None) /hpf Urine Opiates Screen (NotDetected) Ur Oxycodone Screen (NotDetected) Urine Methadone Screen (NotDetected) Ur Barbiturates Screen (NotDetected) U Tricyclic Antidepress (NotDetected) Ur Phencyclidine Scrn (NotDetected) Ur Amphetamines Screen (NotDetected) U Methamphetamines Scrn (NotDetected) U Benzodiazepines Scrn (NotDetected) Urine Cocaine Screen (NotDetected) U Marijuana (THC) Screen (NotDetected) Serum Alcohol <10 mg/dL Influenza Type A (PCR) (Not Detectd) Influenza Type B (PCR) (Not Detectd) RSV (PCR) (Not Detectd) SARS-CoV-2 (PCR) (Not Detectd) 09/10/23 09/10/23 Range/Units 14:30 14:50 WBC (3.8-10.6) k/uL RBC (4.30-5.90) m/uL Hgb (13.0-17.5) gm/dL Hct (39.0-53.0) % MCV (80.0-100.0) fL MCH (25.0-35.0) pg MCHC (31.0-37.0) g/dL RDW (11.5-15.5) % Plt Count (150-450) k/uL MPV Neutrophils % % Lymphocytes % % Monocytes % % Eosinophils % % Basophils % % Neutrophils # (1.3-7.7) k/uL Lymphocytes # (1.0-4.8) k/uL Monocytes # (0-1.0) k/uL Eosinophils # (0-0.7) k/uL Basophils # (0-0.2) k/uL Sodium (137-145) mmol/L Potassium (3.5-5.1) mmol/L Chloride (98-107) mmol/L Carbon Dioxide (22-30) mmol/L Anion Gap mmol/L BUN (9-20) mg/dL Creatinine (0.66-1.25) mg/dL Est GFR (CKD-EPI)AfAm (>60 ml/min/1.73 sqM) Est GFR (CKD-EPI)NonAf (>60 ml/min/1.73 sqM) Glucose (74-99) mg/dL Calcium (8.4-10.2) mg/dL Total Bilirubin (0.2-1.3) mg/dL AST (17-59) U/L ALT (4-49) U/L Alkaline Phosphatase (38-126) U/L Total Protein (6.3-8.2) g/dL Albumin (3.5-5.0) g/dL Urine Color Urine Appearance (Clear) Urine pH (5.0-8.0) Ur Specific [place] (1.001-1.035) Urine Protein (Negative) Urine Glucose (UA) (Negative) Urine Ketones (Negative) Urine Blood (Negative) Urine Nitrite (Negative) Urine Bilirubin (Negative) Urine Urobilinogen (<2.0) mg/dL Ur Leukocyte Esterase (Negative) Urine RBC (0-5) /hpf Urine WBC (0-5) /hpf Ur Squamous Epith Cells (0-4) /hpf Urine Mucus (None) /hpf Urine Opiates Screen Not Detected (NotDetected) Ur Oxycodone Screen Not Detected (NotDetected) Urine Methadone Screen Not Detected (NotDetected) Ur Barbiturates Screen Not Detected (NotDetected) U Tricyclic Antidepress Not Detected (NotDetected) Ur Phencyclidine Scrn Not Detected (NotDetected) Ur Amphetamines Screen Not Detected (NotDetected) U Methamphetamines Scrn Not Detected (NotDetected) U Benzodiazepines Scrn Not Detected (NotDetected) Urine Cocaine Screen Not Detected (NotDetected) U Marijuana (THC) Screen Not Detected (NotDetected) Serum Alcohol mg/dL Influenza Type A (PCR) Not Detected (Not Detectd) Influenza Type B (PCR) Not Detected (Not Detectd) RSV (PCR) Not Detected (Not Detectd) SARS-CoV-2 (PCR) Not Detected (Not Detectd) - EKG Data -: EKG Interpreted by Me EKG Comments: 12-lead Electrocardiogram Interpretation Note EKG was reviewed and interpreted by myself. 12-lead ECG performed at 1435 is interpreted by me as revealing normal sinus rhythm at a rate of 96 beats per minute. [place] is normal. [place] 141 ms, QRS durations 84 ms, QTc is 382 ms.. There were no ST or T wave abnormalities to suggest myocardial ischemia or injury. R wave progression across the precordium was satisfactory. By my interpretation this EKG is non-diagnostic for acute ischemia. Disposition Clinical Impression: Encounter for psychiatric assessment, Vivid dream, Viral syndrome Disposition: HOME SELF-CARE Condition: Good Is patient prescribed a controlled substance at d/c from ED?: No Referrals: Javon Gunter MD [Primary Care Provider] - 1-2 days Time of Disposition: 20:00
[2023-09-10] MEDS: IBUPROFEN 600 MG TAB PO STA (18:53)
[2023-09-10 20:36] VITALS: TEMP 98.9
[2023-09-10 22:42] VITALS: BP 140/90; PULSE 68; RESP 18
== END 2023-09-10 22:18 | disposition home or self-care (01) ==
LOC: EC 13:48
DX: B34.9 Viral infection, unspecified (principal); G47.52 REM sleep behavior disorder; Z00.8 Encounter for other general examination; Z11.52 Encounter for screening for COVID-19
CPT/HCPCS: 36415; 71046; 80053; 80306; 80320; 81001; 85025; 87636; 93005; 99285

== ENCOUNTER 2023-09-15 13:51 | Emergency (ER) | payer MEDICARE, OTHER ==
[2023-09-15 15:22] LABS: Basophils # (A) 0.1 k/uL (0-0.2); Basophils % (A) 1 %; Eosinophils # (A) 0.1 k/uL (0-0.7); Eosinophils % (A) 1 %; HCT 45.7 % (39.0-53.0); HGB 14.6 gm/dL (13.0-17.5); Lymphocytes # (A) 1.6 k/uL (1.0-4.8); Lymphocytes % (A) 17 %; MCH 27.4 pg (25.0-35.0); MCHC 32.1 g/dL (31.0-37.0); MCV 85.5 fL (80.0-100.0); Mean Platelet Volume 8.6; Monocytes # (A) 0.5 k/uL (0-1.0); Monocytes % (A) 5 %; Neutrophils # (A) 7.1 k/uL (1.3-7.7); Neutrophils % (A) 74 %; Platelet Count 235 k/uL (150-450); RBC 5.35 m/uL (4.30-5.90); RDW 13.5 % (11.5-15.5); WBC 9.6 k/uL (3.8-10.6)
--- NOTE | 2023-09-15 15:24 | ED ---
General Adult HPI - General Chief complaint: Psychiatric Symptoms Stated complaint: Behavior Time Seen by Provider: 09/15/23 14:15 Source: patient, EMS, RN notes reviewed, old records reviewed Mode of arrival: EMS - History of Present Illness Initial comments: This is a 33-year-old male who lives in a intermediate. Patient has some developmental delay as well as cerebral palsy. Patient has been acting out at the intermediate according to the intermediate he has been seeing people and talking to people in the room that are not there. Mobile crisis has to have been called last few days on 3 different occasions. One-time mobile crisis did come out and see the patient. Patient does not give us any further history and no further history is available from anyone else because no one else came with the patient. - Related Data Home Medications Medication Instructions Recorded Confirmed Baclofen [Lioresal] 20 mg PO BID@08,199910/28/20 09/15/23 Bismuth Subsalicylate 1 dose PO DIRECTED PRN 10/28/20 09/15/23 [Pepto-Bismol] Ibuprofen [Motrin Ib] 400 mg PO TID PRN 10/28/20 09/15/23 Loperamide [Imodium] 1 dose PO DIRECTED PRN 10/28/20 09/15/23 Magnesium Hydroxide [Milk of 1 dose PO DIRECTED PRN 10/28/20 09/15/23 Magnesia] Omeprazole 20 mg PO DAILY@0810/28/20 09/15/23 diphenhydrAMINE [Benadryl] 25 mg PO DIRECTED PRN 10/28/20 09/15/23 Atorvastatin [Lipitor] 10 mg PO HS@199906/30/23 09/15/23 Carbamide Peroxide [Debrox Otic] 1 dose BOTH EARS DIRECTED PRN 06/30/23 09/15/23 Icy Hot Advanced Pain Relief 1 applic TOPICAL DIRECTED PRN 06/30/23 09/15/23 16-11% Cream Metoprolol Succinate (ER) [Toprol 25 mg PO DAILY@79906/30/23 09/15/23 XL] Tums E-X 750mg Chew 2 - 4 tab PO DIRECTED PRN 06/30/23 09/15/23 Acetaminophen [Tylenol] 650 mg PO Q4H PRN 09/10/23 09/15/23 Mirtazapine [Remeron] 15 mg PO HS PRN 09/10/23 09/15/23 Ciprofloxacin HCl [Cipro] 500 mg PO BID@0800,2000 09/15/23 09/15/23 Pseudoephedrine 12Hr [Sudafed 12 120 - 240 mg PO Q6H PRN 09/15/23 09/15/23 Hour] Previous Rx's Medication Instructions Recorded Sulfamethox-Tmp 800-160Mg [Bactrim 1 each PO Q12HR #14 tab 09/15/23 DS 800-160 mg] Allergies Allergy/AdvReac Type Severity Reaction Status Date / Time No Known Allergies Allergy Verified 09/15/23 16:42 Review of Systems ROS Statement: Those systems with pertinent positive or pertinent negative responses have been documented in the HPI. ROS Other: All systems not noted in ROS Statement are negative. Past Medical History Past Medical History: Unable to Obtain Additional Past Medical History / Comment(s): mentally challenged, cerbral palsy History of Any Multi-Drug Resistant Organisms: Unobtainable Past Surgical History: Unable to Obtain Past Anesthesia/Blood Transfusion Reactions: Unable to Obtain Past Psychological History: Unable to Obtain Smoking Status: Unknown if ever smoked Past Alcohol Use History: Unable to Obtain Past Drug Use History: Unable to Obtain General Exam - General Exam Comments Initial Comments: GENERAL: Contracted and does appear well-nourished however to what degree his contractions are normally I have no baseline for this. ENT: Neck is soft and supple. Oropharynx is clear. Moist mucous membranes. EYES: The sclera were anicteric and conjunctiva were pink and moist. Extraocular movements were intact and pupils were equal round and reactive to light. Eyelids were unremarkable. PULMONARY: Unlabored respirations. Good breath sounds bilaterally. No audible rales rhonchi or wheezing was noted. CARDIOVASCULAR: There is a regular rate and rhythm without any murmurs gallops or rubs. ABDOMEN: Soft and nontender with normal bowel sounds. SKIN: Skin is clear with no lesions or rashes and otherwise unremarkable. NEUROLOGIC: Patient is alert and oriented x 1. Cranial nerves II through XII are grossly intact. MUSCULOSKELETAL: Patient moves his arms but because of this or palsy difficult to assess if he is any weaker than baseline since I do not know his baseline. PSYCHIATRIC: Unable to assess Course Vital Signs 09/15/23 09/15/23 14:02 14:11 Temperature 98.1 F Pulse Rate 99 74 Respiratory 22 16 Rate Blood Pressure 150/115 O2 Sat by Pulse 93 L 97 Oximetry Medical Decision Making - Medical Decision Making Was pt. sent in by a medical professional or institution ([facility], [facility], urgent care, hospital, or [facility]...) When possible be specific @ -Patient was sent in by his intermediate Did you speak to anyone other than the patient for history (EMS, parent, family, police, friend...)? What history was obtained from this source @ -All of the history was given by EMS Did you review nursing and triage notes (agree or disagree)? Why? @ -I reviewed and agree with nursing and triage notes Were old charts reviewed (outside hosp., previous admission, EMS record, old EKG, old radiological studies, urgent care reports/EKG's, [facility] records)? Report findings @ -I compared today's urinalysis with prior. Today's urinalysis did show a little bit of blood and a little bit of white cells so I assume the patient had an infection Differential Diagnosis (chest pain, altered mental status, abdominal pain women, abdominal pain men, vaginal bleeding, weakness, fever, dyspnea, syncope, headache, dizziness, GI bleed, back pain, seizure, CVA, palpatations, mental health, musculoskeletal)? @ -Differential Mental Health Depression, anxiety, bipolar, psychosis, schizophrenia, borderline personality, situational depression, adjustment disorder, behavioral disorder, brain tumor, malingering, substance abuse, encephalopathy, medication reaction, dementia, hypothyroidism, degenerative neurologic disorder, lupus.... This is not meant to be all-inclusive list EKG interpreted by me (3pts min.). @ -As above X-rays interpreted by me (1pt min.). @ -None done CT interpreted by me (1pt min.). @ -None done U/S interpreted by me (1pt. min.). @ -None done What testing was considered but not performed or refused? (CT, X-rays, U/S, labs)? Why? @ -None What meds were considered but not given or refused? Why? @ -None Did you discuss the management of the patient with other professionals (professionals i.e. [facility] Mendes, SPICE BLENDER, lab, RT, psych nurse, social work associate, tax services professional, teacher, navigation officer, piano case and bench assembler)? Give summary @ -No Was smoking cessation discussed for >3mins.? @ -No Was critical care preformed (if so, how long)? @ -No Were there social determinants of health that impacted care today? How? (Homeles sness, low income, unemployed, alcoholism, drug addiction, transportation, low edu. Level, literacy, decrease access to med. care, [facility], rehab)? @ -No Was there de-escalation of care discussed even if they declined (Discuss DNR or withdrawal of care, Hospice)? DNR status @ -No What co-morbidities impacted this encounter? (DM, HTN, Smoking, COPD, CAD, Cancer, CVA, ARF, Chemo, Hep., AIDS, mental health diagnosis, sleep apnea, morbid obesity)? @ -None Was patient admitted / discharged? Hospital course, mention meds given and route, prescriptions, significant lab abnormalities, going to OR and other pertinent info. @ -Patient was given antibiotics for urinary tract infection and I will change to the outpatient antibiotics for the patient. Nursing spoke with mobile crisis and they thought the urinary tract infection may be having effect on his mentation and that is why he is acting out they felt it was safe to send the patient home and continue to observe the patient. Patient also denied seeing anyone else in his room or any people in his room. Patient denied any efforts to want to harm himself. Undiagnosed new problem with uncertain prognosis? @ -No Drug Therapy requiring intensive monitoring for toxicity (Heparin, Nitro, Insulin, Cardizem)? @ -No Were any procedures done? @ -No Diagnosis/symptom? @ -Urinary tract Acute, or Chronic, or Acute on Chronic? @ -Acute Uncomplicated (without systemic symptoms) or Complicated (systemic symptoms)? @ -Complicated Side effects of treatment? @ -No Exacerbation, Progression, or Severe Exacerbation? @ -No Poses a threat to life or bodily function? How? (Chest pain, [place], [place], pneumonia, PE, COPD, DKA, ARF, appy, cholecystitis, CVA, Diverticulitis, Homicidal, Suicidal, threat to staff... and all critical care pts) @ -No - Lab Data Result diagrams: 09/15/23 14:55 09/15/23 14:55 Lab Results 0509/15/23 09/15/23 Range/Units 14:55 14:55 14:55 WBC 9.6 (3.8-10.6) k/uL RBC 5.35 (4.30-5.90) m/uL Hgb 14.6 (13.0-17.5) gm/dL Hct 45.7 (39.0-53.0) % MCV 85.5 (80.0-100.0) fL MCH 27.4 (25.0-35.0) pg MCHC 32.1 (31.0-37.0) g/dL RDW 13.5 (11.5-15.5) % Plt Count 235 (150-450) k/uL MPV 8.6 Neutrophils % 74 % Lymphocytes % 17 % Monocytes % 5 % Eosinophils % 1 % Basophils % 1 % Neutrophils # 7.1 (1.3-7.7) k/uL Lymphocytes # 1.6 (1.0-4.8) k/uL Monocytes # 0.5 (0-1.0) k/uL Eosinophils # 0.1 (0-0.7) k/uL Basophils # 0.1 (0-0.2) k/uL Sodium 143 (137-145) mmol/L Potassium 3.8 (3.5-5.1) mmol/L Chloride 109 H (98-107) mmol/L Carbon Dioxide 22 (22-30) mmol/L Anion Gap 12 mmol/L BUN 15 (9-20) mg/dL Creatinine 0.66 (0.66-1.25) mg/dL Est GFR (CKD-EPI)AfAm >90 (>60 ml/min/1.73 sqM) Est GFR (CKD-EPI)NonAf >90 (>60 ml/min/1.73 sqM) Glucose 80 (74-99) mg/dL Calcium 9.3 (8.4-10.2) mg/dL Total Bilirubin 0.8 (0.2-1.3) mg/dL AST 22 (17-59) U/L ALT 20 (4-49) U/L Alkaline Phosphatase 94 (38-126) U/L Total Protein 7.3 (6.3-8.2) g/dL Albumin 4.4 (3.5-5.0) g/dL Urine Color Yellow Urine Appearance Clear (Clear) Urine pH 6.0 (5.0-8.0) Ur Specific [place] 1.031 (1.001-1.035) Urine Protein 1+ H (Negative) Urine Glucose (UA) Negative (Negative) Urine Ketones 2+ H (Negative) Urine Blood Negative (Negative) Urine Nitrite Negative (Negative) Urine Bilirubin Negative (Negative) Urine Urobilinogen 2.0 (<2.0) mg/dL Ur Leukocyte Esterase Trace H (Negative) Urine RBC 6 H (0-5) /hpf Urine WBC 6 H (0-5) /hpf Hyaline Casts 4 H (0-2) /lpf Urine Mucus Many H (None) /hpf Urine Opiates Screen Not Detected (NotDetected) Ur Oxycodone Screen Not Detected (NotDetected) Urine Methadone Screen Not Detected (NotDetected) Ur Barbiturates Screen Not Detected (NotDetected) U Tricyclic Antidepress Not Detected (NotDetected) Ur Phencyclidine Scrn Not Detected (NotDetected) Ur Amphetamines Screen Not Detected (NotDetected) U Methamphetamines Scrn Not Detected (NotDetected) U Benzodiazepines Scrn Not Detected (NotDetected) Urine Cocaine Screen Not Detected (NotDetected) U Marijuana (THC) Screen Not Detected (NotDetected) Disposition Clinical Impression: Urinary tract infection Disposition: HOME SELF-CARE Condition: Good Instructions (If sedation given, give patient instructions): Urinary Tract Infection in Men (ED) Prescriptions: Sulfamethox-Tmp 800-160Mg [Bactrim DS 800-160 mg] 1 each PO Q12HR #14 tab Is patient prescribed a controlled substance at d/c from ED?: No Referrals: Javon Gunter MD [Primary Care Provider] - 1-2 days Time of Disposition: 17:17
[2023-09-15 15:25] LABS: Appearance,Urine Clear (Clear); Bilirubin,Urine Negative (Negative); Blood,Urine Negative (Negative); Color,Urine Yellow; Glucose,Urine (UA) Negative (Negative); Hyaline Casts,Urine 4 /lpf (0-2); Ketones,Urine 2+ (Negative); Leukocyte Esterase,Urine Trace (Negative); Mucus,Urine Many /hpf; Nitrite,Urine Negative (Negative); Protein,Urine 1+ (Negative); RBC,Urine 6 /hpf (0-5); Specific Gravity,Urine 1.031 (1.001-1.035); WBC,Urine 6 /hpf (0-5)
[2023-09-15 15:37] LABS: Amphetamine Screen,Urine Not Detected (NotDetected); Barbiturate Screen,Urine Not Detected (NotDetected); Benzodiazepines Screen,Urine Not Detected (NotDetected); Cocaine Screen,Urine Not Detected (NotDetected); Methadone Screen, Urine Not Detected (NotDetected); Opiate Screen,Urine Not Detected (NotDetected); Oxycodone Screen, Urine Not Detected (NotDetected); Phencyclidine Screen,Urine Not Detected (NotDetected); Tricyclic Antidepressant,Urine Not Detected (NotDetected); Urn Cannabinoid Scrn Not Detected (NotDetected)
[2023-09-15 16:50] LABS: ALT 20 U/L (4-49); AST 22 U/L (17-59); African American GFR (CKD) >90 (>60 ml/min/1.73 sqM); Albumin 4.4 g/dL (3.5-5.0); Alkaline Phosphatase 94 U/L (38-126); Anion Gap 12 mmol/L; Blood Urea Nitrogen 15 mg/dL (9-20); Calcium 9.3 mg/dL (8.4-10.2); Carbon Dioxide 22 mmol/L (22-30); Chloride 109 mmol/L (98-107); Glucose 80 mg/dL (74-99); Non-African American GFR(CKD) >90 (>60 ml/min/1.73 sqM); Potassium 3.8 mmol/L (3.5-5.1); Sodium 143 mmol/L (137-145); Total Bilirubin 0.8 mg/dL (0.2-1.3); Total Protein 7.3 g/dL (6.3-8.2)
[2023-09-15] MEDS: cefTRIAXone IN SWFI 1,000 MG/10 ML SYRINGE IVP STA (18:08)
[2023-09-15] MEDS: cefTRIAXone 1,000 MG VIAL (IM USE) IM STA (18:18)
[2023-09-15 18:35] VITALS: RESP 18
[2023-09-15 22:44] VITALS: BP 136/95; PULSE 98; TEMP 98.2
== END 2023-09-15 22:22 | disposition home or self-care (01) ==
LOC: EC 13:51
DX: N39.0 Urinary tract infection, site not specified (principal)
CPT/HCPCS: 36415; 80053; 85025; 81001; 80306; 99285; 96372; J0696

== ENCOUNTER 2024-02-14 21:06 | Emergency (ER) | payer MEDICARE, OTHER ==
[2024-02-14 22:21] LABS: ALT 22 U/L (4-49); African American GFR (CKD) >90 (>60 ml/min/1.73 sqM); Albumin 4.5 g/dL (3.5-5.0); Anion Gap 11 mmol/L; Blood Urea Nitrogen 22 mg/dL (9-20); Calcium 9.2 mg/dL (8.4-10.2); Carbon Dioxide 24 mmol/L (22-30); Chloride 109 mmol/L (98-107); Glucose 149 mg/dL (74-99); Magnesium 1.7 mg/dL (1.6-2.3); Non-African American GFR(CKD) >90 (>60 ml/min/1.73 sqM); Sodium 144 mmol/L (137-145); Total Bilirubin 0.7 mg/dL (0.2-1.3)
[2024-02-14] MEDS: KETOROLAC 15 MG/ML 1 ML VIAL IVP STA (22:21)
[2024-02-14 22:25] LABS: AST 29 U/L (17-59); Alkaline Phosphatase 56 U/L (38-126); Potassium 4.7 mmol/L (3.5-5.1); Total Protein 7.2 g/dL (6.3-8.2)
--- NOTE | 2024-02-14 23:03 | XR ---
EXAM: XR Chest, 2 Views CLINICAL HISTORY: Chest Pain TECHNIQUE: Frontal and lateral views of the chest. COMPARISON: June 13, 2023 FINDINGS: Lungs: Unremarkable. No infiltration, atelectasis or mass density. Pleural space: Unremarkable. No pneumothorax. No pleural fluid. Heart: Unremarkable. No cardiomegaly. Mediastinum: Large retrocardiac hiatus hernia. Bones/joints: Severe scoliosis. No acute bone abnormalities. IMPRESSION: No acute findings in the chest. Large hiatus hernia.
--- NOTE | 2024-02-14 23:16 | XR ---
EXAM: XR Left Shoulder Complete, 2 or More Views CLINICAL HISTORY: shoulder pain TECHNIQUE: Two or more views of the left shoulder. COMPARISON: No relevant prior studies available. FINDINGS: Bones/joints: Unremarkable. No acute fracture. No dislocation. Soft tissues: Unremarkable. IMPRESSION: Normal left shoulder x-rays.
--- NOTE | 2024-02-14 23:20 | ED ---
Chest Pain HPI <Az Givens - Last Filed: 02/14/24 23:34> - General Source: EMS Mode of arrival: EMS Limitations: language barrier <Jayshree Collado - Last Filed: 02/20/24 13:00> - General Chief Complaint: Chest Pain Stated Complaint: Chest Pain Time Seen by Provider: 02/14/24 21:10 - History of Present Illness Initial Comments: 33-year-old male with past medical history of cerebral palsy who presents to the emergency department with reported chest pain since 750. Also had left shoulder pain for 2 days. Patient cannot provide much history due to his developmental delay. History is obtained from EMS who transported the patient to the hospital. They did provide him with 324 of aspirin and 4 mg of Zofran. No reported fevers. HPI otherwise limited (Jayshree Collado) - Related Data Home Medications Medication Instructions Recorded Confirmed Baclofen [Lioresal] 20 mg PO BID@0800,199910/28/20 09/15/23 Bismuth Subsalicylate 1 dose PO DIRECTED PRN 10/28/20 09/15/23 [Pepto-Bismol] Ibuprofen [Motrin Ib] 400 mg PO TID PRN 10/28/20 09/15/23 Loperamide [Imodium] 1 dose PO DIRECTED PRN 10/28/20 09/15/23 Magnesium Hydroxide [Milk of 1 dose PO DIRECTED PRN 10/28/20 09/15/23 Magnesia] Omeprazole 20 mg PO DAILY@0800 10/28/20 09/15/23 diphenhydrAMINE [Benadryl] 25 mg PO DIRECTED PRN 10/28/20 09/15/23 Atorvastatin [Lipitor] 10 mg PO HS@199906/30/23 09/15/23 Carbamide Peroxide [Debrox Otic] 1 dose BOTH EARS DIRECTED PRN 06/30/23 09/15/23 Icy Hot Advanced Pain Relief 1 applic TOPICAL DIRECTED PRN 06/30/23 09/15/23 16-11% Cream Metoprolol Succinate (ER) [Toprol 25 mg PO DAILY@0800 06/30/23 09/15/23 XL] Tums E-X 750mg Chew 2 - 4 tab PO DIRECTED PRN 06/30/23 09/15/23 Acetaminophen [Tylenol] 650 mg PO Q4H PRN 09/10/23 09/15/23 Mirtazapine [Remeron] 15 mg PO HS PRN 09/10/23 09/15/23 Ciprofloxacin HCl [Cipro] 500 mg PO BID@0800,2000 09/15/23 09/15/23 Pseudoephedrine 12Hr [Sudafed 12 120 - 240 mg PO Q6H PRN 09/15/23 09/15/23 Hour] Previous Rx's Medication Instructions Recorded Sulfamethox-Tmp 800-160Mg [Bactrim 1 each PO Q12HR #14 tab 09/15/23 DS 800-160 mg] Allergies Allergy/AdvReac Type Severity Reaction Status Date / Time No Known Allergies Allergy Verified 02/14/24 21:16 Review of Systems ROS Other: All systems not noted in ROS Statement are negative. <Az Givens - Last Filed: 02/14/24 23:34> ROS Other: All systems not noted in ROS Statement are negative. <Jayshree Collado - Last Filed: 02/20/24 13:00> ROS Statement: Those systems with pertinent positive or pertinent negative responses have been documented in the HPI. Past Medical History Past Medical History: Unable to Obtain Additional Past Medical History / Comment(s): mentally challenged, cerbral palsy History of Any Multi-Drug Resistant Organisms: Unobtainable Past Surgical History: Unable to Obtain Past Anesthesia/Blood Transfusion Reactions: Unable to Obtain Past Psychological History: Unable to Obtain Smoking Status: Unknown if ever smoked Past Alcohol Use History: Unable to Obtain Past Drug Use History: Unable to Obtain <Jayshree Collado - Last Filed: 02/20/24 13:00> General Exam Limitations: language barrier General appearance: alert, in no apparent distress Head exam: Present: atraumatic, normocephalic, normal inspection Eye exam: Present: normal appearance, PERRL, EOMI. Absent: scleral icterus, conjunctival injection, periorbital swelling ENT exam: Present: normal exam, mucous membranes moist Respiratory exam: Present: normal lung sounds bilaterally. Absent: respiratory distress, wheezes, rales, rhonchi, stridor Cardiovascular Exam: Present: regular rate, normal rhythm, normal heart sounds. Absent: systolic murmur, diastolic murmur, rubs, gallop, clicks GI/Abdominal exam: Present: soft, normal bowel sounds. Absent: distended, tenderness, guarding, rebound, rigid Extremities exam: Present: other (Contractures of all extremities. Tenderness to palpation of the left shoulder with restricted range of motion) <Jayshree Collado - Last Filed: 02/20/24 13:00> Course Vital Signs 02/14/24 02/15/24 21:08 01:15 Temperature 98.2 F 97.6 F Pulse Rate 96 74 Respiratory 17 16 Rate Blood Pressure 132/103 131/86 O2 Sat by Pulse 96 93 L Oximetry Chest Pain MDM <Jayshree Collado A - Last Filed: 02/20/24 13:00> - MDM Was pt. sent in by a medical professional or institution ([facility], [employer] OPERATOR, urgent care, hospital, or longterm...) When possible be specific @ -Yes patient was sent in from his [facility] home Did you speak to anyone other than the patient for history (EMS, parent, family, police, friend...)? What history was obtained from this source @ -Spoke with EMS for history Did you review nursing and triage notes (agree or disagree)? Why? @ -I reviewed and agree with nursing and triage notes Were old charts reviewed (outside hosp., previous admission, EMS record, old EKG, old radiological studies, urgent care reports/EKG's, longterm records)? Report findings @ -I reviewed old EKGs Differential Diagnosis (chest pain, altered mental status, abdominal pain women, abdominal pain men, vaginal bleeding, weakness, fever, dyspnea, syncope, headache, dizziness, GI bleed, back pain, seizure, CVA, palpatations, mental health, musculoskeletal)? @ -Differential Chest Pain: Stable Angina, Unstable Angina, STEMI, NSTEMI Aortic Dissection, Pneumothorax, Musculoskeletal, Esophageal Spasm GERD, Cholecystitis, Pancreatitis, Zoster, this is not meant to be an all-inclusive list. EKG interpreted by me (3pts min.). @ -Yes and demonstrates sinus rhythm with a rate of 92. Parable 152. QRS 86. QTc of 378. No acute ST segment elevations. Biphasic T wave with ST depression V2V3. Previously seen on old EKGs X-rays interpreted by me (1pt min.). @ -Yes and demonstrates hiatal hernia CT interpreted by me (1pt min.). @ -None done U/S interpreted by me (1pt. min.). @ -None done What testing was considered but not performed or refused? (CT, X-rays, U/S, labs)? Why? @ -None What meds were considered but not given or refused? Why? @ -None Did you discuss the management of the patient with other professionals (professionals i.e. Dr., PA, [employer] OPERATOR, lab, RT, psych nurse, social work case manager, waste disposal leakage tester, teacher, chief sales officer, machine adjuster leader case trim)? Give summary @Spoke with Dr. Givens who will take over care of the patient Was smoking cessation discussed for >3mins.? @ -No Was critical care preformed (if so, how long)? @ -No Were there social determinants of health that impacted care today? How? (Homelessness, low income, unemployed, alcoholism, drug addiction, transportation, low edu. Level, literacy, decrease access to med. care, custodial, rehab)? @ -No Was there de-escalation of care discussed even if they declined (Discuss DNR or withdrawal of care, Hospice)? DNR status @ -No What co-morbidities impacted this encounter? (DM, HTN, Smoking, COPD, CAD, Cancer, CVA, ARF, Chemo, Hep., AIDS, mental health diagnosis, sleep apnea, morbid obesity)? @ -Cerebral palsy Was patient admitted / discharged? Hospital course, mention meds given and route, prescriptions, significant lab abnormalities, going to OR and other pertinent info. @ -Upon arrival patient seen and evaluated in room 23. Thorough history and physical exam was performed. IV access was established. Laboratory studies are conducted. Shoulder and chest x-ray was performed. Laboratory studies and chest x-ray are reviewed. Studies are within normal limits. Patient will be discharged back to his shelter at this time Undiagnosed new problem with uncertain prognosis? @ -No Drug Therapy requiring intensive monitoring for toxicity (Heparin, Nitro, Insulin, Cardizem)? @ -No Were any procedures done? @ -No Diagnosis/symptom? @ -Acute chest/left shoulder pain Acute, or Chronic, or Acute on Chronic? @ -Acute Uncomplicated (without systemic symptoms) or Complicated (systemic symptoms)? @ -Uncomplicated Side effects of treatment? @ -No Exacerbation, Progression, or Severe Exacerbation? @ -No Poses a threat to life or bodily function? How? (Chest pain, [place], [place], pneumonia, PE, COPD, DKA, ARF, appy, cholecystitis, CVA, Diverticulitis, Homicidal, Suicidal, threat to staff... and all critical care pts) @ -No (Jayshree Collado) Disposition Is patient prescribed a controlled substance at d/c from ED?: No Time of Disposition: 23:34 <Az Givens - Last Filed: 02/14/24 23:34> <Jayshree Collado - Last Filed: 02/20/24 13:00> Clinical Impression: Chest pain Disposition: HOME SELF-CARE Condition: Fair Instructions (If sedation given, give patient instructions): Chest Pain (ED) Referrals: Javon Gunter MD [Primary Care Provider] - 1-2 days
[2024-02-14 23:21] LABS: INR 1.1 (<1.2); Partial Thromboplastin Time 24.2 sec (22.0-30.0)
[2024-02-15 00:18] LABS: Basophils % (A) 0 %; Eosinophils # (A) 0.1 k/uL (0-0.7); Eosinophils % (A) 1 %; HCT 43.2 % (39.0-53.0); Lymphocytes # (A) 1.6 k/uL (1.0-4.8); Lymphocytes % (A) 22 %; MCH 28.8 pg (25.0-35.0); MCHC 32.5 g/dL (31.0-37.0); MCV 88.5 fL (80.0-100.0); Monocytes # (A) 0.6 k/uL (0-1.0); Monocytes % (A) 7 %; Neutrophils # (A) 5.1 k/uL (1.3-7.7); Neutrophils % (A) 68 %; Platelet Count 197 k/uL (150-450); RBC 4.88 m/uL (4.30-5.90); RDW 13.1 % (11.5-15.5); WBC 7.5 k/uL (3.8-10.6)
[2024-02-15 01:18] VITALS: BP 131/86; PULSE 74; RESP 16; TEMP 97.6
== END 2024-02-15 03:45 | disposition home or self-care (01) ==
LOC: EC 21:06
DX: R07.89 Other chest pain (principal)
CPT/HCPCS: 36415; 71046; 80053; 83735; 84484; 85025; 85610; 85730; 93005; 96374; 99285

== ENCOUNTER 2024-03-15 16:30 | Emergency (ER) | payer MEDICARE, OTHER ==
[2024-03-15 17:18] LABS: Basophils % (A) 1 %; Eosinophils # (A) 0.2 k/uL (0-0.7); Eosinophils % (A) 2 %; HCT 48.1 % (39.0-53.0); HGB 15.6 gm/dL (13.0-17.5); Lymphocytes # (A) 1.2 k/uL (1.0-4.8); Lymphocytes % (A) 13 %; MCH 28.6 pg (25.0-35.0); MCHC 32.4 g/dL (31.0-37.0); MCV 88.4 fL (80.0-100.0); Mean Platelet Volume 7.9; Monocytes # (A) 0.7 k/uL (0-1.0); Monocytes % (A) 8 %; Neutrophils # (A) 7.2 k/uL (1.3-7.7); Neutrophils % (A) 77 %; Platelet Count 230 k/uL (150-450); RBC 5.44 m/uL (4.30-5.90); RDW 12.4 % (11.5-15.5); WBC 9.4 k/uL (3.8-10.6)
--- NOTE | 2024-03-15 17:22 | ED ---
General Adult HPI - General Chief complaint: Abdominal Pain Stated complaint: Abd pain Time Seen by Provider: 03/15/24 16:42 Source: patient, EMS Mode of arrival: EMS - History of Present Illness Initial comments: Dictation was produced using [employer] dictation software. please excuse any grammatical, word or spelling errors. Chief Complaint: 34-year-old male with cerebral palsy presents with abdominal pain History of Present Illness: Patient 34-year-old male he is a poor historian secondary to cerebral palsy brought in from the [facility] for abdominal pain. According to nurse received report from EMS patient is from [facility] home has been having abdominal pain for 3 days. Patient states that the pain is to his epigastric right upper quadrant area. Denies any nausea vomiting or fever. The ROS documented in this emergency department record has been reviewed and confirmed by me. Those systems with pertinent positive or negative responses have been documented in the HPI. All other systems are other negative and/or noncontributory. - Related Data Home Medications Medication Instructions Recorded Confirmed Baclofen [Lioresal] 20 mg PO BID@0800,199910/28/20 09/15/23 Bismuth Subsalicylate 1 dose PO DIRECTED PRN 10/28/20 09/15/23 [Pepto-Bismol] Ibuprofen [Motrin Ib] 400 mg PO TID PRN 10/28/20 09/15/23 Loperamide [Imodium] 1 dose PO DIRECTED PRN 10/28/20 09/15/23 Magnesium Hydroxide [Milk of 1 dose PO DIRECTED PRN 10/28/20 09/15/23 Magnesia] Omeprazole 20 mg PO DAILY@0810/28/20 09/15/23 diphenhydrAMINE [Benadryl] 25 mg PO DIRECTED PRN 10/28/20 09/15/23 Atorvastatin [Lipitor] 10 mg PO HS@199906/30/23 09/15/23 Carbamide Peroxide [Debrox Otic] 1 dose BOTH EARS DIRECTED PRN 06/30/23 09/15/23 Icy Hot Advanced Pain Relief 1 applic TOPICAL DIRECTED PRN 06/30/23 09/15/23 16-11% Cream Metoprolol Succinate (ER) [Toprol 25 mg PO DAILY@0800 06/30/23 09/15/23 XL] Tums E-X 750mg Chew 2 - 4 tab PO DIRECTED PRN 06/30/23 09/15/23 Acetaminophen [Tylenol] 650 mg PO Q4H PRN 09/10/23 09/15/23 Mirtazapine [Remeron] 15 mg PO HS PRN 09/10/23 09/15/23 Ciprofloxacin HCl [Cipro] 500 mg PO BID@0800,2000 09/15/23 09/15/23 Pseudoephedrine 12Hr [Sudafed 12 120 - 240 mg PO Q6H PRN 09/15/23 09/15/23 Hour] Previous Rx's Medication Instructions Recorded Sulfamethox-Tmp 800-160Mg [Bactrim 1 each PO Q12HR #14 tab 09/15/23 DS 800-160 mg] Allergies Allergy/AdvReac Type Severity Reaction Status Date / Time No Known Allergies Allergy Verified 03/15/24 16:42 Review of Systems ROS Statement: Those systems with pertinent positive or pertinent negative responses have been documented in the HPI. ROS Other: All systems not noted in ROS Statement are negative. Past Medical History Past Medical History: Hyperlipidemia, Hypertension Additional Past Medical History / Comment(s): Intelectual Disability, Cerbral Palsy, Hiatal Hernia, Hydrocephalus History of Any Multi-Drug Resistant Organisms: None Reported Past Surgical History: Orthopedic Surgery, Tonsillectomy Additional Past Surgical History / Comment(s): Circumcision, Right total hip replacement. Past Anesthesia/Blood Transfusion Reactions: Unable to Obtain Past Psychological History: Anxiety Smoking Status: Second hand smoke exposure Past Alcohol Use History: Rare Past Drug Use History: Marijuana General Exam - General Exam Comments Initial Comments: PHYSICAL EXAM: General Impression: Alert and oriented x3, not in acute distress HEENT: Normocephalic atraumatic, extra-ocular movements intact, pupils equal and reactive to light bilaterally, mucous membranes moist. Cardiovascular: Heart regular rate and rhythm Chest: Able to complete full sentences, no retractions, no tachypnea Abdomen: abdomen soft, non-tender, non-distended, no organomegaly Musculoskeletal: Pulses present and equal in all extremities, no peripheral edema contracted lower extremities, contracted upper extremities Motor: no focal deficits noted Neurological: CN II-XII grossly intact, no focal motor or sensory deficits noted Skin: Intact with no visualized rashes Psych: Normal affect and mood Course Vital Signs 03/15/24 03/15/24 03/15/24 16:34 17:05 18:06 Temperature 98.7 F 98.3 F Pulse Rate 72 80 95 Respiratory 20 18 20 Rate Blood Pressure 139/92 129/79 O2 Sat by Pulse 95 95 95 Oximetry - Reevaluation(s) Reevaluation #1: 03/15/24 18:44 Manual disimpaction was attempted. Stool is soft in the rectal vault. Patient not pushing stool from his rectum. At this point we attempted. Medical Decision Making - Medical Decision Making Was pt. sent in by a medical professional or institution (, PA, DIRECTOR PHYSICAL, urgent care, hospital, or detention...) When possible be specific @ -No Did you speak to anyone other than the patient for history (EMS, parent, family, police, friend...)? What history was obtained from this source @ -No Did you review nursing and triage notes (agree or disagree)? Why? @ -I reviewed and agree with nursing and triage notes Were old charts reviewed (outside hosp., previous admission, EMS record, old E KG, old radiological studies, urgent care reports/EKG's, detention records)? Report findings @ -No old charts were reviewed Differential Diagnosis (chest pain, altered mental status, abdominal pain women, abdominal pain men, vaginal bleeding, musculoskeletal, weakness, fever, dyspnea, syncope, headache, dizziness, GI bleed, back pain, seizure, CVA, palpatations, mental health)? @ -Differential Abdominal Pain Men: Appendicitis, cholecystitis, diverticulosis, ischemic bowel, pancreatitis, h epatitis, UTI, gastroenteritis, AAA, incarcerated hernia, bowel obstruction, constipation, inflammatory bowel, hepatitis, peptic ulcer disease, splenic infarction, perforated viscus, testicular torsion, this is not meant to be an all-inclusive list EKG interpreted by me (3pts min.). @ -None done X-rays interpreted by me (1pt min.). @ -None done CT interpreted by me (1pt min.). @ -CT shows fecal bolus with no obstruction U/S interpreted by me (1pt. min.). @ -None done What testing was considered but not performed or refused? (CT, X-rays, U/S, labs)? Why? @ -None What meds were considered but not given or refused? Why? @ -None Was smoking cessation discussed for >3mins.? @ -No Were there social determinants of health that impacted care today? How? (Homelessness, low income, unemployed, alcoholism, drug addiction, transportation, low edu. Level, literacy, decrease access to med. care, residential, rehab)? @ -No Was there de-escalation of care discussed even if they declined (Discuss DNR or withdrawal of care, Hospice)? DNR status @ -No What co-morbidities impacted this encounter? (DM, HTN, Smoking, COPD, CAD, Cancer, CVA, ARF, Chemo, Hep., AIDS, mental health diagnosis, sleep apnea, morbid obesity)? @ -Cerebral palsy, debility Was patient admitted / discharged? Hospital course, mention meds given and route, prescriptions, significant lab abnormalities, going to OR and other pe rtinent info. @ -34-year-old male with history of cerebral palsy presents with chief complaint of abdominal pain. Vital signs upon arrival are within acceptable limits. Laboratory evaluation is unremarkable. CT shows large fecal bolus. No obstruction. Patient given manual disimpaction with some removal of stool. Given an enema with even further bowel movement. Patient stable for discharge. Did you discuss the management of the patient with other professionals (professionals i.e. , PA, DIRECTOR PHYSICAL, lab, RT, psych nurse, social service coordinator, funeral director's assistant, teacher, real estate loan officer, embedded case manager)? Give summary @ -No Was critical care preformed (if so, how long)? @ -No Undiagnosed new problem with uncertain prognosis? @ -No Drug Therapy requiring intensive monitoring for toxicity (Heparin, Nitro, Insul in, Cardizem)? @ -No Were any procedures done? @ -No Diagnosis/symptom? Acute, or Chronic, or Acute on Chronic? Uncomplicated (without systemic symptoms) or Complicated (systemic symptoms)? @ -Constipation Side effects of treatment? @ -No Exacerbation, Progression, or Severe Exacerbation? @ -No Poses a threat to life or bodily function? How? (Chest pain, [place], [place], pneumonia, PE, COPD, DKA, ARF, appy, cholecystitis, CVA, Diverticulitis, Homicidal, Suicidal, threat to staff... and all critical care pts) @ -No - Lab Data Result diagrams: 03/15/24 17:08 03/15/24 17:08 Lab Results 03/15/24 03/15/24 Range/Units 17:08 17:08 WBC 9.4 (3.8-10.6) k/uL RBC 5.44 (4.30-5.90) m/uL Hgb 15.6 (13.0-17.5) gm/dL Hct 48.1 (39.0-53.0) % MCV 88.4 (80.0-100.0) fL MCH 28.6 (25.0-35.0) pg MCHC 32.4 (31.0-37.0) g/dL RDW 12.4 (11.5-15.5) % Plt Count 230 (150-450) k/uL MPV 7.9 Neutrophils % 77 % Lymphocytes % 13 % Monocytes % 8 % Eosinophils % 2 % Basophils % 1 % Neutrophils # 7.2 (1.3-7.7) k/uL Lymphocytes # 1.2 (1.0-4.8) k/uL Monocytes # 0.7 (0-1.0) k/uL Eosinophils # 0.2 (0-0.7) k/uL Basophils # 0.0 (0-0.2) k/uL Sodium 137 (137-145) mmol/L Potassium 4.6 (3.5-5.1) mmol/L Chloride 103 (98-107) mmol/L Carbon Dioxide 27 (22-30) mmol/L Anion Gap 7 mmol/L BUN 23 H (9-20) mg/dL Creatinine 0.59 L (0.66-1.25) mg/dL Est GFR (CKD-EPI)AfAm >90 (>60 ml/min/1.73 sqM) Est GFR (CKD-EPI)NonAf >90 (>60 ml/min/1.73 sqM) Glucose 130 H (74-99) mg/dL Calcium 9.5 (8.4-10.2) mg/dL Total Bilirubin 0.7 (0.2-1.3) mg/dL AST 29 (17-59) U/L ALT 31 (4-49) U/L Alkaline Phosphatase 70 (38-126) U/L Total Protein 7.6 (6.3-8.2) g/dL Albumin 4.7 (3.5-5.0) g/dL Lipase 289 (23-300) U/L Disposition Clinical Impression: Constipation Disposition: HOME SELF-CARE Condition: Good Instructions (If sedation given, give patient instructions): Constipation (ED) Additional Instructions: use miralax PRN constipation. Is patient prescribed a controlled substance at d/c from ED?: No Referrals: Javon Gunter MD [Primary Care Provider] - 1-2 days
[2024-03-15 17:31] LABS: ALT 31 U/L (4-49); AST 29 U/L (17-59); African American GFR (CKD) >90 (>60 ml/min/1.73 sqM); Albumin 4.7 g/dL (3.5-5.0); Alkaline Phosphatase 70 U/L (38-126); Anion Gap 7 mmol/L; Blood Urea Nitrogen 23 mg/dL (9-20); Calcium 9.5 mg/dL (8.4-10.2); Carbon Dioxide 27 mmol/L (22-30); Chloride 103 mmol/L (98-107); Glucose 130 mg/dL (74-99); Lipase 289 U/L (23-300); Non-African American GFR(CKD) >90 (>60 ml/min/1.73 sqM); Potassium 4.6 mmol/L (3.5-5.1); Sodium 137 mmol/L (137-145); Total Bilirubin 0.7 mg/dL (0.2-1.3); Total Protein 7.6 g/dL (6.3-8.2)
[2024-03-15] MEDS: SODIUM CHLORIDE 0.9% 1,000 ML IV STA (17:45)
[2024-03-15 18:07] VITALS: TEMP 98.3
--- NOTE | 2024-03-15 18:10 | CT ---
EXAMINATION TYPE: CT abdomen pelvis w con DATE OF EXAM: 03/15/2024 5:47 PM COMPARISON: None. CLINICAL INDICATION: Male, 34 years old with history of abdominal pain, Abdominal pain and distention . TECHNIQUE: Axial images were obtained from above the diaphragm to the pubic rami in the axial plane a t 5 mm thick sections. Reconstructed images are reviewed on the computer in the coronal plane. CONTRAST: 100 ml mL of Isovue 300. Study performed without Oral Contrast DLP: 766 mGycm, Automated exposure control for dose reduction was used. FINDINGS: Limited CT sections are obtained the lung bases. Some mild infiltrate within the lung bases compatib le with atelectasis.. Moderate size hiatal hernia is present. Scoliosis is present within the thorac olumbar spine. CT ABDOMEN: Liver: Normal Spleen: Normal Pancreas: Normal Adrenal glands: There is a 1.7 cm nodule on the posterior limb left adrenal gland. Right adrenal glan d appears normal. Gallbladder: Normal Kidneys: No masses are evident. No hydronephrosis is present. No cysts are present. Delayed images were obtained through the kidneys, which remain unremarkable. Aorta: Normal Inferior vena cava: Normal. CT PELVIS: There is a very large fecal retention through the rectum distention. This measures 9.6 cm transverse. Dilated but otherwise evident. No dilated small bowel loops are evident. Appendix: Normal as visualized. Urinary bladder: Normal. Genitourinary structures: No prostate enlargement is identified Osseous structures: No suspicious lytic or sclerotic lesions. There is a right hip prosthesis. IMPRESSION: 1. Large fecal bolus at the rectum likely with impaction and retention. Obstruction however is not i dentified at this time. 2. 1.7 cm nodule on the left adrenal gland. 3. Scoliosis. 4. Mild basilar atelectasis [facility], , 03/15/2024 6:08 PM
[2024-03-15 20:29] VITALS: RESP 18
[2024-03-15 21:13] VITALS: BP 124/90; PULSE 80
== END 2024-03-15 21:45 | disposition home or self-care (01) ==
LOC: EC 16:30
DX: K59.00 Constipation, unspecified (principal); G80.9 Cerebral palsy, unspecified; R53.81 Other malaise; Z77.22 Contact with and (suspected) exposure to environmental tobacco smoke (acute) (chronic)
CPT/HCPCS: 36415; 80053; 83690; 85025; 74177; 99284; 96360; Q9967

== ENCOUNTER 2024-04-24 12:49 | Emergency (ER) | payer MEDICARE, OTHER ==
[2024-04-24 12:57] VITALS: RESP 18
[2024-04-24 13:06] VITALS: TEMP 99.3
--- NOTE | 2024-04-24 13:14 | ED ---
General Adult HPI - General Chief complaint: Altered Mental Status Stated complaint: mental health Time Seen by Provider: 04/24/24 12:51 Source: patient Mode of arrival: EMS Limitations: altered mental status, physical limitation - History of Present Illness Initial comments: 34-year-old male past medical history history of cerebral palsy, hydrocephalus, presenting today from his long term for fever and hallucinations. The majority of history was obtained per EMS report and patient's mother. States the patient has been hallucinating for the last 2 days, sometimes seeing his grandmother or stating that one of his caregivers is to him. His mother states that this happens every time the patient gets a fever ever since this past June when he was hospitalized with worsening hydrocephalus. The patient denies any pain beyond chronic back pain at this point. He has not had any episodes of vomiting. Denies chest pain or abdominal pain. No difficulty in breathing. Patient mother states the patient does typically get UTIs. Fever at his facility was 100.6 degrees yesterday. No Tylenol given today. Vaccinations up to date. - Related Data Home Medications Medication Instructions Recorded Confirmed Baclofen [Lioresal] 20 mg PO BID@0800,199910/28/20 04/24/24 Omeprazole 20 mg PO DAILY@0800 10/28/20 04/24/24 Atorvastatin [Lipitor] 10 mg PO HS@199906/30/23 04/24/24 Metoprolol Succinate (ER) [Toprol 25 mg PO DAILY@0800 06/30/23 04/24/24 XL] Acetaminophen [Tylenol] 650 mg PO Q4H PRN 09/10/23 04/24/24 Mirtazapine [Remeron] 15 mg PO HS@199909/10/23 04/24/24 Docusate [Colace] 100 mg PO BID@08,199904/24/24 04/24/24 Losartan [Cozaar] 25 mg PO DAILY@0800 04/24/24 04/24/24 Allergies Allergy/AdvReac Type Severity Reaction Status Date / Time No Known Allergies Allergy Verified 04/24/24 14:47 Review of Systems ROS Statement: Those systems with pertinent positive or pertinent negative responses have been documented in the HPI. ROS Other: All systems not noted in ROS Statement are negative. Limitations: ROS unobtainable due to patients medical condition Past Medical History Past Medical History: Hyperlipidemia, Hypertension Additional Past Medical History / Comment(s): Intelectual Disability, Cerbral Palsy, Hiatal Hernia, Hydrocephalus History of Any Multi-Drug Resistant Organisms: None Reported Past Surgical History: Orthopedic Surgery, Tonsillectomy Additional Past Surgical History / Comment(s): Circumcision, Right total hip replacement. Past Anesthesia/Blood Transfusion Reactions: Unable to Obtain Past Psychological History: Anxiety Smoking Status: Second hand smoke exposure Past Alcohol Use History: Rare Past Drug Use History: Marijuana General Exam - General Exam Comments Initial Comments: PE: CONSTITUTIONAL: No apparent distress, well appearing SKIN: Warm, dry, no jaundice, hives or petechiae, small 1 cm scab on right buttock, without fluctuance or erythema, no wounds or or other lesions identified EYES: Pupils are equally round, extraocular movements intact without nystagmus, clear conjunctiva, non-icteric sclera HENT: Normocephalic, atraumatic, moist mucus membranes, oropharynx clear without exudates, no tympanic erythema NECK: , Full range of motion, normal appearance, Negative Brudzinski sign PULMONARY: Clear to auscultation without wheezes, rhonchi, or rales, normal excursion, no accessory muscle use and no stridor CARDIOVASCULAR: Regular rate, rhythm, normal S1 and S2. No appreciated murmurs, rubs or gallops. Strong radial pulses with intact distal perfusion. No lower extremity edema GASTROINTESTINAL: Soft, active bowel sounds throughout, non-tender, non- distended, no palpable masses, no rebound or guarding. No hepatosplenomegaly MUSCULOSKELETAL: All 4 extremities do have muscle wasting throughout,, chronic muscle contractures, no signs of acute injury, no redness or swelling, No calf swelling, no midline spinal tenderness to palpation NEUROLOGIC:_a/o x 3, GCS 15, patient alert, able to answer questions, follows commands quickly, no focal deficits, exam limited by patient's baseline speech making him difficult to understand, chronic muscle contracture PSYCHIATRIC: Pleasant calm mood and affect, denies hallucinations, SI or HI thought process is clear and linear Limitations: altered mental status, physical limitation Course Vital Signs 04/24/24 04/24/24 04/24/24 12:53 13:06 16:35 Temperature 98.3 F 99.3 F Pulse Rate 89 87 Respiratory 18 18 Rate Blood Pressure 135/84 143/78 O2 Sat by Pulse 95 99 Oximetry EKG Findings - EKG Comments: EKG Findings:: Sinus rhythm, rate 77 bpm, VA interval 139 ms, QRS duration 89 ms, QT/QTc 339/371 ms, normal axis, no ST elevations or depressions, no arrhythmia Medical Decision Making - Medical Decision Making Was pt. sent in by a medical professional or institution (, PA, VP PRO[employer], urgent care, hospital, or [facility]...) When possible be specific Patient sent in from [facility] Did you speak to anyone other than the patient for history (EMS, parent, family, police, friend...)? What history was obtained from this source I spoke with patient's mother who provided additional history as noted in HPI Did you review nursing and triage notes (agree or disagree)? Why? @ -I reviewed and agree with nursing and triage notes Were old charts reviewed (outside hosp., previous admission, EMS record, old EKG, old radiological studies, urgent care reports/EKG's, mcc records)? Report findings @Medical records reviewedOn 06/13/2023 when patient falls her mental status pat ient had CT brain performed which showed marked hydrocephalus Differential Diagnosis (chest pain, altered mental status, abdominal pain women, abdominal pain men, vaginal bleeding, weakness, fever, dyspnea, syncope, headache, dizziness, GI bleed, back pain, seizure, CVA, palpatations, mental health, musculoskeletal)? @Differential Fever: Pneumonia, viral URI, endocarditis, myocarditis, pericarditis, otitis, sinusitis, appendicitis, Cholecystitis, diverticulitis, hepatitis, colitis, UTI, meningitis, encephalitis, this is not meant to be an all-inclusive list. EKG interpreted by me (3pts min.). @ -As above X-rays interpreted by me (1pt min.). Cardiomegaly, hiatal hernia, no obvious consolidations or pleural effusions CT interpreted by me (1pt min.). @Ventriculomegaly, hydrocephalus, I see no abscess or hemorrhage on CT brain U/S interpreted by me (1pt. min.). @ -None done What testing was considered but not performed or refused? (CT, X-rays, U/S, labs)? Why? @ -None What meds were considered but not given or refused? Why? I did consider IV antibiotics however patient meets no SIRS criteria and has no infectious source Did you discuss the management of the patient with other professionals (professionals i.e. , PA, VP PRO[employer], lab, RT, psych nurse, manager social, conference center coordinator, teacher, juvenile correctional officer, block and case maker)? Give summary @ -No Was smoking cessation discussed for >3mins.? @ -No Was critical care preformed (if so, how long)? @ -No Were there social determinants of health that impacted care today? How? (Homelessness, low income, unemployed, alcoholism, drug addiction, transporta tion, low edu. Level, literacy, decrease access to med. care, retirement, rehab)? @ -No Was there de-escalation of care discussed even if they declined (Discuss DNR or withdrawal of care, Hospice)? @ -No What co-morbidities impacted this encounter? (DM, HTN, Smoking, COPD, CAD, Cancer, CVA, ARF, Chemo, Hep., AIDS, mental health diagnosis, sleep apnea, morbid obesity)? @ -CP, hydrocephalus Was patient admitted / discharged? Hospital course, mention meds given and route, prescriptions, significant lab abnormalities, going to OR and other pertinent info. @ -Discharged- patient is a 34-year-old gentleman with past past medical history cerebral palsy presenting from his long term for low-grade fevers and hallucinations. Temp 100.6 degrees yesterday at his facility. No Tylenol prior to arrival today. On my assessment patient is overall well-appearing, does have chronic muscle wasting/ contractures, is awake and alert nontoxic- appearing. He is not tachycardic or hypotensive. Rectal temp shows temp 99.3 degrees. Patient does endorse chronic back pain but otherwise denies any new pain. No midline spinal tenderness to palpation. Negative Brudzinski's sign. Unable to form Kernig's testing due to patient's chronic muscle contractures. He denies hallucinations to me and denies SI/HI. History is limited due to patient's cerebral palsy making it difficult to understand his speech at times. He has no focal neurologic deficits and is able to follow commands easily, lungs clear to auscultation bilaterally, tympanic membrane's are pearly graves, abdomen soft and nontender. Plan for infectious w/u analysis, lactic, CBC, CMP, cephed panel, CXR. CT brain. CT brain shows stable hydrocephalus, no signs of abscess, chest x-ray shows no consolidations or pleural effusions,Labs without leukocytosis, lactic is 1.2, neutrophils are not elevated, urinalysis with 1+ ketones otherwise no signs of infection, viral testing is negative. Patient has not had any fever here, no tachycardia hypoxia or hypotension. He is well, nontoxic with no meningeal signs. States his backline has improved with tylenol. He has not hallucinated here and is currently at his baseline mental status, per his mother. Discussed with patient's mother and patient reassuring findings and plan for discharge. Patient's mother is agreeable plan of care we discussed signs and symptoms to monitor for warranting return to the ER including fever beyond the next 48 hours, new symptoms such as cough, difficulty in breathing, new confusion, strong smelling urine, nausea vomiting or any further concerns of the patient's wellbeing. Patient be discharged back to [facility] Undiagnosed new problem with uncertain prognosis? @ -No Drug Therapy requiring intensive monitoring for toxicity (Heparin, Nitro, Insulin, Cardizem)? @ -No Were any procedures done? @ -No Diagnosis/symptom? @Dehydration Acute, or Chronic, or Acute on Chronic? @ Acute on chronic Uncomplicated (without systemic symptoms) or Complicated (systemic symptoms)? uncoomplicated Side effects of treatment? @ -No Exacerbation, Progression, or Severe Exacerbation? @ -No Poses a threat to life or bodily function? How? (Chest pain, [place], [place], pneumonia, PE, COPD, DKA, ARF, appy, cholecystitis, CVA, Diverticulitis, Homicidal, Suicidal, threat to staff... and all critical care pts) @ -No - Lab Data Result diagrams: 04/24/24 13:31 04/24/24 13:31 Lab Results 04/24/24 04/24/24 04/24/24 Range/Units 13:31 13:31 13:31 WBC 7.4 (3.8-10.6) k/uL RBC 5.78 (4.30-5.90) m/uL Hgb 16.5 (13.0-17.5) gm/dL Hct 51.2 (39.0-53.0) % MCV 88.6 (80.0-100.0) fL MCH 28.6 (25.0-35.0) pg MCHC 32.3 (31.0-37.0) g/dL RDW 12.6 (11.5-15.5) % Plt Count 284 (150-450) k/uL MPV 7.6 Neutrophils % 70 % Lymphocytes % 22 % Monocytes % 6 % Eosinophils % 1 % Basophils % 1 % Neutrophils # 5.2 (1.3-7.7) k/uL Lymphocytes # 1.6 (1.0-4.8) k/uL Monocytes # 0.5 (0-1.0) k/uL Eosinophils # 0.1 (0-0.7) k/uL Basophils # 0.0 (0-0.2) k/uL PT 12.8 H (10.0-12.5) sec INR 1.2 H (<1.2) APTT 26.1 (22.0-30.0) sec Sodium (137-145) mmol/L Potassium (3.5-5.1) mmol/L Chloride (98-107) mmol/L Carbon Dioxide (22-30) mmol/L Anion Gap mmol/L BUN (9-20) mg/dL Creatinine (0.66-1.25) mg/dL Est GFR (CKD-EPI)AfAm (>60 ml/min/1.73 sqM) Est GFR (CKD-EPI)NonAf (>60 ml/min/1.73 sqM) Glucose (74-99) mg/dL Plasma Lactic Acid Amando (0.7-2.0) mmol/L Calcium (8.4-10.2) mg/dL Total Bilirubin (0.2-1.3) mg/dL AST (17-59) U/L ALT (4-49) U/L Alkaline Phosphatase (38-126) U/L Total Protein (6.3-8.2) g/dL Albumin (3.5-5.0) g/dL Urine Color Yellow Urine Appearance Clear (Clear) Urine pH 7.0 (5.0-8.0) Ur Specific [place] 1.027 (1.001-1.035) Urine Protein Trace H (Negative) Urine Glucose (UA) Negative (Negative) Urine Ketones 1+ H (Negative) Urine Blood Negative (Negative) Urine Nitrite Negative (Negative) Urine Bilirubin Negative (Negative) Urine Urobilinogen <2.0 (<2.0) mg/dL Ur Leukocyte Esterase Negative (Negative) Urine Opiates Screen Not Detected (NotDetected) Ur Oxycodone Screen Not Detected (NotDetected) Urine Methadone Screen Not Detected (NotDetected) Ur Barbiturates Screen Not Detected (NotDetected) U Tricyclic Antidepress Not Detected (NotDetected) Ur Phencyclidine Scrn Not Detected (NotDetected) Ur Amphetamines Screen Not Detected (NotDetected) U Methamphetamines Scrn Not Detected (NotDetected) U Benzodiazepines Scrn Not Detected (NotDetected) Urine Cocaine Screen Not Detected (NotDetected) U Marijuana (THC) Screen Not Detected (NotDetected) Influenza Type A (PCR) (Not Detectd) Influenza Type B (PCR) (Not Detectd) RSV (PCR) (Not Detectd) SARS-CoV-2 (PCR) (Not Detectd) 04/24/24 04/24/24 04/24/24 Range/Units 13:31 13:31 13:31 WBC (3.8-10.6) k/uL RBC (4.30-5.90) m/uL Hgb (13.0-17.5) gm/dL Hct (39.0-53.0) % MCV (80.0-100.0) fL MCH (25.0-35.0) pg MCHC (31.0-37.0) g/dL RDW (11.5-15.5) % Plt Count (150-450) k/uL MPV Neutrophils % % Lymphocytes % % Monocytes % % Eosinophils % % Basophils % % Neutrophils # (1.3-7.7) k/uL Lymphocytes # (1.0-4.8) k/uL Monocytes # (0-1.0) k/uL Eosinophils # (0-0.7) k/uL Basophils # (0-0.2) k/uL PT (10.0-12.5) sec INR (<1.2) APTT (22.0-30.0) sec Sodium 141 (137-145) mmol/L Potassium 4.9 (3.5-5.1) mmol/L Chloride 100 (98-107) mmol/L Carbon Dioxide 30 (22-30) mmol/L Anion Gap 11 mmol/L BUN 23 H (9-20) mg/dL Creatinine 0.76 (0.66-1.25) mg/dL Est GFR (CKD-EPI)AfAm >90 (>60 ml/min/1.73 sqM) Est GFR (CKD-EPI)NonAf >90 (>60 ml/min/1.73 sqM) Glucose 83 (74-99) mg/dL Plasma Lactic Acid Amando 1.2 (0.7-2.0) mmol/L Calcium 10.8 H (8.4-10.2) mg/dL Total Bilirubin 0.8 (0.2-1.3) mg/dL AST 28 (17-59) U/L ALT 34 (4-49) U/L Alkaline Phosphatase 76 (38-126) U/L Total Protein 8.7 H (6.3-8.2) g/dL Albumin 5.6 H (3.5-5.0) g/dL Urine Color Urine Appearance (Clear) Urine pH (5.0-8.0) Ur Specific [place] (1.001-1.035) Urine Protein (Negative) Urine Glucose (UA) (Negative) Urine Ketones (Negative) Urine Blood (Negative) Urine Nitrite (Negative) Urine Bilirubin (Negative) Urine Urobilinogen (<2.0) mg/dL Ur Leukocyte Esterase (Negative) Urine Opiates Screen (NotDetected) Ur Oxycodone Screen (NotDetected) Urine Methadone Screen (NotDetected) Ur Barbiturates Screen (NotDetected) U Tricyclic Antidepress (NotDetected) Ur Phencyclidine Scrn (NotDetected) Ur Amphetamines Screen (NotDetected) U Methamphetamines Scrn (NotDetected) U Benzodiazepines Scrn (NotDetected) Urine Cocaine Screen (NotDetected) U Marijuana (THC) Screen (NotDetected) Influenza Type A (PCR) Not Detected (Not Detectd) Influenza Type B (PCR) Not Detected (Not Detectd) RSV (PCR) Not Detected (Not Detectd) SARS-CoV-2 (PCR) Not Detected (Not Detectd) Disposition Clinical Impression: Dehydration Disposition: HOME SELF-CARE Condition: Good Instructions (If sedation given, give patient instructions): Dehydration (ED), Fever in Adults (ED) Additional Instructions: Every disease is a spectrum and a small chance still exists that a serious condition could develop, for this reason, please monitor yourself closely for new, changing or worsening symptoms, fever beyond the next 48 hours, new symptoms such as cough, coughing up thick sputum or blood, difficulty in breathing, nausea vomiting diarrhea or abdominal pain, new confusion, strong smelling urine inability to tolerate/keep down fluids or your medications, inability to follow up with outpatient providers as instructed and should you experience these symptoms or should you have any further concerns for your wellbeing please return to the ED or call 911 immediately. PLEASE call your primary care physician as soon as possible to arrange / discuss plan for followup appointment. Appointment in the next 1-3 days is strongly encouraged if possible. PLEASE let us know here before you leave if there is anything further we can do to be of any assistance. Take care and feel Better! Is patient prescribed a controlled substance at d/c from ED?: No Referrals: Javon Gunter MD [Primary Care Provider] - 1-2 days
[2024-04-24 13:43] LABS: Basophils % (A) 1 %; Eosinophils # (A) 0.1 k/uL (0-0.7); Eosinophils % (A) 1 %; HCT 51.2 % (39.0-53.0); HGB 16.5 gm/dL (13.0-17.5); Lymphocytes # (A) 1.6 k/uL (1.0-4.8); Lymphocytes % (A) 22 %; MCH 28.6 pg (25.0-35.0); MCHC 32.3 g/dL (31.0-37.0); MCV 88.6 fL (80.0-100.0); Mean Platelet Volume 7.6; Monocytes # (A) 0.5 k/uL (0-1.0); Monocytes % (A) 6 %; Neutrophils # (A) 5.2 k/uL (1.3-7.7); Neutrophils % (A) 70 %; Platelet Count 284 k/uL (150-450); RBC 5.78 m/uL (4.30-5.90); RDW 12.6 % (11.5-15.5); WBC 7.4 k/uL (3.8-10.6)
[2024-04-24] MEDS: ACETAMINOPHEN TAB 500 MG TAB PO STA (13:48)
[2024-04-24] MEDS: SODIUM CHLORIDE 0.9% 1,000 ML IV ONE (13:51)
[2024-04-24 13:53] LABS: ALT 34 U/L (4-49); AST 28 U/L (17-59); African American GFR (CKD) >90 (>60 ml/min/1.73 sqM); Albumin 5.6 g/dL (3.5-5.0); Alkaline Phosphatase 76 U/L (38-126); Anion Gap 11 mmol/L; Blood Urea Nitrogen 23 mg/dL (9-20); Calcium 10.8 mg/dL (8.4-10.2); Carbon Dioxide 30 mmol/L (22-30); Chloride 100 mmol/L (98-107); Glucose 83 mg/dL (74-99); Non-African American GFR(CKD) >90 (>60 ml/min/1.73 sqM); Potassium 4.9 mmol/L (3.5-5.1); Sodium 141 mmol/L (137-145); Total Bilirubin 0.8 mg/dL (0.2-1.3); Total Protein 8.7 g/dL (6.3-8.2)
[2024-04-24 14:03] LABS: INR 1.2 (<1.2); Partial Thromboplastin Time 26.1 sec (22.0-30.0); Prothrombin Time 12.8 sec (10.0-12.5)
--- NOTE | 2024-04-24 14:50 | CT ---
EXAMINATION TYPE: CT brain wo con DATE OF EXAM: 04/24/2024 2:25 PM COMPARISON: 06/13/2023. CLINICAL INDICATION: Male, 34 years old with history of hallucinations, fever, hx CP, Hallucinations, fever, hx CP. TECHNIQUE: Brain: Axial CT images of the brain were obtained with coronal and sagittal reformats created and rev iewed. Contrast used: None. Oral contrast used: None. CT DLP: 1184.4 mGycm, Automated exposure control for dose reduction was used. FINDINGS: Brain: Extra-axial spaces: No abnormal extra-axial fluid collections. Ventricular system: Similar dilation of ventricular system. No obstructing mass seen within the ventr icular system. Cerebral parenchyma: No acute intraparenchymal hemorrhage or mass effect. The graves-white junction is well differentiated. Cerebellum: Unremarkable. Mass effect: No evidence of midline shift. Intracranial vasculature: unremarkable Soft tissues: Normal. Calvarium/osseous structures: No depressed skull fracture. Paranasal sinuses and mastoid air cells: Mild scattered paranasal sinus disease. Visualized orbits: Orbital contents are intact. IMPRESSION: 1. No acute intracranial process. 2. Similar dilation of ventricular system correlate for hydrocephalus. [facility], , 04/24/2024 2:48 PM
[2024-04-24 15:17] LABS: Appearance,Urine Clear (Clear); Bilirubin,Urine Negative (Negative); Blood,Urine Negative (Negative); Color,Urine Yellow; Glucose,Urine (UA) Negative (Negative); Ketones,Urine 1+ (Negative); Leukocyte Esterase,Urine Negative (Negative); Nitrite,Urine Negative (Negative); Protein,Urine Trace (Negative); Specific Gravity,Urine 1.027 (1.001-1.035); Urobilinogen,Urine <2.0 mg/dL (<2.0)
[2024-04-24 15:37] LABS: Amphetamine Screen,Urine Not Detected (NotDetected); Barbiturate Screen,Urine Not Detected (NotDetected); Benzodiazepines Screen,Urine Not Detected (NotDetected); Cocaine Screen,Urine Not Detected (NotDetected); Methadone Screen, Urine Not Detected (NotDetected); Opiate Screen,Urine Not Detected (NotDetected); Oxycodone Screen, Urine Not Detected (NotDetected); Phencyclidine Screen,Urine Not Detected (NotDetected); Tricyclic Antidepressant,Urine Not Detected (NotDetected); Urn Cannabinoid Scrn Not Detected (NotDetected)
--- NOTE | 2024-04-24 15:53 | XR ---
EXAMINATION TYPE: XR chest 2V DATE OF EXAM: 04/24/2024 3:36 PM COMPARISON: Chest radiographs from 02/14/2024 CLINICAL INDICATION: Male, 34 years old with history of altered mental status, fever; [facility] TECHNIQUE: XR chest 2V Frontal and lateral views of the chest. FINDINGS: Lungs/Pleura: There is no evidence of pleural effusion, focal consolidation, or pneumothorax. Pulmonary vascularity: Unremarkable. Heart/mediastinum: Cardiomediastinal silhouette is unremarkable. Hiatal hernia projects over the medi astinum. Musculoskeletal: No acute osseous pathology. There is scoliosis changes to the spine as seen on prior . IMPRESSION: Scoliosis changes with hiatal hernia present. [facility], , 04/24/2024 3:50 PM
[2024-04-24 16:36] VITALS: BP 143/78; PULSE 87
== END 2024-04-24 16:36 | disposition home or self-care (01) ==
LOC: EC 12:49
DX: E86.0 Dehydration (principal); R41.82 Altered mental status, unspecified; G91.9 Hydrocephalus, unspecified; Z77.22 Contact with and (suspected) exposure to environmental tobacco smoke (acute) (chronic)
CPT/HCPCS: 36415; 70450; 71046; 80053; 80306; 81003; 83605; 85025; 85610; 85730; 87636; 93005; 96360; 99285

== ENCOUNTER 2024-05-25 16:00 | Observation (INO) | payer MEDICARE, OTHER ==
[2024-05-25 16:39] LABS: Basophils % (A) 0 %; Eosinophils # (A) 0.3 k/uL (0-0.7); Eosinophils % (A) 1 %; HCT 52.4 % (39.0-53.0); HGB 17.4 gm/dL (13.0-17.5); Lymphocytes # (A) 0.9 k/uL (1.0-4.8); Lymphocytes % (A) 4 %; MCHC 33.2 g/dL (31.0-37.0); MCV 87.4 fL (80.0-100.0); Mean Platelet Volume 8.6; Monocytes % (A) 5 %; Neutrophils # (A) 18.4 k/uL (1.3-7.7); Neutrophils % (A) 89 %; Platelet Count 292 k/uL (150-450); RBC 5.99 m/uL (4.30-5.90); RDW 13.5 % (11.5-15.5); WBC 20.6 k/uL (3.8-10.6)
--- NOTE | 2024-05-25 17:04 | ED ---
SOB HPI - General Chief Complaint: Shortness of Breath Stated Complaint: Foreign obj stuck in throat Time Seen by Provider: 05/25/24 16:07 Source: patient, RN notes reviewed Mode of arrival: EMS Limitations: altered mental status, physical limitation - History of Present Illness Initial Comments: This is a 34-year-old male who presents to the emergency department for difficulty breathing. Patient has a history of cerebral palsy and paraplegia and lives in a long term. His mother advised that they were concerned that he had been having more nightmares and acting somewhat altered, which typically occurs when he has a UTI. However, when he was eating lunch today he began to choke on his food. Shortly afterwards he started to develop respiratory distress they were concerned that something got stuck in his throat. EMS gave him a DuoNeb breathing treatment with some improvement in symptoms. Given his medical history he is unable to provide much history on his own. MD Complaint: shortness of breath - Related Data Home Medications Medication Instructions Recorded Confirmed Baclofen [Lioresal] 20 mg PO BID@0800,199910/28/20 04/24/24 Omeprazole 20 mg PO DAILY@79910/28/20 04/24/24 Atorvastatin [Lipitor] 10 mg PO HS@199906/30/23 04/24/24 Metoprolol Succinate (ER) [Toprol 25 mg PO DAILY@79906/30/23 04/24/24 XL] Acetaminophen [Tylenol] 650 mg PO Q4H PRN 09/10/23 04/24/24 Mirtazapine [Remeron] 15 mg PO HS@199909/10/23 04/24/24 Docusate [Colace] 100 mg PO BID@0800,199904/24/24 04/24/24 Losartan [Cozaar] 25 mg PO DAILY@0800 04/24/24 04/24/24 Allergies Allergy/AdvReac Type Severity Reaction Status Date / Time No Known Allergies Allergy Verified 04/24/24 14:47 Review of Systems ROS Statement: Those systems with pertinent positive or pertinent negative responses have been documented in the HPI. ROS Other: All systems not noted in ROS Statement are negative. Past Medical History Past Medical History: Hyperlipidemia, Hypertension Additional Past Medical History / Comment(s): Intelectual Disability, Cerbral Palsy, Hiatal Hernia, Hydrocephalus History of Any Multi-Drug Resistant Organisms: None Reported Past Surgical History: Orthopedic Surgery, Tonsillectomy Additional Past Surgical History / Comment(s): Circumcision, Right total hip replacement. Past Anesthesia/Blood Transfusion Reactions: Unable to Obtain Past Psychological History: Anxiety Smoking Status: Second hand smoke exposure Past Alcohol Use History: Rare Past Drug Use History: Marijuana General Exam Limitations: altered mental status, physical limitation General appearance: alert Head exam: Present: atraumatic, normocephalic, normal inspection Respiratory exam: Present: wheezes, rhonchi, decreased breath sounds, prolonged expiratory Cardiovascular Exam: Present: normal rhythm, tachycardia Neurological exam: Present: alert Skin exam: Present: warm, dry, intact, normal color. Absent: rash Course Vital Signs 05/25/24 05/25/24 05/25/24 16:06 16:08 16:20 Temperature 98.6 F Pulse Rate 118 H 110 H Respiratory 22 24 24 Rate Blood Pressure 145/98 145/85 O2 Sat by Pulse 92 L 95 Oximetry 05/25/24 05/25/24 05/25/24 17:08 18:08 18:45 Temperature 99 F Pulse Rate 110 H 113 H 104 H Respiratory 26 H 24 Rate Blood Pressure 145/90 118/86 O2 Sat by Pulse 94 L 93 L Oximetry 05/25/24 05/25/24 05/25/24 18:53 19:57 20:00 Temperature Pulse Rate 102 H 103 H 99 Respiratory 18 Rate Blood Pressure 121/71 O2 Sat by Pulse Oximetry 05/25/24 05/25/24 05/25/24 20:08 22:00 23:01 Temperature Pulse Rate 102 H 106 H 86 Respiratory 16 16 Rate Blood Pressure 133/82 109/57 O2 Sat by Pulse 93 L Oximetry Medical Decision Making - Medical Decision Making This is a 34-year-old male who presents to the emergency department for shortness of breath. Was pt. sent in by a medical professional or institution? @ -No Did you speak to anyone other than the patient for history? @ -EMS and family provided all of the history. Did you review nursing and triage notes? @ -Yes, and I agree, it is accurate with regards to the patient's symptoms. Were old charts reviewed? @ -No Differential Diagnosis? @ -Differential Dyspnea: Coronary syndrome, arrhythmia, tamponade, asthma, COPD, pulmonary embolism, pneumonia, pneumothorax, pulmonary effusion, anaphylaxis, diabetic ketoacidosis, flailed chest, pulmonary contusion, diaphragmatic rupture, anemia, neuromuscular, this is not meant to be an all-inclusive list. EKG interpreted by me (3pts min.)? @ -EKG interpreted by me demonstrating the following: Sinus tachycardia. Ventricular rate 111 bpm, RI interval 126 ms, QRS duration 82 ms, QTc 365 ms. X-rays interpreted by me (1pt min.)? @ -Chest x-ray obtained, my interpretation identifies no localized consolidations or infiltrates. CT interpreted by me (1pt min.)? @ -CT scan of the chest obtained. My interpretation identifies no focal consolidations. U/S interpreted by me (1pt. min.)? @ -Not obtained What testing was considered but not performed? (CT, X-rays, U/S, labs)? Why? @ -None What meds were considered but not given? Why? @ -None Did you discuss the management of the patient with other professionals? @ -Yes, Dr. Toure, who accepts the patient for admission. Did you reconcile home meds? @ -No Was smoking cessation discussed for >3mins.? @ -No Was critical care preformed (if so, how long)? @ -No Were there social determinants of health that impacted care today? How? (Homelessness, low income, unemployed, alcoholism, drug addiction, transportation, low edu. Level, literacy, decrease access to med. care, snf, rehab)? @ -No Was there de-escalation of care discussed even if they declined? (Discuss DNR or withdrawal of care, Hospice)? @ -No What co-morbidities impacted this encounter? (DM, HTN, Smoking, COPD, CAD, Cancer, CVA, Hep., AIDS, mental health diagnosis, sleep apnea, morbid obesity)? @ -Cerebral palsy, paraplegia Was patient admitted / discharged? @ -Admitted. Lab work demonstrates leukocytosis with a white blood cell count of 20.6. Lab work otherwise relatively unremarkable. D-dimer and troponin negative. COVID, influenza, and RSV testing negative. Chest x-ray reveals no acute process. We did obtain a CT scan of the chest for further evaluation due to concern for some sort of respiratory illness. He was found to have possible faint groundglass opacities and minimal edema or infiltrate could be present. However there were no suspicious focal consolidations. Patient may have an aspiration pneumonia that is not yet visible. He continued to remain tachycardi c and had poor lung sounds. Patient admitted to medicine for suspected early aspiration pneumonia. Blood and sputum cultures obtained. He was started on the pneumonia protocol with azithromycin, ceftriaxone, and Flagyl. Case discussed with ED attending Dr. Givens. Undiagnosed new problem with uncertain prognosis? @ -None Drug Therapy requiring intensive monitoring for toxicity (Heparin, Nitro, Insulin, Cardizem)? @ -None Were any procedures done? @ -None Diagnosis/symptom? @ -Respiratory distress, possible early pneumonia Acute, or Chronic, or Acute on Chronic? @ -Acute Uncomplicated (without systemic symptoms) or Complicated (systemic symptoms)? @ -Complicated Side effects of treatment? @ -None Exacerbation, Progression, or Severe Exacerbation] @ -Not applicable Poses a threat to life or bodily function? @ -Yes, can lead to further respiratory compromise. - Lab Data Result diagrams: 05/25/24 16:29 05/25/24 16:29 Lab Results 05/25/24 05/25/24 05/25/24 Range/Units 16:29 16:29 16:29 WBC 20.6 H (3.8-10.6) k/uL RBC 5.99 H (4.30-5.90) m/uL Hgb 17.4 (13.0-17.5) gm/dL Hct 52.4 (39.0-53.0) % MCV 87.4 (80.0-100.0) fL MCH 29.0 (25.0-35.0) pg MCHC 33.2 (31.0-37.0) g/dL RDW 13.5 (11.5-15.5) % Plt Count 292 (150-450) k/uL MPV 8.6 Neutrophils % 89 % Lymphocytes % 4 % Monocytes % 5 % Eosinophils % 1 % Basophils % 0 % Neutrophils # 18.4 H (1.3-7.7) k/uL Lymphocytes # 0.9 L (1.0-4.8) k/uL Monocytes # 1.0 (0-1.0) k/uL Eosinophils # 0.3 (0-0.7) k/uL Basophils # 0.0 (0-0.2) k/uL PT 12.5 (10.0-12.5) sec INR 1.2 H (<1.2) APTT 23.6 (22.0-30.0) sec D-Dimer 0.39 (<0.60) mg/L FEU Sodium (137-145) mmol/L Potassium (3.5-5.1) mmol/L Chloride (98-107) mmol/L Carbon Dioxide (22-30) mmol/L Anion Gap mmol/L BUN (9-20) mg/dL Creatinine (0.66-1.25) mg/dL Est GFR (CKD-EPI)AfAm (>60 ml/min/1.73 sqM) Est GFR (CKD-EPI)NonAf (>60 ml/min/1.73 sqM) Glucose (74-99) mg/dL Plasma Lactic Acid Amando 1.8 (0.7-2.0) mmol/L Calcium (8.4-10.2) mg/dL Magnesium (1.6-2.3) mg/dL Total Bilirubin (0.2-1.3) mg/dL AST (17-59) U/L ALT (4-49) U/L Alkaline Phosphatase (38-126) U/L Troponin I (0.000-0.034) ng/mL C-Reactive Protein (<1.0) mg/dL Total Protein (6.3-8.2) g/dL Albumin (3.5-5.0) g/dL Urine Color Urine Appearance (Clear) Urine pH (5.0-8.0) Ur Specific [place] (1.001-1.035) Urine Protein (Negative) Urine Glucose (UA) (Negative) Urine Ketones (Negative) Urine Blood (Negative) Urine Nitrite (Negative) Urine Bilirubin (Negative) Urine Urobilinogen (<2.0) mg/dL Ur Leukocyte Esterase (Negative) Influenza Type A (PCR) (Not Detectd) Influenza Type B (PCR) (Not Detectd) RSV (PCR) (Not Detectd) SARS-CoV-2 (PCR) (Not Detectd) 05/25/24 05/25/24 05/25/24 Range/Units 16:29 16:29 17:00 WBC (3.8-10.6) k/uL RBC (4.30-5.90) m/uL Hgb (13.0-17.5) gm/dL Hct (39.0-53.0) % MCV (80.0-100.0) fL MCH (25.0-35.0) pg MCHC (31.0-37.0) g/dL RDW (11.5-15.5) % Plt Count (150-450) k/uL MPV Neutrophils % % Lymphocytes % % Monocytes % % Eosinophils % % Basophils % % Neutrophils # (1.3-7.7) k/uL Lymphocytes # (1.0-4.8) k/uL Monocytes # (0-1.0) k/uL Eosinophils # (0-0.7) k/uL Basophils # (0-0.2) k/uL PT (10.0-12.5) sec INR (<1.2) APTT (22.0-30.0) sec D-Dimer (<0.60) mg/L FEU Sodium 139 (137-145) mmol/L Potassium 4.2 (3.5-5.1) mmol/L Chloride 103 (98-107) mmol/L Carbon Dioxide 23 (22-30) mmol/L Anion Gap 13 mmol/L BUN 22 H (9-20) mg/dL Creatinine 0.56 L (0.66-1.25) mg/dL Est GFR (CKD-EPI)AfAm >90 (>60 ml/min/1.73 sqM) Est GFR (CKD-EPI)NonAf >90 (>60 ml/min/1.73 sqM) Glucose 101 H (74-99) mg/dL Plasma Lactic Acid Amando (0.7-2.0) mmol/L Calcium 9.8 (8.4-10.2) mg/dL Magnesium 1.9 (1.6-2.3) mg/dL Total Bilirubin 0.9 (0.2-1.3) mg/dL AST 22 (17-59) U/L ALT 28 (4-49) U/L Alkaline Phosphatase 68 (38-126) U/L Troponin I <0.012 (0.000-0.034) ng/mL C-Reactive Protein 0.6 (<1.0) mg/dL Total Protein 7.9 (6.3-8.2) g/dL Albumin 4.9 (3.5-5.0) g/dL Urine Color Urine Appearance (Clear) Urine pH (5.0-8.0) Ur Specific [place] (1.001-1.035) Urine Protein (Negative) Urine Glucose (UA) (Negative) Urine Ketones (Negative) Urine Blood (Negative) Urine Nitrite (Negative) Urine Bilirubin (Negative) Urine Urobilinogen (<2.0) mg/dL Ur Leukocyte Esterase (Negative) Influenza Type A (PCR) Not Detected (Not Detectd) Influenza Type B (PCR) Not Detected (Not Detectd) RSV (PCR) Not Detected (Not Detectd) SARS-CoV-2 (PCR) Not Detected (Not Detectd) 05/25/24 Range/Units 20:22 WBC (3.8-10.6) k/uL RBC (4.30-5.90) m/uL Hgb (13.0-17.5) gm/dL Hct (39.0-53.0) % MCV (80.0-100.0) fL MCH (25.0-35.0) pg MCHC (31.0-37.0) g/dL RDW (11.5-15.5) % Plt Count (150-450) k/uL MPV Neutrophils % % Lymphocytes % % Monocytes % % Eosinophils % % Basophils % % Neutrophils # (1.3-7.7) k/uL Lymphocytes # (1.0-4.8) k/uL Monocytes # (0-1.0) k/uL Eosinophils # (0-0.7) k/uL Basophils # (0-0.2) k/uL PT (10.0-12.5) sec INR (<1.2) APTT (22.0-30.0) sec D-Dimer (<0.60) mg/L FEU Sodium (137-145) mmol/L Potassium (3.5-5.1) mmol/L Chloride (98-107) mmol/L Carbon Dioxide (22-30) mmol/L Anion Gap mmol/L BUN (9-20) mg/dL Creatinine (0.66-1.25) mg/dL Est GFR (CKD-EPI)AfAm (>60 ml/min/1.73 sqM) Est GFR (CKD-EPI)NonAf (>60 ml/min/1.73 sqM) Glucose (74-99) mg/dL Plasma Lactic Acid Amando (0.7-2.0) mmol/L Calcium (8.4-10.2) mg/dL Magnesium (1.6-2.3) mg/dL Total Bilirubin (0.2-1.3) mg/dL AST (17-59) U/L ALT (4-49) U/L Alkaline Phosphatase (38-126) U/L Troponin I (0.000-0.034) ng/mL C-Reactive Protein (<1.0) mg/dL Total Protein (6.3-8.2) g/dL Albumin (3.5-5.0) g/dL Urine Color Yellow Urine Appearance Clear (Clear) Urine pH 5.5 (5.0-8.0) Ur Specific [place] 1.028 (1.001-1.035) Urine Protein Negative (Negative) Urine Glucose (UA) Negative (Negative) Urine Ketones 2+ H (Negative) Urine Blood Negative (Negative) Urine Nitrite Negative (Negative) Urine Bilirubin Negative (Negative) Urine Urobilinogen <2.0 (<2.0) mg/dL Ur Leukocyte Esterase Negative (Negative) Influenza Type A (PCR) (Not Detectd) Influenza Type B (PCR) (Not Detectd) RSV (PCR) (Not Detectd) SARS-CoV-2 (PCR) (Not Detectd) - Radiology Data Radiology results: report reviewed, image reviewed Disposition Clinical Impression: Respiratory distress, Pneumonia Disposition: ADMITTED IP TO THIS HOSP
[2024-05-25] MEDS: SODIUM CHLORIDE 0.9% 1,000 ML IV STA ×2 (17:16→18:06)
[2024-05-25] MEDS: LORazepam 2 MG/ML INJ IV STA (17:18)
[2024-05-25] MEDS: ONDANSETRON 4 MG/2 ML VIAL IVP STA (17:18)
[2024-05-25] MEDS: methylPREDNISolone SOD SUCCI 125 MG/2 ML VIAL IV STA (17:18)
[2024-05-25 17:48] LABS: Influenza A Not Detected (Not Detectd); Influenza B Not Detected (Not Detectd); RSV Not Detected (Not Detectd)
[2024-05-25] MEDS ORDERED: PNEUMONIA PROTOCOL UTILIZED 1 EACH MISC PO PRN (18:04)
[2024-05-25] MEDS ORDERED: IPRATROPIUM-ALBUTEROL 3 ML NEB INHALATION PRN (18:04)
[2024-05-25 18:12] LABS: INR 1.2 (<1.2); Partial Thromboplastin Time 23.6 sec (22.0-30.0); Prothrombin Time 12.5 sec (10.0-12.5)
[2024-05-25] MEDS: AZITHROMYCIN 500 MG in SODIUM CHLORIDE 0.9% 250 ML IVPB STA (18:15)
[2024-05-25 18:16] LABS: ALT 28 U/L (4-49); AST 22 U/L (17-59); African American GFR (CKD) >90 (>60 ml/min/1.73 sqM); Albumin 4.9 g/dL (3.5-5.0); Alkaline Phosphatase 68 U/L (38-126); Anion Gap 13 mmol/L; Blood Urea Nitrogen 22 mg/dL (9-20); C Reactive Protein 0.6 mg/dL (<1.0); Calcium 9.8 mg/dL (8.4-10.2); Carbon Dioxide 23 mmol/L (22-30); Chloride 103 mmol/L (98-107); Glucose 101 mg/dL (74-99); Magnesium 1.9 mg/dL (1.6-2.3); Non-African American GFR(CKD) >90 (>60 ml/min/1.73 sqM); Potassium 4.2 mmol/L (3.5-5.1); Sodium 139 mmol/L (137-145); Total Bilirubin 0.9 mg/dL (0.2-1.3); Total Protein 7.9 g/dL (6.3-8.2)
--- NOTE | 2024-05-25 18:37 | XR ---
EXAMINATION TYPE: XR chest 2V DATE OF EXAM: 05/25/2024 5:37 PM COMPARISON: None. CLINICAL INDICATION: Male, 34 years old with history of difficulty breathing, brought in by ems for p ossible airway obstruction. lung sounds wheezes noted bilaterally. TECHNIQUE: XR chest 2V view(s) obtained. FINDINGS: The heart size is enlarged. The pulmonary vasculature is normal. The lungs are clear. Scoliosis is present. IMPRESSION: 1. Cardiomegaly. 2. No acute pulmonary process radiographically apparent [facility], Workstation: [facility], 05/25/2024 6:35 PM
[2024-05-25] MEDS ORDERED: RX INFO: IV CONTRAST WAS GIVEN 1 EACH MISC MISCELLANE PRN (18:40)
[2024-05-25] MEDS: IPRATROPIUM-ALBUTEROL 3 ML NEB INHALATION STA (18:44)
[2024-05-25] MEDS: IPRATROPIUM-ALBUTEROL 3 ML NEB INHALATION SCH (19:57)
--- NOTE | 2024-05-25 20:03 | CT ---
EXAMINATION TYPE: CT chest wo con DATE OF EXAM: 05/25/2024 7:43 PM COMPARISON: None. CLINICAL INDICATION: Male, 34 years old with history of Fever, ASHLY, hx paraplegia and cerbal palys. c alled ems for possible airway obstruction. lung sounds wheezes noted bilat. TECHNIQUE: Axial images were obtained at 5 mm thick sections. Reconstructed images are reviewed on [employer] computer in the coronal plane. Contrast used: mL of , (none if empty) Oral contrast used: (none if empty) CT DLP: 390.5 mGycm, Automated exposure control for dose reduction was used. FINDINGS: Portion of the thyroid visualized is normal. No suspicious lung nodules or focal consolidations are present. Some faint groundglass opacities are present. No enlarged mediastinal or hilar adenopathy is evident. The ascending aorta diameter at the level o f the main pulmonary artery is 2.4 cm. The main pulmonary artery diameter at the bifurcation is 2.9 cm. Consider pulmonary hypertension Limited CT sections are obtained through the upper abdomen. Abdomen is essentially unremarkable. Scoliosis is present. There is a moderate size hiatal hernia present. IMPRESSION: 1. No acute pulmonary process present. There is some faint groundglass opacity, minimal edema or infi ltrate could be present. No suspicious focal consolidations. 2. Scoliosis. 3. Hiatal hernia 4. Somewhat prominent main pulmonary artery, consider pulmonary hypertension [facility], Workstation: [facility], 05/25/2024 8:01 PM
[2024-05-25 20:36] LABS: Appearance,Urine Clear (Clear); Bilirubin,Urine Negative (Negative); Blood,Urine Negative (Negative); Color,Urine Yellow; Glucose,Urine (UA) Negative (Negative); Ketones,Urine 2+ (Negative); Leukocyte Esterase,Urine Negative (Negative); Nitrite,Urine Negative (Negative); PH, Urine 5.5 (5.0-8.0); Protein,Urine Negative (Negative); Specific Gravity,Urine 1.028 (1.001-1.035); Urobilinogen,Urine <2.0 mg/dL (<2.0)
[2024-05-25] MEDS ORDERED: IBUPROFEN 400 MG TAB PO PRN (21:00)
[2024-05-25] MEDS ORDERED: NALOXONE 0.4 MG/ML 1 ML VIAL IV PRN (21:00)
[2024-05-25] MEDS ORDERED: ONDANSETRON 4 MG/2 ML VIAL IVP PRN (21:00)
[2024-05-25] MEDS ORDERED: ACETAMINOPHEN TAB 325 MG TAB PO PRN (21:00)
[2024-05-25] MEDS ORDERED: KETOROLAC 15 MG/ML 1 ML VIAL IVP PRN (21:00)
[2024-05-25] MEDS: metroNIDAZOLE-NS PMX 500 MG in SALINE 1 100ML.BAG IVPB SCH (21:50)
[2024-05-25] MEDS: SODIUM CHLORIDE 0.9% 1,000 ML IV SCH (22:01)
[2024-05-26] MEDS ORDERED: ACETAMINOPHEN TAB 325 MG TAB PO PRN (00:38)
--- NOTE | 2024-05-26 00:56 | P.HPIM ---
History of Present Illness H&P Date: 05/25/24 Patient is a 34-year-old male with history of cerebral palsy, hydrocephalus, paraplegia, dysphagia, disability, hypertension and hyperlipidemia was brought to the ER via EMS with concerns for difficulty breathing due to airway obstruction. The patient history is obtained from the patient given his past medical history therefore HPI was mainly obtained through reviewing the ER and EMS note, talking to mother via phone. Apparently patient's mom received a call from one of the nurses from the nursing facility and was notified that that he seems altered and is desaturating into the low 90s with high heart rate. Earlier today, patient was having lunch when he began to choke and started experiencing difficulty breathing. EMS was called who brought him to the ER for further evaluation for the concerns regarding airway obstruction. Mother states that patient has baseline difficulty with speech, however he is able to feed himself under supervision. He has history of aspiration and choking episodes before. According to the mother he has been admitted in the past for treatment of pneumonia. Laboratory data: WBC 20.6, hemoglobin 7.4, PT 12.5, INR 1.2, D-dimer 0.39, sodium 139, potassium 4.2, chloride 103, bicarb 23, BUN 22, creatinine 0.57, glucose 101, Urinalysis positive for ketosis Serology for influenza type A and B, RSV and COVID-19 negative Images: Chest x-ray interpreted independently shows cardiomegaly with no acute pulmonary process. CT of the chest shows no obvious focal consolidation. There is some faint groundglass opacities with minimal edema or infiltrate could be present. Presents of scoliosis and hiatal hernia. EKG showed normal sinus tachycardia with ventricular rate of 111 bpm. TX intervals 127 ms. QRS duration 82 ms. QTc 365 ms. Vitals: Initial vitals on arrival with temperature 98.6 F, heart rate 118, respiratory 22, blood pressure 145/98, oxygen saturation 92% on room air Review of systems: Pertinent positives and negatives as discussed in HPI, a complete review of systems was performed and all other systems are negative. Social history: Unable to obtain Refer to EMR Family History: Unable to obtain Refer to EMR Physical examination: Vital signs reviewed General: non toxic, no distress, appears at stated age, underweight Derm: no unusual rashes/lesions, warm Head: atraumatic, normocephalic, symmetric Eyes: EOMI, anicteric sclera, pupils equal round reactive to light ENT: Nose and ears atraumatic Neck: No cervical lymphadenopathy, trachea midline, supple Mouth: no lip lesion, mucus membranes moist Cardiovascular: S1S2 reg, no murmur, positive dorsalis pedis pulse bilateral, no edema Lungs: Expiratory wheezing noted on right lung base Abdominal: soft, nontender to palpation, no guarding Ext: muscle strength 5 out of 5 in upper extremities. 0 out of 5 in lower extremities. There is muscle wasting more prominent in lower extremities compared to upper extremities. Neuro: Patient is A&O x 1, he is able to answer questions and follow commands, exam is limited by patient's baseline speech making it difficult Psych: Alert, oriented, appropriate affect Assessment/Plan: This is a 34-year-old male with a history of cerebral palsy, paraplegia and disability is brought in to the ER via EMS for concerns regarding shortness of breath. Case was discussed with the Emergency Room provider and decision was made to admit the patient for possible pneumonia in the setting of altered mental status and aspiration risk for pneumonia #Aspiration pneumonia versus aspiration pneumonitis (most likely etiology) #Shortness of breath White blood cell count 20.6 Chest x-ray interpreted independently shows cardiomegaly with no acute pulmonary process. CT of the chest shows no obvious focal consolidation. Less suspicious for pneumonia Repeat CBC in a.m Discontinue IV antibiotics Zithromax and ceftriaxone if CBC unremarkable and procalcitonin negative with clinical improvement Order procalcitonin Order blood culture Order sputum culture Order urine Legionella antigen Aspiration precautions DuoNebs scheduled and [id number] #Debility #History of cerebral palsy, paraplegia Consult PT/OT Consult speech evaluation Continue with pured diet DVT prophylaxis: Lovenox subcu 40 mg daily GI prophylaxis: Omeprazole 20 mg daily F: IV normal saline at 100 cc/h E: Replete as needed N: Pured diet A: Debility The patient is admitted with an anticipated less than than 2 midnight stay for evaluation of aspiration pneumonia versus aspiration pneumonitis CODE STATUS: Full code Discussed with: [] Anticipated discharge place: Pending clinical course Dictation was produced using [employer] dictation software. Please excuse any grammatical, word or spelling errors. I have seen and evaluated the patient today. I Discussed the case with the resident and agree with the resident's findings I edited the assessment and plan as necessary as documented in the resident's note. Past Medical History Past Medical History: Hyperlipidemia, Hypertension Additional Past Medical History / Comment(s): Intelectual Disability, Cerbral Palsy, Hiatal Hernia, Hydrocephalus History of Any Multi-Drug Resistant Organisms: None Reported Past Surgical History: Orthopedic Surgery, Tonsillectomy Additional Past Surgical History / Comment(s): Circumcision, Right total hip replacement. Past Anesthesia/Blood Transfusion Reactions: Unable to Obtain Past Psychological History: Anxiety Smoking Status: Second hand smoke exposure Past Alcohol Use History: Rare Past Drug Use History: Marijuana Medications and Allergies Home Medications Medication Instructions Recorded Confirmed Type Baclofen [Lioresal] 20 mg PO BID@0800,199910/28/20 04/24/24 History Omeprazole 20 mg PO DAILY@0800 10/28/20 04/24/24 History Atorvastatin [Lipitor] 10 mg PO HS@199906/30/23 04/24/24 History Metoprolol Succinate (ER) [Toprol 25 mg PO DAILY@0800 06/30/23 04/24/24 History XL] Acetaminophen [Tylenol] 650 mg PO Q4H PRN 09/10/23 04/24/24 History Mirtazapine [Remeron] 15 mg PO HS@199909/10/23 04/24/24 History Docusate [Colace] 100 mg PO BID@08,199904/24/24 04/24/24 History Losartan [Cozaar] 25 mg PO DAILY@0800 04/24/24 04/24/24 History Allergies Allergy/AdvReac Type Severity Reaction Status Date / Time No Known Allergies Allergy Verified 04/24/24 14:47 Physical Exam Vitals: Vital Signs Temp Pulse Resp BP Pulse Ox 05/25/24 20:08 102 H 05/25/24 19:57 103 H 05/25/24 18:53 102 H 05/25/24 18:45 104 H 05/25/24 18:08 99 F 113 H 24 118/86 93 L 05/25/24 17:08 110 H 26 H 145/90 94 L 05/25/24 16:20 24 05/25/24 16:08 110 H 24 145/85 95 05/25/24 16:06 98.6 F 118 H 22 145/98 92 L Intake and Output 05/25/24 05/25/24 05/25/24 06:59 14:59 22:59 Other: Weight 58.967 kg Results CBC & Chem 7: 05/25/24 16:29 05/25/24 16:29 Labs: Abnormal Lab Results - Last 24 Hours (Table) 05/25/24 05/25/24 05/25/24 Range/Units 16:29 16:29 16:29 WBC 20.6 H (3.8-10.6) k/uL RBC 5.99 H (4.30-5.90) m/uL Neutrophils # 18.4 H (1.3-7.7) k/uL Lymphocytes # 0.9 L (1.0-4.8) k/uL INR 1.2 H (<1.2) BUN 22 H (9-20) mg/dL Creatinine 0.56 L (0.66-1.25) mg/dL Glucose 101 H (74-99) mg/dL Urine Ketones (Negative) 05/25/24 Range/Units 20:22 WBC (3.8-10.6) k/uL RBC (4.30-5.90) m/uL Neutrophils # (1.3-7.7) k/uL Lymphocytes # (1.0-4.8) k/uL INR (<1.2) BUN (9-20) mg/dL Creatinine (0.66-1.25) mg/dL Glucose (74-99) mg/dL Urine Ketones 2+ H (Negative)
[2024-05-26] MEDS: PANTOPRAZOLE 40 MG TABLET PO SCH (06:23)
[2024-05-26] MEDS ORDERED: AZITHROMYCIN 500 MG TAB PO SCH (09:00)
[2024-05-26] MEDS ORDERED: PANTOPRAZOLE 40 MG/10 ML VIAL IV SCH (09:00)
[2024-05-26] MEDS: BACLOFEN 10 MG TAB PO SCH (09:22)
[2024-05-26] MEDS: DOCUSATE 100 MG CAP PO SCH (09:23)
[2024-05-26 09:43] LABS: Basophils # (A) 0.01 X 10*3/uL (0.00-0.10); Basophils % (A) 0.1 %; Eosinophils # (A) 0.01 X 10*3/uL (0.04-0.35); Eosinophils % (A) 0.1 %; HCT 42.3 % (39.6-50.0); HGB 12.7 g/dL (13.0-17.0); Lymphocytes # (A) 0.57 X 10*3/uL (0.90-5.00); Lymphocytes % (A) 4.5 %; MCH 27.1 pg (27.0-32.0); MCV 90.4 FL (80.0-97.0); Mean Platelet Volume 11.1 FL (9.5-12.2); Monocytes % (A) 1.6 %; NRBC Per 100 WBC 0 X 10*3/uL (0.00-0.01); Neutrophils # (A) 11.82 X 10*3/uL (1.80-7.70); Neutrophils % (A) 93.3 %; Platelet Count 260 X 10*3/uL (140-440); RBC 4.68 X 10*6/uL (4.40-5.60); RDW 13.2 % (11.5-14.5); WBC 12.66 X 10*3/uL (4.50-10.00)
[2024-05-26 12:28] LABS: BUN/Creat Ratio 22.71 Ratio (12.00-20.00); Blood Urea Nitrogen 15.9 mg/dL (9.0-27.0); Calcium 8.3 mg/dL (8.7-10.3); Carbon Dioxide 21.9 mmol/L (21.6-31.8); Chloride 107 mmol/L (96-109); Glucose 155 mg/dL (70-110); Potassium 4.4 mmol/L (3.5-5.5); Sodium 140 mmol/L (135-145)
--- NOTE | 2024-05-26 14:12 | P.DS ---
Providers Date of admission: 05/25/24 21:02 Attending physician: Marcia Toure MD Primary care physician: Javon Gunter MD Hospital Course: Discharge Diagnosis: Aspiration pneumonitis Shortness of breath secondary to above, resolved History of cerebral palsy, paraplegia Debility Hospital Course: Patient is a 34-year-old male with history of cerebral palsy, hydrocephalus, paraplegia, dysphagia, disability, hypertension and hyperlipidemia was brought to the ER via EMS with concerns for difficulty breathing due to airway obstruction. The patient history is obtained from the patient given his past medical history therefore HPI was mainly obtained through reviewing the ER and EMS note, talking to mother via phone. Apparently patient's mom received a call from one of the nurses from the nursing facility and was notified that that he seems altered and is desaturating into the low 90s with high heart rate. Earlier today, patient was having lunch when he began to choke and started experiencing difficulty breathing. EMS was called who brought him to the ER for further evaluation for the concerns regarding airway obstruction. WBC 20.6, hemoglobin 7.4, PT 12.5, INR 1.2, D-dimer 0.39, sodium 139, potassium 4.2, chloride 103, bicarb 23, BUN 22, creatinine 0.57, glucose 101, Urinalysis positive for ketosis Serology for influenza type A and B, RSV and COVID-19 negative Images: Chest x-ray interpreted independently shows cardiomegaly with no acute pulmonary process. CT of the chest shows no obvious focal consolidation. There is some faint groundglass opacities with minimal edema or infiltrate could be present. Presents of scoliosis and hiatal hernia. Patient remained hemodynamically stable on room air throughout his hospital stay, his leukocytosis trended down significantly in 1 day from 20.6-12.6, procalcitonin negative, symptoms likely caused by aspiration pneumonitis, no antibiotics needed. Recommend to follow-up with speech as outpatient, no ASSOCIATE MANAGER available in our institution over the weekend. Patient seen and examined at bedside Vital signs reviewed General: non toxic, no distress, appears at stated age, underweight Derm: no unusual rashes/lesions, warm Head: atraumatic, normocephalic, symmetric Eyes: EOMI, anicteric sclera, pupils equal round reactive to light ENT: Nose and ears atraumatic Neck: No cervical lymphadenopathy, trachea midline, supple Mouth: no lip lesion, mucus membranes moist Cardiovascular: S1S2 reg, no murmur, positive dorsalis pedis pulse bilateral, no edema Lungs: Clear bilaterally Abdominal: soft, nontender to palpation, no guarding Ext: muscle strength 5 out of 5 in upper extremities. 0 out of 5 in lower extremities. There is muscle wasting more prominent in lower extremities compared to upper extremities. Neuro: Patient is A&O x 1, he is able to answer questions and follow commands, exam is limited by patient's baseline speech making it difficult Psych: Alert, oriented, appropriate affect A total of 40 minutes of time were spent preparing this complex discharge summary. Patient was discharged on 05/26/2024. Plan - Discharge Summary New Discharge Prescriptions: Continue Omeprazole 20 mg PO DAILY@0800 Baclofen [Lioresal] 20 mg PO BID@799,1999 Atorvastatin [Lipitor] 10 mg PO HS@1999 Metoprolol Succinate (ER) [Toprol XL] 25 mg PO DAILY@0800 Losartan [Cozaar] 25 mg PO DAILY@799 Docusate [Colace] 100 mg PO BID@ Acetaminophen [Tylenol] 650 mg PO Q4H PRN PRN Reason: Fever Mirtazapine 7.5 mg PO HS@1999 Discharge Medication List Baclofen [Lioresal] 20 mg PO BID@08,199910/28/20 [History] Omeprazole 20 mg PO DAILY@0800 10/28/20 [History] Atorvastatin [Lipitor] 10 mg PO HS@199906/30/23 [History] Metoprolol Succinate (ER) [Toprol XL] 25 mg PO DAILY@00 06/30/23 [History] Acetaminophen [Tylenol] 650 mg PO Q4H PRN 09/10/23 [History] Docusate [Colace] 100 mg PO BID@08,199904/24/24 [History] Losartan [Cozaar] 25 mg PO DAILY@00 04/24/24 [History] Mirtazapine 7.5 mg PO HS@199905/26/24 [History] Follow up Appointment(s)/Referral(s): Javon Gunter MD [Primary Care Provider] - 1-2 days Activity/Diet/Wound Care/Special Instructions: Please, follow up with PCP, ASSOCIATE MANAGER Discharge Disposition: HOME SELF-CARE
[2024-05-26 14:50] VITALS: BP 113/73; RESP 16; TEMP 97.9
[2024-05-26 17:25] VITALS: PULSE 100
[2024-05-26] MEDS ORDERED: MIRTAZAPINE 15 MG TAB PO SCH ×2 (21:00)
[2024-05-26] MEDS ORDERED: ATORVASTATIN 10 MG TAB PO SCH (21:00)
== END 2024-05-26 22:24 | disposition home or self-care (01) ==
LOC: EC 16:00 → 4SSUR 21:02
PROVIDERS: ADMIT Internal Medicine; ATTEND Internal Medicine
DX: J69.0 Pneumonitis due to inhalation of food and vomit (principal); G80.9 Cerebral palsy, unspecified; G91.9 Hydrocephalus, unspecified; I11.9 Hypertensive heart disease without heart failure; E78.5 Hyperlipidemia, unspecified; K44.9 Diaphragmatic hernia without obstruction or gangrene; M41.9 Scoliosis, unspecified; E88.89 Other specified metabolic disorders; R13.10 Dysphagia, unspecified; R53.81 Other malaise; Z79.899 Other long term (current) drug therapy; Z77.22 Contact with and (suspected) exposure to environmental tobacco smoke (acute) (chronic); Z11.52 Encounter for screening for COVID-19; Z11.59 Encounter for screening for other viral diseases
CPT/HCPCS: 96365; 96367; 96375; 99285; 36415; 94640 ×3; 93005; 85379; 80053; 80048; 87449; 83605; 83735; 84484; 85025 ×2; 85610; 85730; 86140; 81003; 87040; 84145; 87636; 71046; 71250; G0378 ×2; J2060; J2405; J0456; J0696; J1836; J2919